=== PATIENT | male | born 1985 | race Caucasian/White ===

== ENCOUNTER 2016-04-27 22:57 | Emergency (ER) | payer SELFPAY ==
[~2016-04-27] VITALS: Wt 67.5 kg
[2016-04-28] MEDS ORDERED: SOD CHLORIDE 0.9% 500 ML IV STA (06:09)
[2016-04-28 07:27] LABS: HEMATOCRIT 40.4 % (42.0-52.0); HEMOGLOBIN 13.8 g/dl (14.0-18.0); MEAN CORPUSCULAR HEMOGLOBIN 28.4 pg (29.0-33.0); MEAN CORPUSCULAR VOLUME 83.5 fl (82.0-101.0); MEAN PLATELET VOLUME 8.1 fl (7.4-10.4); PLATELET COUNT 142 10^3/UL (140-440); RED BLOOD COUNT 4.84 10^6/ul (4.70-6.10); UNCORRECTED WBC 2.6 10^3/ul (4.8-10.8); WHITE BLOOD COUNT 2.6 10^3/ul (4.8-10.8)
[2016-04-28 07:36] LABS: POTASSIUM 3.5 mmol/L (3.5-5.1)
[2016-04-28 07:38] LABS: ALBUMIN/GLOBULIN RATIO 1.28; BILIRUBIN,INDIRECT 0.3 mg/dl (0-1.1); BILIRUBIN,TOTAL 0.3 mg/dl (0.2-1.3); CREATININE 0.6 mg/dl (0.61-1.24); TOTAL PROTEIN 8.9 g/dl (6.1-8.1)
[2016-04-28 07:39] LABS: CALCIUM 8.6 mg/dl (8.4-10.2)
[2016-04-28 07:43] LABS: CONDITION 1; LH ANALYZER COMMENTS 1
[2016-04-28] MEDS ORDERED: PANT40TA3 PO (08:30)
--- NOTE | 2016-04-28 08:32 | ERD ---
ER Documentation Chief Complaint Date/Time DATE: 04/28/16 TIME: 08:30 Chief Complaint bib his friend due to etoh intoxication HPI 30-year-old male brought to the emergency department for being intoxicated with alcohol. Patient is a very limited historian saying that he drinks a lot of alcohol. He thinks he may have vomited one episode of blood but does not report significant hemorrhage. He reports no significant abdominal pain. He reports feeling shaky but is not reported any seizures. Patient has no other acute complaints. ROS All systems reviewed and are negative except as per history of present illness. Medications Home Meds Active Scripts Pantoprazole* (Protonix*) 40 Mg Tablet., 40 MG PO DAILY, #20 TAB Prov:CALISTA MATUTE 04/28/16 Allergies Allergies: Coded Allergies: No Known Allergy (Unverified , 04/28/16) PMhx/Soc Medical and Surgical Hx: pt denies Surgical Hx Anesthesia Reaction: No Hx Neurological Disorder: Yes (HTN HLD) Hx Respiratory Disorders: No Hx Cardiac Disorders: No Hx Psychiatric Problems: No Hx Miscellaneous Medical Probl: No Hx Alcohol Use: Yes Hx Substance Use: Yes Hx Tobacco Use: Yes Smoking Status: Current every day smoker FmHx Noncontributory for chief complaint Physical Exam Vitals Vital Signs Date Time Temp Pulse Resp B/P Pulse Ox O2 Delivery O2 Flow Rate FiO2 04/28/16 05:44 98.0 78 20 163/78 97 Room Air 04/27/16 23:02 98.1 118 20 189/86 96 Physical Exam GENERAL: The patient is well developed and appropriate for usual state of health in no apparent distress HEENT: Pupils equal, round, and reactive to light. EOMI. There is no scleral icterus. NECK: C-spine is soft and supple, there is no meningismus. There is no cervical lymphadenopathy. LUNGS: Clear to auscultation bilaterally. There are no rales, wheezes or rhonchi. HEART: Regular rate and rhythm, no murmurs, clicks, rubs or gallops. ABDOMEN: Soft, non-tender, non-distended. There are bowel sounds in all four quadrants. No rebound or guarding. EXTREMITIES: There is no peripheral cyanosis or edema. No focal swelling or erythema. NEURO: The patient moves all four extremities with 5/5 strength. Cranial nerves II - XII are intact. Normal gait. Alert and oriented, but with slurred speech. He appears intoxicated. SKIN: There is no apparent rash or petechiae. HEME/LYMPHATIC: There is no evidence of excessive bruising or lymphedema. PSYCHIATRIC: The patient does not appear anxious or depressed. Result Diagram: 04/28/16 0630 04/28/16 0630 Results 24 hrs Laboratory Tests Test 04/28/16 06:30 Alanine Aminotransferase (ALT/SGPT) 98IU/L Albumin 5.0g/dl Albumin/Globulin Ratio 1.28 Alkaline Phosphatase 95IU/L Anion Gap 26 Aspartate Amino Transf (AST/SGOT) 233IU/L Basophils # Pending Basophils % Pending Blood Morphology Comment Blood Urea Nitrogen 8mg/dl Calcium Level 8.6mg/dl Carbon Dioxide Level 29mmol/L Chloride Level 101mmol/L Creatinine 0.60mg/dl Direct Bilirubin 0.00mg/dl Eosinophils # Pending Eosinophils % Pending Globulin 3.90g/dl Glucose Level 97mg/dl Hematocrit 40.4% Hemoglobin 13.8g/dl Indirect Bilirubin 0.3mg/dl Lipase 276U/L Lymphocytes # Pending Lymphocytes % Pending Mean Corpuscular Hemoglobin 28.4pg Mean Corpuscular Hemoglobin Concent 34.0g/dl Mean Corpuscular Volume 83.5fl Mean Platelet Volume 8.1fl Monocytes # Pending Monocytes % Pending Neutrophils # Pending Neutrophils % Pending Nucleated Red Blood Cells # Pending Nucleated Red Blood Cells % Pending Platelet Count 02479^3/UL Potassium Level 3.5mmol/L Red Blood Count 4.8410^6/ul Red Cell Distribution Width 17.0% Sodium Level 152mmol/L Total Bilirubin 0.3mg/dl Total Protein 8.9g/dl White Blood Count 2.610^3/ul Current Medications Medications (Trade) Dose Ordered Sig/Nithin Route PRN Reason Start Time Stop Time Status Last Admin Dose Admin Sodium Chloride (NS) 500 ml @ 500 mls/hr Q1H STAT IV 04/28/16 06:09 04/28/16 07:08 DC 04/28/16 06:30 Procedures/MDM Patient was taken to a room, seen and evaluated. Comfort measures were initiated. Diagnostic tests were ordered and reviewed. REEVALUATION: Patient was observed until more sober. Serial examinations of his abdomen remained benign and his diagnostic tests were appreciated and reviewed. MEDICAL DECISION MAKING: This is a 30-year-old male who presents intoxicated with possible GI bleed. At this time, the patient's hemoglobin is normal and he shows no evidence of high risk liver cirrhosis. He does not appear to have portal hypertension and his hemoglobin is normal. Overall, this appears to be fairly classic alcohol induced gastritis. At this time, he shows no definitive other high-risk concerns and appears to be appropriate for outpatient care. Departure Diagnosis: Primary Impression: Alcoholic intoxication Condition: Stable Patient Instructions: Alcohol Intoxication Additional Instructions: stop drinking alcohol CALISTA MATUTE Apr 28, 2016 08:32
[2016-04-28 09:18] LABS: LYMPHOCYTES # 1.1 10^3/ul (0.8-2.9); MONOCYTE # 0.3 10^3/ul (0.3-0.9); NEUTROPHIL # 1.2 10^3/ul (1.6-7.5)
[2016-04-28 09:30] VITALS: BP 119/68; PULSE 80; RESP 20; TEMP 98
== END 2016-04-28 09:32 | disposition home or self-care (01) ==
LOC: E/R 22:57
DX: F10.129 Alcohol abuse with intoxication, unspecified (principal); I10 Essential (primary) hypertension; F17.210 Nicotine dependence, cigarettes, uncomplicated
CPT/HCPCS: 36415; 80053; 83690; 85025; 99284; J7040

== ENCOUNTER 2016-09-23 06:39 | Emergency (ER) | payer SELFPAY ==
[~2016-09-23] VITALS: Ht 157.5 cm; Wt 68.0 kg
[~2016-09-23 06:39] MED LIST: PANT40TA3 PO
[2016-09-23 06:42] VITALS: Ht 157.5 cm; Wt 68.0 kg
--- NOTE | 2016-09-23 07:02 | ERD ---
ER Documentation Chief Complaint Date/Time DATE: 09/23/16 TIME: 07:02 Chief Complaint abdominal pain and vomitting blood since wednesday HPI 32-year-old male who presented emergency department for abdominal pain since Wednesday. Added that he has on and off vomiting since Wednesday. Added that he is a heavy alcohol drinker. Patient has limited past medical history. Denies headache, loss of consciousness, dizziness, blurry vision, changes in vision, photophobia, facial pain, ear pain, throat pain, difficulty swallowing, neck pain, shoulder pain, chest pain, cough, back pain, loss of appetite, hematochezia, diarrhea, constipation, urinary symptoms, bladder and bowel incontinences, extremity weakness, extremity tenderness, numbness or tingling sensation, difficulty walking, recent travel, recent exposure to illness, recent antibiotic use in the last 3 months, fever, chills. Allergy: No known drug allergies. PMH: EtOH. Medications: Denies. Surgery: Denies. Family history: Denies family history of cardiac before age 50, colon cancer. Primary Social History: Works as a garage construction equipment mechanic. Denies smoking, use of use of illegal drugs. ROS All systems reviewed and are negative except as per history of present illness. Medications Home Meds Active Scripts Ondansetron (Ondansetron Odt) 4 Mg Tab.rapdis, 4 MG PO Q8 Y for NAUSEA AND/OR VOMITING, #20 TAB Prov:MARGIILABANHILDA F 09/23/16 Pantoprazole* (Protonix*) 40 Mg Tablet.dr, 40 MG PO DAILY, #20 TAB Prov:PASILABAN,YURIAR F 09/23/16 Famotidine* (Pepcid*) 20 Mg Tablet, 20 MG PO DAILY for 14 Days, TAB Prov:PASILABAN,YURIAR F 09/23/16 Acetaminophen (Tylenol) 500 Mg Tab, 500 MG PO Q4 Y for PAIN, #20 TAB Prov:PASILABAN,YURIAR F 09/23/16 Pantoprazole* (Protonix*) 40 Mg Tablet.dr, 40 MG PO DAILY, #20 TAB Prov:CALISTA MATUTE 04/28/16 Allergies Allergies: Coded Allergies: No Known Allergy (Unverified , 04/28/16) PMhx/Soc History of Surgery: No Anesthesia Reaction: No Hx Neurological Disorder: No Hx Respiratory Disorders: No Hx Cardiac Disorders: No Hx Psychiatric Problems: No Hx Miscellaneous Medical Probl: No Hx Alcohol Use: Yes Hx Substance Use: No Hx Tobacco Use: No Smoking Status: Never smoker Physical Exam Vitals Vital Signs Date Time Temp Pulse Resp B/P Pulse Ox O2 Delivery O2 Flow Rate FiO2 09/23/16 09:42 98.1 79 18 142/69 100 Room Air 09/23/16 06:42 97.7 66 19 179/99 100 Physical Exam CONSTITUTIONAL: Well-appearing; well-nourished; in no apparent distress. HEAD: Normocephalic; atraumatic. EYES: Conjunctiva clear, sclera non-icteric, EOM intact. PERRL Ears: Hearing intact. EACs clear, TMs non-bulging, non-inflamed, translucent & mobile, ossicles normal appearance, No obstructions, no erythema, no discharges Nose: No obstructions. No polyps. No external lesions. Mucosa non-inflamed. No external lesions, septum and turbinates normal. No rhinorrhea. No discharges. Frontal sinus is non-tender to palpation. Maxillary sinus is non-tender to palpation. MOUTH: Moist mucous membranes, no lesion, no obstructions, no vesicles, no thrush, patent airway Throat: Uvula in midline. Right tonsil is +1 with no erythema, no exudate. Left tonsil is +1 with no erythema, no exudate. Tolerating secretions well. Good gag reflex. Patent airway. Neck: Supple, without lesions, bruits, or adenopathy. No mass. Thyroid non- enlarged and non-tender to palpation. CHEST: Symmetrical chest. Respirations even and not labored. No retractions noted. CARDIOVASCULAR: Normal S1, S2. RRR. No murmurs, gallops. RESPIRATORY: Normal chest excursion with respiration; breath sounds clear and equal bilaterally; no wheezes, rhonchi, or rales. Breathing even and unlabored. Speaking in clear, full, and complete sentences w/ ease. ABDOMEN: Normal bowel sounds normal. Soft, round, non-distended, non-guarding, no rebound, no organomegaly, no masses, no pulsating abdominal mass. Has diffuse abdominal tenderness. No hernia. No peritoneal signs. : Bilateral CVA tenderness. BACK: Symmetrical shoulder. Spine is midline without deformity, tenderness. No evidence of trauma or deformity. PELVIS: Stable pelvis. No evidence of trauma or deformity. MUSCULOSKELETAL: Normal gait and station. No misalignment, asymmetry, crepitation, defects, tenderness, masses, effusions, decreased range of motion, instability, atrophy or abnormal strength or tone in the head, neck, spine, ribs , pelvis or extremities. No calf tenderness. NEUROVASCULAR: Distal pulses are present. Pedal pulse are present, equal, and normal. Capillary refills are < 2 seconds. NEUROLOGIC: Alert and oriented x4. Speaks full and clear sentences. Cranial Nerves II-XII normal. Sensation to pain, touch, and proprioception normal. Grossly unremarkable. No neurologic deficits. Romberg test is negative. PSYCHOLOGICAL: The patients mood and manner are appropriate. No hallucinations , delusions. Not SI. Not HI. Has the capacity to decide for self SKIN: Normal for age and ethnicity; warm; dry; good turgor; no apparent lesions or exudates. No rashes, hives, discoloration. Intact. Result Diagram: 09/23/16 0707 09/23/16 0707 Results 24 hrs Laboratory Tests Test 09/23/16 07:07 White Blood Count 3.410^3/ul Red Blood Count 4.3210^6/ul Hemoglobin 12.6g/dl Hematocrit 38.0% Mean Corpuscular Volume 88.0fl Mean Corpuscular Hemoglobin 29.2pg Mean Corpuscular Hemoglobin Concent 33.2g/dl Red Cell Distribution Width 13.9% Platelet Count 22579^3/UL Mean Platelet Volume 10.3fl Neutrophils % 55.1% Lymphocytes % 33.3% Monocytes % 8.6% Eosinophils % 2.1% Basophils % 0.6% Nucleated Red Blood Cells % 0.0/100WBC Neutrophils # 1.910^3/ul Lymphocytes # 1.110^3/ul Monocytes # 0.310^3/ul Eosinophils # 0.110^3/ul Basophils # 0.010^3/ul Nucleated Red Blood Cells # 0.010^3/ul Prothrombin Time 12.4Sec Prothrombin Time Ratio 1.0 INR International Normalized Ratio 0.92 Activated Partial Thromboplast Time 27.8Sec Urine Color YELLOW Urine Clarity CLEAR Urine pH 5.5 Urine Specific [place] >=1.030 Urine Ketones NEGATIVE Urine Nitrite NEGATIVE Urine Bilirubin 1+ Urine Ictotest NEGATIVE Urine Urobilinogen 1.0 E.U./dL Urine Leukocyte Esterase NEGATIVE Urine Microscopic RBC NONE SEEN/HPF Urine Microscopic WBC NONE SEEN/HPF Urine Hemoglobin NEGATIVE Urine Glucose NEGATIVE% Urine Total Protein TRACE Sodium Level 143mmol/L Potassium Level 4.2mmol/L Chloride Level 102mmol/L Carbon Dioxide Level 31mmol/L Anion Gap 14 Blood Urea Nitrogen 8mg/dl Creatinine 0.65mg/dl Glucose Level 95mg/dl Calcium Level 9.7mg/dl Total Bilirubin 0.8mg/dl Direct Bilirubin 0.00mg/dl Indirect Bilirubin 0.8mg/dl Aspartate Amino Transf (AST/SGOT) 42IU/L Alanine Aminotransferase (ALT/SGPT) 41IU/L Alkaline Phosphatase 62IU/L Total Protein 7.9g/dl Albumin 5.1g/dl Globulin 2.80g/dl Albumin/Globulin Ratio 1.82 Amylase Level 108U/L Lipase 54U/L Current Medications Medications (Trade) Dose Ordered Sig/Nithin Route PRN Reason Start Time Stop Time Status Last Admin Dose Admin Ondansetron HCl (Zofran Inj) 4 mg ONCE STAT IV 09/23/16 07:10 09/23/16 07:12 DC 09/23/16 07:14 Acetaminophen/ Hydrocodone Bitart ([place] (5/325)) 1 tab ONCE ONCE PO 09/23/16 09:30 09/23/16 09:31 DC 09/23/16 09:32 Procedures/MDM Examination: Please see physical examination. Disease process, medical treatment was explained to the patient and family member. They verbalized understanding and agreed with the diagnostic tests, medical treatment, and follow-up care. Blood works: Reviewed. Urinalysis: Reviewed. Treatment: IV insertion. Re-evaluation: Alert and oriented 4. Speaks full and clear sentences. Denies headache, dizziness, blurred vision, neck pain, throat pain, difficulty swallowing, shoulder pain, chest pain, back pain, abdominal pain, nausea. Tolerating secretions. No difficulty swallowing. Able to tolerate one cup of water by mouth. Patent airway. No episode of emesis in the emergency department. There is no right upper/right lower/epigastric/left upper/left lower abdominal tenderness and light and deep palpation. Able to jump 10 times without developing abdominal pain. No peritoneal signs. No CVA tenderness. No neurovascular deficits. No neurological deficits. Consultation: None. Differential diagnosis: Abdominal pain secondary to EtOH versus vomiting Medical decision makin-year-old male who presented emergency department for abdominal pain since Wednesday. Added that he has on and off vomiting since Wednesday. Added that he is a heavy alcohol drinker. Patient has limited past medical history. Patient's complaint, patient history about his complaint, my physical findings, diagnostic test results, my reevaluation are consistent my final diagnosis diverticulosis, abdominal pain. Medications prescribed are the following: Zofran. Pepcid. Tylenol. Patient and family member are made aware of the side effects and adverse reactions of the medications prescribed. Instructed on when to seek emergent and medical attention in case allergic/anaphylactic reactions or severe side effects and or adverse reactions to medications. Patient and family member verbalized understanding. Patient instructed Instructed to follow-up with his PCP in 24-48 hours. Instructed to Call 911 for chest pain, shortness of breath. Advised to come back here in ED as soon as possible for severity of symptoms which includes but not limited to: any new symptoms; shortness of breath/difficulty of breathing; cardiovascular changes; severe gastrointestinal symptoms; signs and symptoms of bleeding and or infection; signs of compartment syndrome/neurovascular changes; neurological changes/deficits. Patient and family member verbalized understanding. Upon discharge, patient is alert and oriented x 4, speaks full and clear sentences, denies pain, has no neurological deficits, has no neurovascular deficits, difficulty of breathing. Breathing even and unlabored. Lung sounds are clear to auscultation. Not in distress. Appears comfortable. Ambulatory with steady gait. Appears satisfied with care provided here in ED. Departure Diagnosis: Primary Impression: Abdominal pain Additional Impression: Diverticulosis Condition: Stable Additional Instructions: Instructed to follow-up with his PCP in 24-48 hours. Instructed to Call 911 for chest pain, shortness of breath. Advised to come back here in ED as soon as possible for severity of symptoms which includes but not limited to: any new symptoms; shortness of breath/difficulty of breathing; cardiovascular changes; severe gastrointestinal symptoms; signs and symptoms of bleeding and or infection; signs of compartment syndrome/neurovascular changes; neurological changes/deficits. Patient and family member verbalized understanding. HILDA CARDONA Sep 23, 2016 07:02
[2016-09-23] MEDS ORDERED: ONDANSETRON 4 MG INJ IV STA (07:10)
[2016-09-23 07:18] LABS: ADD SCAN DIFF NO
[2016-09-23 07:22] LABS: ADD UMIC YES; BASOPHILS % 0.6 % (0.0-2.0); EOSINOPHILS # 0.1 10^3/ul (0.0-0.5); EOSINOPHILS % 2.1 % (0.0-7.0); HEMOGLOBIN 12.6 g/dl (14.0-18.0); LYMPHOCYTES # 1.1 10^3/ul (0.8-2.9); LYMPHOCYTES % 33.3 % (15.0-51.0); MEAN CORPUSCULAR HEMOGLOBIN 29.2 pg (29.0-33.0); MEAN CORPUSCULAR HGB CONC 33.2 g/dl (32.0-37.0); MEAN PLATELET VOLUME 10.3 fl (7.4-10.4); MONOCYTE # 0.3 10^3/ul (0.3-0.9); MONOCYTES % 8.6 % (0.0-11.0); NEUTROPHIL # 1.9 10^3/ul (1.6-7.5); NEUTROPHILS % 55.1 % (39.0-77.0); PLATELET COUNT 237 10^3/UL (140-415); RED BLOOD COUNT 4.32 10^6/ul (4.70-6.10); RED CELL DISTRIBUTION WIDTH 13.9 % (11.5-14.5); UR BILIRUBIN (Dip) 1+ (NEGATIVE); UR BLOOD (Dip) NEGATIVE (NEGATIVE); UR CLARITY CLEAR (CLEAR); UR COLOR YELLOW (YELLOW); UR GLUCOSE (Dip) NEGATIVE (NEGATIVE); UR KETONES (Dip) NEGATIVE (NEGATIVE); UR LEUKOCYTE ESTERASE (Dip) NEGATIVE (NEGATIVE); UR NITRITE (Dip) NEGATIVE (NEGATIVE); UR TOTAL PROTEIN (Dip) TRACE (NEGATIVE); UR UROBILINOGEN (Dip) 1.0 E.U./dL (0.1-1.0); WHITE BLOOD COUNT 3.4 10^3/ul (4.8-10.8)
[2016-09-23 07:36] LABS: INR 0.92; PROTIME 12.4 Sec (12.2-14.2)
[2016-09-23 07:37] LABS: PARTIAL THROMBOPLASTIN TIME 27.8 Sec (25.0-35.0)
[2016-09-23 07:43] LABS: ALBUMIN 5.1 g/dl (3.3-4.9); ALBUMIN/GLOBULIN RATIO 1.82; BILIRUBIN,INDIRECT 0.8 mg/dl (0-1.1); BILIRUBIN,TOTAL 0.8 mg/dl (0.2-1.3); CALCIUM 9.7 mg/dl (8.4-10.2); CREATININE 0.65 mg/dl (0.61-1.24); ICTOTEST NEGATIVE (NEGATIVE); POTASSIUM 4.2 mmol/L (3.5-5.1); TOTAL PROTEIN 7.9 g/dl (6.1-8.1); URINE RBCS NONE SEEN /HPF (0)
--- NOTE | 2016-09-23 09:07 | RADRPT ---
PROCEDURE: CT Abdomen and Pelvis without contrast. CLINICAL INDICATION: Abdominal pain. TECHNIQUE: Routine axial tomographic images of the abdomen and pelvis were obtained from the domes the diaphragm to the symphysis pubis. The patient was scanned withoutoral or intravenous contrast. Coronal and sagittal reformatted images were obtained from the axial source images. Images were re viewed on a high-resolution PACS workstation. The total exam CTDI equals 7.97 mGy and the total exam DLP equals 475.29 mGy-cm. One or more of the following dose reduction techniques were used: Autom ated exposure control, adjustment of the mA and / or kV according to patient size, or use of iterati ve reconstruction technique. COMPARISON: None. FINDINGS: The visualized portions of the lung bases are clear. Evaluation of the intra-abdominal solid or aga is somewhat limited on this noncontrast examination. The liver appears normal in size. There is no intra or extrahepatic biliary dilatation. The gallbladder is unremarkable by CT criteria. Th e spleen, pancreas, and adrenal glands are unremarkable. The kidneys are symmetric in size. No renal, ureteral, or bladder calculi are identified. No perine phric inflammatory changes are identified. The urinary bladder is grossly unremarkable. The bowel demonstrates normal course and caliber. There is no evidence of bowel obstruction. The a ppendix is normal in appearance. Diverticula are seen within the sigmoid colon. The pelvic organs ar e grossly unremarkable. No intraperitoneal free fluid, free air, or abscess is identified. No retro peritoneal, mesenteric, or inguinal lymphadenopathy is identified. The aorta is normal in caliber. The osseous structures are unremarkable. No significant subcutaneous soft tissue abnormalities are seen. IMPRESSION: 1. Limited noncontrast CT of the abdomen and pelvis. No acute intra-abdominal abnormality identifi ed. 2. Sigmoid diverticulosis, RPTAT: HH .Radha Juarez MD, Date Time Electronically viewed and signed by .Radha Juarez MD, MD on 09/23/2016 09:07 .G/
[2016-09-23] MEDS ORDERED: ACET500T98 PO (09:16)
[2016-09-23] MEDS ORDERED: PANT40TA3 PO (09:17)
[2016-09-23] MEDS ORDERED: FAMO-18 PO (09:17)
[2016-09-23] MEDS ORDERED: ONDA4TAB14 PO (09:17)
[2016-09-23] MEDS ORDERED: HYDROCODONE/APAP (5/325) TAB PO ONE (09:30)
[2016-09-23 09:42] VITALS: BP 142/69; PULSE 79; RESP 18; TEMP 98.1
== END 2016-09-23 09:44 | disposition home or self-care (01) ==
LOC: FTE 06:39
DX: R10.84 Generalized abdominal pain (principal); K57.90 Diverticulosis of intestine, part unspecified, without perforation or abscess without bleeding; R11.10 Vomiting, unspecified
CPT/HCPCS: 36415; 74176; 80053; 81001; 82150; 83690; 85025; 85610; 85730; 96374; 99285; J2405

== ENCOUNTER 2016-11-23 11:00 | Emergency (ER) | payer SELFPAY ==
[~2016-11-23] VITALS: Ht 167.6 cm; Wt 68.0 kg
[~2016-11-23 11:00] MED LIST changes: +ACET500T98 PO; +FAMO-96 PO; +ONDA4TAB14 PO
[2016-11-23 11:06] VITALS: Ht 167.6 cm; Wt 68.0 kg
--- NOTE | 2016-11-23 11:35 | ERA ---
ER Documentation Chief Complaint Date/Time DATE: 11/23/16 TIME: 11:34 Chief Complaint Pt with AP and ETOH intoxication since last night. HPI The patient is a 32-year-old male, presenting to the ER because of vomiting of blood this morning around 5 AM; however he continued drinking. His last alcohol intake was about 6 AM this morning. He has presented to the ER on September 23, 2016 for similar symptoms. He came to the ER by taxi. He denies fever, chills, syncope, near syncope, seizure, neck pain, chest pain. He complains of diffuse abdominal pain after vomiting, denies dysuria, polyuria. He does not smoke, drinks regularly, denies illicit drug Past medical/surgical history: None ROS All systems reviewed and are negative except as per history of present illness. Medications Home Meds Active Scripts Ondansetron (Ondansetron Odt) 4 Mg Tab.rapdis, 4 MG PO Q8 Y for NAUSEA AND/OR VOMITING, #20 TAB Prov:PASILABAN,KLAR F 09/23/16 Pantoprazole* (Protonix*) 40 Mg Tablet.dr, 40 MG PO DAILY, #20 TAB Prov:PASILABAN,KLAR F 09/23/16 Famotidine* (Pepcid*) 20 Mg Tablet, 20 MG PO DAILY for 14 Days, TAB Prov:PASILABAN,KLAR F 09/23/16 Acetaminophen (Tylenol) 500 Mg Tab, 500 MG PO Q4 Y for PAIN, #20 TAB Prov:PASILABAN,KLAR F 09/23/16 Pantoprazole* (Protonix*) 40 Mg Tablet.dr, 40 MG PO DAILY, #20 TAB Prov:CALISTA MATUTE 04/28/16 Allergies Allergies: Coded Allergies: No Known Allergy (Unverified , 04/28/16) PMhx/Soc History of Surgery: No Anesthesia Reaction: No Hx Neurological Disorder: No Hx Respiratory Disorders: No Hx Cardiac Disorders: No Hx Psychiatric Problems: No Hx Miscellaneous Medical Probl: No Hx Alcohol Use: Yes Hx Substance Use: No Hx Tobacco Use: No Physical Exam Vitals Vital Signs Date Time Temp Pulse Resp B/P Pulse Ox O2 Delivery O2 Flow Rate FiO2 11/23/16 13:15 95 17 130/97 99 Room Air 11/23/16 11:06 97.5 85 18 150/108 98 Physical Exam Const: No acute distress. Head: Atraumatic. Eyes: Normal Conjunctiva. ENT: Normal External Ears, Nose and Mouth. Neck: Full range of motion. No meningismus. Resp: Clear to auscultation bilaterally. Cardio: Regular rate and rhythm. Abd: Soft, non distended, normal bowel sounds, diffuse abdominal tenderness, no rigidity, rebound, CVA tenderness Skin: No petechiae or rashes. Back: No midline or flank tenderness. Ext: No cyanosis, or edema. Neur: Awake and alert. No focal deficit Psych: Normal Mood and Affect. Result Diagram: 11/23/16 1158 11/23/16 1158 Results 24 hrs Laboratory Tests Test 11/23/16 11:58 11/23/16 13:18 White Blood Count 2.410^3/ul Red Blood Count 4.7210^6/ul Hemoglobin 13.4g/dl Hematocrit 38.9% Mean Corpuscular Volume 82.4fl Mean Corpuscular Hemoglobin 28.4pg Mean Corpuscular Hemoglobin Concent 34.4g/dl Red Cell Distribution Width 14.7% Platelet Count 58637^3/UL Mean Platelet Volume 10.3fl Neutrophils % % Segmented Neutrophils % (Manual) 31% Band Neutrophils % (Manual) 1% Lymphocytes % % Lymphocytes % (Manual) 63% Monocytes % % Monocytes % (Manual) 4% Eosinophils % % Eosinophils % (Manual) 1% Basophils % % Nucleated Red Blood Cells % 0.0/100WBC Neutrophils # 10^3/ul Neutrophils # (Manual) 0.710^3/ul Band Neutrophils # 0.010^3/ul Absolute Lymphocytes (Manual) 1.510^3/ul Lymphocytes # 10^3/ul Monocytes # 10^3/ul Absolute Monocytes (Manual) 0.010^3/ul Eosinophils # 10^3/ul Basophils # 10^3/ul Nucleated Red Blood Cells # 10^3/ul Pathologist Review (Hematology) YES Thrombocytosis 3% Platelet Estimate NORMAL Polychromasia 3+ Ovalocytes 1+ Prothrombin Time 12.1Sec Prothrombin Time Ratio 0.9 INR International Normalized Ratio 0.90 Activated Partial Thromboplast Time 27.9Sec Sodium Level 145mmol/L Potassium Level 3.5mmol/L Chloride Level 100mmol/L Carbon Dioxide Level 25mmol/L Anion Gap 24 Blood Urea Nitrogen 3mg/dl Creatinine 0.57mg/dl Glucose Level 157mg/dl Calcium Level 9.4mg/dl Total Bilirubin 0.3mg/dl Direct Bilirubin 0.00mg/dl Indirect Bilirubin 0.3mg/dl Aspartate Amino Transf (AST/SGOT) 83IU/L Alanine Aminotransferase (ALT/SGPT) 43IU/L Alkaline Phosphatase 78IU/L Total Protein 8.6g/dl Albumin 4.9g/dl Globulin 3.70g/dl Albumin/Globulin Ratio 1.32 Lipase 152U/L Ethyl Alcohol Level 494.0mg/dl Bedside Urine pH (LAB) 6.0 Bedside Urine Protein (LAB) Negative Bedside Urine Glucose (UA) Negative Bedside Urine Ketones (LAB) Negative Bedside Urine Blood Trace-intact Bedside Urine Nitrite (LAB) Negative Bedside Urine Leukocyte Esterase (L Negative Current Medications Medications (Trade) Dose Ordered Sig/Nithin Route PRN Reason Start Time Stop Time Status Last Admin Dose Admin Morphine Sulfate (morphine) 4 mg ONCE STAT IV 11/23/16 11:41 11/23/16 11:44 DC 11/23/16 13:16 Ondansetron HCl (Zofran Inj) 4 mg ONCE STAT IV 11/23/16 11:41 11/23/16 11:44 DC 11/23/16 12:04 Procedures/[place] [id number] Radiology Main Line: [phone] DIAGNOSTIC IMAGING REPORT Patient: ANGEL FUNK : 1985 Age: 31 Sex: M MR #: [id number] DOS: 11/23/16 1141 Ordering MD: SHEA COYLE MD Location: E/R Room/Bed: PROCEDURE: CT Abdomen and Pelvis without contrast. CLINICAL INDICATION: Abdominal pain. Hemoptysis. TECHNIQUE: CT scan of the abdomen and pelvis without contrast was performed on a multidetector high-resolution CT scanner. The patient was scanned without intravenous contrast. Coronal and sagittal reformatted images were obtained from the axial source images. Images were reviewed on a high-resolution PACS workstation. One or more of the following dose reduction techniques were used: Automated exposure control, adjustment of the mA and/or kV according to patient size, use of iterative reconstruction technique. The total exam CTDI equals 8.49 mGy and the total exam DLP equals 514.42 mGy-cm. COMPARISON: CT from 09/23/2016 FINDINGS: Minimal bilateral lower lobe dependent atelectatic changes are present. Otherwise, the visualized portions of the lung bases are clear. Evaluation of the intra-abdominal solid organs is somewhat limited on this noncontrast examination. The liver appears normal in size. There is interval development of diffuse hypoattenuation of the liver. There is no evidence of focal hepatic mass or intra or extrahepatic biliary dilatation. The gallbladder is unremarkable by CT criteria. The spleen, pancreas, and adrenal glands are unremarkable. The kidneys are symmetric in size. No renal, ureteral, or bladder calculi are identified. No perinephric inflammatory changes are identified. The urinary bladder is grossly unremarkable. The bowel demonstrates normal course and caliber. There is no evidence of bowel obstruction. The appendix is normal in appearance. Diverticula are seen within the sigmoid colon. The pelvic organs are grossly unremarkable. No intraperitoneal free fluid, free air, or abscess is identified. No retroperitoneal, mesenteric, or inguinal lymphadenopathy is identified. The aorta is normal in caliber. The osseous structures are unremarkable. No significant subcutaneous soft tissue abnormalities are seen. IMPRESSION: 1. Limited noncontrast CT of the abdomen and pelvis. No acute intra-abdominal inflammatory process is seen. 2. Interval development of diffuse severe hepatic steatosis, new since the . 3. Sigmoid diverticulosis. RPTAT: JJ .Nile Chua MD, Date Time Electronically viewed and signed by .Nile Chua MD, on 11/23/2016 13:14 .A/ CC: SHEA COYLE MD MEDICAL MAKING DECISION: The patient is a 31-year-old male, presenting to the ER because of abdominal pain due to heavy alcohol consumption. I do not suspect acute hematemesis. He has not vomited in the ER, the nurse has tried to insert a nasogastric tube but he declined. Risks, benefits, alternatives were explained to the patient. Risks include but not limited to and permanent disability. He vomited clear emesis during a nasogastric tube insertion. He was treated with morphine 4 mg IV for pain, Zofran 4 mg IV for nausea with good response. Currently resting well in the emergency department. His abdominal pain is most likely due to heavy alcohol consumption The differential diagnoses considered include but are not limited to alcohol induced gastritis, Tasha-Lopez tear, cholelithiasis, cholecystitis, cystitis, pancreatitis, hepatitis, gastritis, peptic ulcer disease, gastric ulcer, appendicitis, diverticulitis, cholangitis, choledocholithiasis, partial small bowel obstruction. Departure Diagnosis: Primary Impression: Abdominal pain Additional Impressions: Alcoholic intoxication Anemia Leukopenia Condition: Good Comments He will be discharged once he joe I discussed the findings with the patient. I advised the patient to follow-up with the primary physician in about 1-2 days, sooner if needed and return if any concern. The patient's blood pressure was elevated (>120/80) but appears stable without evidence of hypertension emergency or urgency. The patient was counseled about the risks of hypertension and urged to pursue outpatient monitoring and therapy within a week with their primary care physician. SHEA CYOLE MD Nov 23, 2016 11:35
[2016-11-23] MEDS ORDERED: morphine 4 MG/ML VIAL IV STA (11:41)
[2016-11-23] MEDS ORDERED: ONDANSETRON 4 MG INJ IV STA (11:41)
[2016-11-23 12:09] LABS: ABNORMAL IP MESSAGE 1; HEMATOCRIT 38.9 % (42.0-52.0); HEMOGLOBIN 13.4 g/dl (14.0-18.0); MEAN CORPUSCULAR HEMOGLOBIN 28.4 pg (29.0-33.0); MEAN CORPUSCULAR HGB CONC 34.4 g/dl (32.0-37.0); MEAN CORPUSCULAR VOLUME 82.4 fl (82.0-101.0); MEAN PLATELET VOLUME 10.3 fl (7.4-10.4); PLATELET COUNT 143 10^3/UL (140-415); POSITIVE DIFF @See below; RED BLOOD COUNT 4.72 10^6/ul (4.70-6.10); RED CELL DISTRIBUTION WIDTH 14.7 % (11.5-14.5)
[2016-11-23 12:26] LABS: INR 0.9; PROTIME 12.1 Sec (12.2-14.2); PT RATIO 0.9
[2016-11-23 12:27] LABS: PARTIAL THROMBOPLASTIN TIME 27.9 Sec (25.0-35.0)
[2016-11-23 12:29] LABS: ALBUMIN 4.9 g/dl (3.3-4.9); ALBUMIN/GLOBULIN RATIO 1.32; BILIRUBIN,INDIRECT 0.3 mg/dl (0-1.1); BILIRUBIN,TOTAL 0.3 mg/dl (0.2-1.3); CALCIUM 9.4 mg/dl (8.4-10.2); CREATININE 0.57 mg/dl (0.61-1.24); POTASSIUM 3.5 mmol/L (3.5-5.1); TOTAL PROTEIN 8.6 g/dl (6.1-8.1)
[2016-11-23 13:07] LABS: EOSINOPHILS % (M) 1 % (0-7); GIANT THROMBO% (M) 3 % (0-0); MONOCYTES % (M) 4 % (0-11); OVALOCYTES 1+ (0-0); PLATELET ESTIMATE NORMAL; POLYCHROMASIA 3+ (0-0)
[2016-11-23 13:13] LABS: URINE BLOOD (Dip) POC Trace-intact (NEGATIVE)
--- NOTE | 2016-11-23 13:14 | RADRPT ---
PROCEDURE: CT Abdomen and Pelvis without contrast. CLINICAL INDICATION: Abdominal pain. Hemoptysis. TECHNIQUE: CT scan of the abdomen and pelvis without contrast was performed on a multidetector hig h-resolution CT scanner. The patient was scanned without intravenous contrast. Coronal and sagittal reformatted images were obtained from the axial source images. Images were reviewed on a high-resol [employer] PACS workstation. One or more of the following dose reduction techniques were used: Automated exposure control, adjustment of the mA and/or kV according to patient size, use of iterative recon struction technique. The total exam CTDI equals 8.49 mGy and the total exam DLP equals 514.42 mGy-c m. COMPARISON: CT from 09/23/2016 FINDINGS: Minimal bilateral lower lobe dependent atelectatic changes are present. Otherwise, the visualized portions of the lung bases are clear. Evaluation of the intra-abdominal solid organs is somewhat nance ited on this noncontrast examination. The liver appears normal in size. There is interval developmen t of diffuse hypoattenuation of the liver. There is no evidence of focal hepatic mass or intra or e xtrahepatic biliary dilatation. The gallbladder is unremarkable by CT criteria. The spleen, pancreas , and adrenal glands are unremarkable. The kidneys are symmetric in size. No renal, ureteral, or bladder calculi are identified. No perinep hric inflammatory changes are identified. The urinary bladder is grossly unremarkable. The bowel demonstrates normal course and caliber. There is no evidence of bowel obstruction. The jn endix is normal in appearance. Diverticula are seen within the sigmoid colon. The pelvic organs are grossly unremarkable. No intraperitoneal free fluid, free air, or abscess is identified. No retroper itoneal, mesenteric, or inguinal lymphadenopathy is identified. The aorta is normal in caliber. The osseous structures are unremarkable. No significant subcutaneous soft tissue abnormalities are seen. IMPRESSION: 1. Limited noncontrast CT of the abdomen and pelvis. No acute intra-abdominal inflammatory process is seen. 2. Interval development of diffuse severe hepatic steatosis, new since the 09/23/2016. 3. Sigmoid diverticulosis. RPTAT: JJ .Nile Chua MD, MD Date Time Electronically viewed and signed by .Nile Chua MD, on 11/23/2016 13:14 .A/
[2016-11-23 13:25] LABS: PATH REVIEW? YES
[2016-11-23 14:47] LABS: BARBITURATES Negative (NEGATIVE); BENZODIAZEPINES Negative (NEGATIVE); CANNABINOIDS Negative (NEGATIVE); COCAINE Negative (NEGATIVE); OPIATES Negative (NEGATIVE)
[2016-11-23 17:37] VITALS: TEMP 98
[2016-11-23 19:20] VITALS: BP 130/92; PULSE 72; RESP 18
[2016-11-24 16:28] LABS: WHITE BLOOD COUNT 2.4 10^3/ul (4.8-10.8)
--- NOTE | 2016-11-27 14:02 | RADRPT ---
PROCEDURE: XR Chest. CLINICAL INDICATION: Aspiration TECHNIQUE: Single frontal view of the chest was obtained COMPARISON: None FINDINGS: No pleural effusion or pneumothorax. No consolidation. Normal cardiomediastinal silhouette. No acute osseous abnormality. IMPRESSION: No acute cardiopulmonary disease. RPTAT: EE Lalo Erickson Physician Date Time Electronically viewed and signed by Lalo Erickson Physician on 11/23/2016 14:49 /
== END 2016-11-23 19:21 | disposition home or self-care (01) ==
LOC: E/R 11:00
DX: R10.84 Generalized abdominal pain (principal); F10.129 Alcohol abuse with intoxication, unspecified; D64.9 Anemia, unspecified; D72.819 Decreased white blood cell count, unspecified; R11.10 Vomiting, unspecified; R40.2142 Coma scale, eyes open, spontaneous, at arrival to emergency department; R40.2252 Coma scale, best verbal response, oriented, at arrival to emergency department; R40.2362 Coma scale, best motor response, obeys commands, at arrival to emergency department
CPT/HCPCS: 36415; 71010; 74176; 80053; 80306; 80307; 81003; 83690; 85025; 85610; 85730; 86850; 86900; 86901; 96374; 96375; 99285; J2270; J2405

== ENCOUNTER 2016-12-15 14:43 | Emergency (ER) | payer SELFPAY ==
[~2016-12-15] VITALS: Ht 157.5 cm; Wt 67.0 kg
[2016-12-15 14:50] VITALS: Ht 157.5 cm; Wt 67.0 kg
== END 2016-12-15 22:36 | disposition left against medical advice (07) ==
LOC: E/R 14:43
DX: Z53.21 Procedure and treatment not carried out due to patient leaving prior to being seen by health care provider (principal)

== ENCOUNTER 2017-01-10 05:33 | Inpatient (IN) | payer MEDICAID ==
[~2017-01-10] VITALS: Ht 162.6 cm; Wt 61.8 kg
--- NOTE | 2017-01-10 06:03 | ERA ---
ER Documentation Chief Complaint Date/Time DATE: 01/10/17 TIME: 06:01 Chief Complaint etoh intoxication, vomited blood today, blood in stools HPI This is a 31-year-old male with a history of chronic daily heavy alcohol abuse who is presenting intoxicated. He reports an episode of bloody stools as well as bloody vomitus over the last 1-2 days. He also reports a generalized abdominal pain and cramping with fatigue and weakness. The patient denies fever or chills. The patient has had no headache or vision changes. The patient denies lightheadedness or dizziness. The patient has had no chest pain or shortness of breath trouble breathing. The patient denies changes to urination. The patient has had no focal deficits. The patient has had no weakness or numbness or tingling to the face or extremities. ROS All systems reviewed and are negative except as per history of present illness. Medications Home Meds Discontinued Scripts Ondansetron (Ondansetron Odt) 4 Mg Tab.rapdis, 4 MG PO Q8 Y for NAUSEA AND/OR VOMITING, #20 TAB Prov:PASILABAN,YURIAR F 09/23/16 Pantoprazole* (Protonix*) 40 Mg Tablet.dr, 40 MG PO DAILY, #20 TAB Prov:PASILABAN,KLAR F 09/23/16 Famotidine* (Pepcid*) 20 Mg Tablet, 20 MG PO DAILY for 14 Days, TAB Prov:PASILABAN,KLAR F 09/23/16 Acetaminophen (Tylenol) 500 Mg Tab, 500 MG PO Q4 Y for PAIN, #20 TAB Prov:PASILABAN,KLAR F 09/23/16 Pantoprazole* (Protonix*) 40 Mg Tablet.dr, 40 MG PO DAILY, #20 TAB Prov:CALISTA MATUTE 04/28/16 Allergies Allergies: Coded Allergies: No Known Allergy (Unverified , 01/10/17) PMhx/Soc History of Surgery: No Anesthesia Reaction: No Hx Neurological Disorder: No Hx Respiratory Disorders: No Hx Cardiac Disorders: No Hx Psychiatric Problems: No Hx Miscellaneous Medical Probl: No Hx Alcohol Use: Yes Hx Substance Use: No Hx Tobacco Use: No FmHx Family History: No diabetes Physical Exam Vitals Vital Signs Date Time Temp Pulse Resp B/P Pulse Ox O2 Delivery O2 Flow Rate FiO2 01/10/17 07:05 84 17 124/78 99 Room Air 01/10/17 05:38 98.3 85 20 123/71 97 Physical Exam Const: No apparent distress, well-developed, well-nourished Head: Atraumatic Eyes: Normal Conjunctiva. Extraocular movements intact. ENT: Normal External Ears, Nose and Mouth. Neck: Full range of motion. ~ No meningismus. Resp: Clear to auscultation bilaterally Cardio: Regular rate and rhythm, no murmurs Abd: Soft, non tender, non distended. Normal bowel sounds Skin: No petechiae or rashes Back: No midline or flank tenderness Ext: No cyanosis, or edema Neur: Awake and alert, oriented 4. Cranial nerves intact. No facial droop. Normal strength and sensation in all extremities. Coordination with finger to nose normal. Psych: Normal Mood and Affect Result Diagram: 01/10/17 0655 01/10/17 0655 Results 24 hrs Laboratory Tests Test 01/10/17 06:51 01/10/17 06:55 01/10/17 07:08 01/10/17 07:33 Urine Color YELLOW Urine Clarity CLEAR Urine pH 6.0 Urine Specific [place] 1.008 Urine Ketones TRACEmg/dL Urine Nitrite NEGATIVEmg/dL Urine Bilirubin NEGATIVEmg/dL Urine Urobilinogen NEGATIVEmg/dL Urine Leukocyte Esterase NEGATIVELeu/ul Urine Microscopic RBC 0/HPF Urine Microscopic WBC 1/HPF Urine Hemoglobin NEGATIVEmg/dL Urine Glucose NEGATIVEmg/dL Urine Total Protein 1+mg/dl White Blood Count 2.110^3/ul Red Blood Count 4.4810^6/ul Hemoglobin 12.6g/dl Hematocrit 36.7% Mean Corpuscular Volume 81.9fl Mean Corpuscular Hemoglobin 28.1pg Mean Corpuscular Hemoglobin Concent 34.3g/dl Red Cell Distribution Width 16.7% Platelet Count 7210^3/UL Mean Platelet Volume 11.5fl Neutrophils % % Segmented Neutrophils % (Manual) 26% Lymphocytes % % Lymphocytes % (Manual) 56% Monocytes % % Monocytes % (Manual) 16% Eosinophils % % Eosinophils % (Manual) 1% Basophils % % Basophils % (Manual) 1% Nucleated Red Blood Cells % 0.0/100WBC Neutrophils # 10^3/ul Absolute Lymphocytes (Manual) 1.110^3/ul Lymphocytes # 10^3/ul Monocytes # 10^3/ul Absolute Monocytes (Manual) 0.310^3/ul Eosinophils # 10^3/ul Basophils # 10^3/ul Basophils # (Manual) 0.010^3/ul Nucleated Red Blood Cells # 10^3/ul White Cell Morphology Comment @See below Platelet Estimate DECREASED Giant Platelets 2% Polychromasia 3+ Anisocytosis 1+ Red Cell Morphology Comment @See below Sodium Level 139mmol/L Potassium Level 2.5mmol/L Chloride Level 91mmol/L Carbon Dioxide Level 30mmol/L Anion Gap 21 Blood Urea Nitrogen 14mg/dl Creatinine 0.65mg/dl Glucose Level 93mg/dl Calcium Level 8.5mg/dl Total Bilirubin 0.8mg/dl Direct Bilirubin 0.00mg/dl Indirect Bilirubin 0.8mg/dl Aspartate Amino Transf (AST/SGOT) 215IU/L Alanine Aminotransferase (ALT/SGPT) 89IU/L Alkaline Phosphatase 92IU/L Total Protein 8.6g/dl Albumin 4.8g/dl Globulin 3.80g/dl Albumin/Globulin Ratio 1.26 Lipase 404U/L Stool Occult Blood NEGATIVE Iron Level 72ug/dl Total Iron Binding Capacity 380ug/dl Percent Iron Saturation 19% SAT Hepatitis B Surface Antigen NEGATIVE Hepatitis B Core Total Antibody NEGATIVE Hepatitis C Antibody NEGATIVE Current Medications Medications (Trade) Dose Ordered Sig/Nithin Route PRN Reason Start Time Stop Time Status Last Admin Dose Admin Sodium Chloride (NS) 1,000 ml @ 1,000 mls/hr Q1H STAT IV 01/10/17 06:18 01/10/17 07:17 DC 01/10/17 07:09 Ondansetron HCl (Zofran Inj) 4 mg ONCE STAT IV 01/10/17 06:18 01/10/17 06:21 DC 01/10/17 07:10 Pantoprazole (Protonix Iv) 80 mg ONCE ONCE IV 01/10/17 06:30 01/10/17 06:31 DC 01/10/17 07:10 Potassium Chloride 60 meq 60 meq ONCE STAT PO 01/10/17 08:21 01/10/17 08:23 DC 01/10/17 08:50 Potassium Chloride 50 ml @ 50 mls/hr Q1H IVPB 01/10/17 08:30 01/10/17 10:29 DC 01/10/17 09:47 Sodium Chloride (NS) 1,000 ml @ 80 mls/hr [id number] IV 01/10/17 09:42 01/10/17 22:11 01/10/17 12:46 Procedures/[facility] The patient's presentation warrants further investigation. He is describing symptoms that are concerning for a possible GI bleed. The patient's vital signs are stable and he does not appear anemic. The patient also endorses not eating over the last several days because of his nausea and vomiting. A metabolic abnormality is also possibility. The patient could also potentially have an alternative intra-abdominal pathology. LFTs will be completed. Renal function testing will be obtained. A lipase will also be obtained. LABS The patient's blood work was obtained and reviewed. The patient is leukopenic today. Upon review of old medical records, the patient is chronically leukopenic. The patient is afebrile, and I do not suspect a systemic infection. The patient is mildly anemic today. He is at his baseline. A rectal exam was completed. There was no flank bleeding, hematochezia or melena. It was fecal occult negative. Additionally, the patient's BUN is within normal limits. I have low suspicion for a GI bleed at this time. The patient is thrombocytopenic in the emergency department as well. This is a change from November. This may be sequela from liver disease, but it should be serially evaluated in the hospital. The patient's CMP shows significant hypokalemia as well that will require admission for repletion. A low potassium could cause nausea as well as abdominal cramping. He does endorse decreased oral intake. The patient has normal renal function testing. The patient's AST to ALT is approximately 2-1. I am suspicious of alcoholic liver disease in this patient. The patient also has an elevated lipase indicating a mild pancreatitis that could be causing his abdominal discomfort as well. EKG EKG read by me: Rate/Rhythm: Regular rate and rhythm at a rate of 82 Intervals: Normal [place]: Normal Impression: No evidence of ischemia or arrhythmia IMAGING CXR FINDINGS: The lungs are clear. The lung volumes are normal. The heart size is normal. The osseous structures are intact. IMPRESSION: No radiographic evidence for acute cardiopulmonary disease Electronically viewed and signed by .Kiersten Batista MD, on 01/10/2017 07:44 TREATMENT/DISPOSITION The patient appears to have significant liver disease with thrombocytopenia. He has had decreased oral intake recently, and he is hypokalemic. This will be repleted in the emergency department, but it will require admission to the hospital. The patient also has an elevated lipase. The patient has been getting IV fluids. It is not technically 3 times above the normal limit, but this could also be an etiology of his discomfort. This should be further evaluated in the hospital as well. The patient will be admitted to the panel service as per his insurance status. Dr. Claudio Frank accepted the patient at 9:43 AM on January 10, 2017 to Telemetry. Departure Diagnosis: Primary Impression: Hypokalemia Additional Impressions: Alcoholic intoxication Qualified Code: F10.929 - Alcoholic intoxication with complication Alcoholic liver damage Thrombocytopenia Elevated lipase Condition: Serious TIANNA SCOTT MD Jan 10, 2017 06:03 ([place] (5/325)) 1 tab Q6H PRN PO MODERATE PAIN LEVEL 4-6 01/10/17 10:30 Acetaminophen/ Hydrocodone Bitart ([place] (5/325)) 2 tab Q6H PRN PO SEVERE PAIN LEVEL 7-10 01/10/17 10:30 Docusate Sodium (Colace) 100 mg Q12H PRN PO CONSTIPATION 01/10/17 10:30 Magnesium Hydroxide (Milk Of Mag) 30 ml DAILY PRN PO CONSTIPATION 01/10/17 10:30 Bisacodyl (Dulcolax Supp) 10 mg DAILY PRN [place] CONSTIPATION 01/10/17 10:30 Pantoprazole (Protonix Iv) 40 mg DAILY@06 IV 01/11/17 06:00 Procedures/[facility] The patient's presentation warrants further investigation. He is describing symptoms that are concerning for a possible GI bleed. The patient's vital signs are stable and he does not appear anemic. The patient also endorses not eating over the last several days because of his nausea and vomiting. A metabolic abnormality is also possibility. The patient could also potentially have an alternative intra-abdominal pathology. LFTs will be completed. Renal function testing will be obtained. A lipase will also be obtained. LABS The patient's blood work was obtained and reviewed. The patient is leukopenic today. Upon review of old medical records, the patient is chronically leukopenic. The patient is afebrile, and I do not suspect a systemic infection. The patient is mildly anemic today. He is at his baseline. A rectal exam was completed. There was no flank bleeding, hematochezia or melena. It was fecal occult negative. Additionally, the patient's BUN is within normal limits. I have low suspicion for a GI bleed at this time. The patient is thrombocytopenic in the emergency department as well. This is a change from November.. The patient's CMP shows no signs of metabolic or electrolyte abnormality. The patient has normal renal and hepatic function testing. EKG EKG read by me: Rate/Rhythm: Regular rate and rhythm at a rate of 82 Intervals: Normal [place]: Normal Impression: No evidence of ischemia or arrhythmia IMAGING [] TREATMENT/DISPOSITION [] Departure Diagnosis: Primary Impression: Alcoholic intoxication Qualified Code: F10.929 - Alcoholic intoxication with complication Condition: TIANNA Mitchell MD Jan 10, 2017 06:03
[2017-01-10] MEDS ORDERED: SOD CHLORIDE 0.9% 1,000 ML IV STA (06:18)
[2017-01-10] MEDS ORDERED: ONDANSETRON 4 MG INJ IV STA (06:18)
[2017-01-10] MEDS ORDERED: PANTOPRAZOLE 40 MG INJ IV ONE (06:30)
[2017-01-10 07:17] LABS: ABNORMAL IP MESSAGE 1; HEMATOCRIT 36.7 % (42.0-52.0); HEMOGLOBIN 12.6 g/dl (14.0-18.0); MEAN CORPUSCULAR HEMOGLOBIN 28.1 pg (29.0-33.0); MEAN CORPUSCULAR HGB CONC 34.3 g/dl (32.0-37.0); MEAN CORPUSCULAR VOLUME 81.9 fl (82.0-101.0); MEAN PLATELET VOLUME 11.5 fl (7.4-10.4); POSITIVE DIFF @See below; RED BLOOD COUNT 4.48 10^6/ul (4.70-6.10); RED CELL DISTRIBUTION WIDTH 16.7 % (11.5-14.5); WHITE BLOOD COUNT 2.1 10^3/ul (4.8-10.8)
[2017-01-10 07:18] LABS: PLATELET COUNT 72 10^3/UL (140-415)
[2017-01-10 07:24] LABS: ADD UMIC YES; UR ASCORBIC ACID NEGATIVE (NEGATIVE); UR BILIRUBIN (Dip) NEGATIVE (NEGATIVE); UR BLOOD (Dip) NEGATIVE (NEGATIVE); UR CLARITY CLEAR (CLEAR); UR COLOR YELLOW (YELLOW); UR GLUCOSE (Dip) NEGATIVE (NEGATIVE); UR KETONES (Dip) TRACE mg/dL (NEGATIVE); UR LEUKOCYTE ESTERASE (Dip) NEGATIVE Leu/ul (NEGATIVE); UR NITRITE (Dip) NEGATIVE (NEGATIVE); UR RBC 0 /HPF (0-5); UR SPECIFIC GRAVITY (Dip) 1.008 (1.003-1.030); UR TOTAL PROTEIN (Dip) 1+ mg/dl (NEGATIVE); UR UROBILINOGEN (Dip) NEGATIVE (NEGATIVE)
--- NOTE | 2017-01-10 07:44 | RADRPT ---
PROCEDURE: XR Chest. CLINICAL INDICATION: Abdominal pain TECHNIQUE: AP view of the chest was performed. COMPARISON: None. FINDINGS: The lungs are clear. The lung volumes are normal. The heart size is normal. The osseous structure s are intact. IMPRESSION: No radiographic evidence for acute cardiopulmonary disease RPTAT: QQ .Kiersten Batista MD, Date Time Electronically viewed and signed by .Kiersten Batista MD, MD on 01/10/2017 07:44 .M/
[2017-01-10 07:58] LABS: ALBUMIN 4.8 g/dl (3.3-4.9); ALBUMIN/GLOBULIN RATIO 1.26; BILIRUBIN,INDIRECT 0.8 mg/dl (0-1.1); BILIRUBIN,TOTAL 0.8 mg/dl (0.2-1.3); CALCIUM 8.5 mg/dl (8.4-10.2); CREATININE 0.65 mg/dl (0.61-1.24); TOTAL PROTEIN 8.6 g/dl (6.1-8.1)
[2017-01-10 08:00] LABS: POTASSIUM 2.5 mmol/L (3.5-5.1)
[2017-01-10 08:14] LABS: ANISOCYTOSIS 1+ (0-0); BASOPHILS % (M) 1 % (0-2); EOSINOPHILS % (M) 1 % (0-7); GIANT THROMBO% (M) 2 % (0-0); MONOCYTES % (M) 16 % (0-11); PLATELET ESTIMATE DECREASED; POLYCHROMASIA 3+ (0-0); RBC MORPHOLOGY COMMENT @See below
[2017-01-10] MEDS ORDERED: POTASSIUM CHLORIDE (SR) 20 MEQ TAB PO STA (08:21)
[2017-01-10] MEDS: POTASSIUM CHLORIDE 50 ML IVPB SCH ×2 (08:50→09:47)
[2017-01-10 09:57] VITALS: TEMP 98.2
[2017-01-10] MEDS ORDERED: ONDANSETRON 4 MG INJ IV PRN ×3 (10:00→10:30)
[2017-01-10] MEDS ORDERED: ACETAMINOPHEN 325 MG TAB PO PRN ×3 (10:00→10:30)
[2017-01-10] MEDS ORDERED: NACL 0.9% 3 ML SYG IV SCH (10:30)
[2017-01-10] MEDS ORDERED: ACETAMINOPHEN 650 MG SUPP PR PRN (10:30)
[2017-01-10] MEDS ORDERED: MAGNESIUM HYDROXIDE 30ML CUP PO PRN (10:30)
[2017-01-10] MEDS ORDERED: BISACODYL 10 MG SUPP PR PRN (10:30)
[2017-01-10] MEDS ORDERED: DOCUSATE SODIUM 100 MG CAP PO PRN (10:30)
[2017-01-10 10:36] LABS: HAAIG REFLEX REFLEX FILED
[2017-01-10 10:51] LABS: IRON 72 ug/dl (35-150)
[2017-01-10 11:00] LABS: TOTAL IRON BINDING CAPACITY 380 ug/dl (241-421)
[2017-01-10 12:40] LABS: HEPATITIS B CORE ANTIBODY NEGATIVE (NEGATIVE)
[2017-01-10] MEDS: morphine 2 MG INJ IV PRN ×2 (12:44→18:22)
[2017-01-10] MEDS: SOD CHLORIDE 0.9% 1,000 ML IV SCH ×2 (12:46→20:55)
[2017-01-10 12:53] VITALS: Ht 162.6 cm; Wt 61.8 kg
--- NOTE | 2017-01-10 13:19 | CONS ---
Date/Time of Note Date/Time of Note DATE: 01/10/17 TIME: 13:14 Assessment/Plan Assessment/Plan Additional Assessment/Plan ASSESSMENT: Hematemesis Minimal anemia Abdominal pain/elevated lipase Alcohol induced pancreatitis Alcohol abuse Alcohol intoxication PLAN: Close observation PPI therapy Consider EGD if patient shows evidence of progressive anemia or further episodes of hematemesis REASON FOR CONSULTATION: Hematemesis Abdominal pain HISTORY OF PRESENT ILLNESS: 31-year-old male presents to the emergency room intoxicated complaining of abdominal pain and episode of hematemesis. The patient is also found to have elevated lipase. Patient admits heavy ethanol abuse, he is vague as to the length of time he has been drinking on the amounts that he consumes. REVIEW OF SYSTEMS: GASTROINTESTINAL AND LIVER: [Positive: Hematemesis, abdominal pain]. Negative for: Anorexia, dysphagia, odynophagia, pyrosis, regurgitation, nausea, vomiting, early satiety, bloating, food intolerance, diarrhea, constipation, change in Bowel Habits, laxative use, melena, hematochezia, anorectal symptoms, incontinence, jaundice. [The remainder of the ROS is covered in admitting note and when appropeiate by other consultants] PAST HISTORY: MEDICAL: Alcohol abuse SURGICAL: [None] TRANSFUSIONS: [None] TATOOS: [None] HABITS: SMOKING: [Negative] ALCOHOL: Positive DRUGS: [Negative] MEDICATION HISTORY: [As noted] ALLERGIES: [As noted] FAMILY HISTORY: [Negative for gastrointestinal neoplasm, non contributory] PHYSICAL EXAMINATION: GENERAL: Well developed, well nourished, alert & oriented x 3, in no acute distress SKIN: No lesions, no stigmata chronic liver disease, no evidence of bleeding diathesis LYMPHATIC: No palpable lymphadenopathy. HEAD: Normocephalic, atraumatic, no tenderness. EYES: Pupils equal reactive to light and accommodation, full extraocular movements, sclera clear, non-icteric, no discharge. EARS/NOSE AND THROAT: Ears normal, nose normal, oropharynx normal, oral membranes well hydrated without lesions. NECK: Supple, no masses, thyroid normal, JVP within normal limits, carotids normal without bruits. CHEST: Inspection within normal limits. CARDIOVASCULAR: Heart: Regular rate and rhythm, no murmurs, gallops or rubs. Peripheral pulses present within normal limits, no cyanosis, clubbing or edemas. No pulsatile abdominal mass RESPIRATORY: Lungs clear to auscultation and percussion, no wheezing, no rubs GASTROINTESTINAL AND LIVER: Abdomen: Soft, moderate epigastric tenderness, no distention, no hernias, no masses, no organomegaly, no ascites, no guarding, no rebound tenderness, normoactive bowel sounds. Rectal: Deferred GENITOURINARY: [Male genitalia within normal limits] EXTREMITIES: No cyanosis, clubbing or edema. MUSCULO-SKELETAL: Gait and station within normal limits, range of motion adequate. VIANCA Li's office Fax copy to Attn Medical Records Consultation Date/Type/Reason Admit Date/Time Jan 10, 2017 at 09:42 Social History Smoking Status: Never smoker Exam/Review of Systems Vital Signs Vitals Vital Signs Date Time Temp Pulse Resp B/P Pulse Ox O2 Delivery O2 Flow Rate FiO2 01/10/17 11:59 81 17 112/78 99 Room Air 01/10/17 09:57 98.2 Results Result Diagram: 01/10/17 0655 01/10/17 0655 Results 24 hrs Laboratory Tests Test 01/10/17 06:51 01/10/17 06:55 01/10/17 07:08 01/10/17 07:33 Urine Color YELLOW Urine Clarity CLEAR Urine pH 6.0 Urine Specific [place] 1.008 Urine Ketones TRACE A Urine Nitrite NEGATIVE Urine Bilirubin NEGATIVE Urine Urobilinogen NEGATIVE Urine Leukocyte Esterase NEGATIVE Urine Microscopic RBC 0 Urine Microscopic WBC 1 Urine Hemoglobin NEGATIVE Urine Glucose NEGATIVE Urine Total Protein 1+ H White Blood Count 2.1 L Red Blood Count 4.48 L Hemoglobin 12.6 L Hematocrit 36.7 L Mean Corpuscular Volume 81.9 L Mean Corpuscular Hemoglobin 28.1 L Mean Corpuscular Hemoglobin Concent 34.3 Red Cell Distribution Width 16.7 H Platelet Count 72 #L Mean Platelet Volume 11.5 H Neutrophils % Segmented Neutrophils % (Manual) 26 L Lymphocytes % Lymphocytes % (Manual) 56 H Monocytes % Monocytes % (Manual) 16 H Eosinophils % Eosinophils % (Manual) 1 Basophils % Basophils % (Manual) 1 Nucleated Red Blood Cells % 0.0 Neutrophils # Absolute Lymphocytes (Manual) 1.1 Lymphocytes # Monocytes # Absolute Monocytes (Manual) 0.3 Eosinophils # Basophils # Basophils # (Manual) 0.0 Nucleated Red Blood Cells # White Cell Morphology Comment @See below Platelet Estimate DECREASED Giant Platelets 2 H Polychromasia 3+ Anisocytosis 1+ Red Cell Morphology Comment @See below Sodium Level 139 Potassium Level 2.5 *L Chloride Level 91 L Carbon Dioxide Level 30 Anion Gap 21 H Blood Urea Nitrogen 14 Creatinine 0.65 Glucose Level 93 Calcium Level 8.5 Total Bilirubin 0.8 Direct Bilirubin 0.00 Indirect Bilirubin 0.8 Aspartate Amino Transf (AST/SGOT) 215 H Alanine Aminotransferase (ALT/SGPT) 89 H Alkaline Phosphatase 92 Total Protein 8.6 H Albumin 4.8 Globulin 3.80 H Albumin/Globulin Ratio 1.26 Lipase 404 H Stool Occult Blood NEGATIVE Iron Level 72 Total Iron Binding Capacity 380 Percent Iron Saturation 19 L Hepatitis B Surface Antigen NEGATIVE Hepatitis B Core Total Antibody NEGATIVE Hepatitis C Antibody NEGATIVE Medications Medications Current Medications Sodium Chloride 1,000 ml @ 80 mls/hr [id number] IV Last administered on t 12:46; Admin Dose 80 MLS/HR; Start 01/10/17 at 09:42; Stop 01/10/17 at 22: 11 Multivitamins/ Thiamine HCl/ Folic Acid/Sodium Chloride (Mvi Adult/ Vitamin B1/ Folic Acid/NS) 1,011.2 ml @ 125 mls/ hr DAILY@09 IVPB ; Start 01/11/17 at 09:00 Ondansetron HCl (Zofran Inj) 4 mg Q6H PRN IV NAUSEA AND/OR VOMITING; Start 01/10/17 at 10:30 Acetaminophen (Tylenol Tab) 650 mg Q6H PRN PO PAIN LEVEL 1-3 OR FEVER; Start 01/10/17 at 10:30 Acetaminophen (Tylenol Supp) 650 mg Q6H PRN [place] PAIN LEVEL 1-3 OR FEVER; Start 01/10/17 at 10:30 Acetaminophen/ Hydrocodone Bitart ([place] (5/325)) 1 tab Q6H PRN PO MODERATE PAIN LEVEL 4-6; Start 01/10/17 at 10:30 Acetaminophen/ Hydrocodone Bitart ([place] (5/325)) 2 tab Q6H PRN PO SEVERE PAIN LEVEL 7-10; Start 01/10/17 at 10:30 Docusate Sodium (Colace) 100 mg Q12H PRN PO CONSTIPATION; Start 01/10/17 at 10: 30 Magnesium Hydroxide (Milk Of Mag) 30 ml DAILY PRN PO CONSTIPATION; Start at 10:30 Bisacodyl (Dulcolax Supp) 10 mg DAILY PRN [place] CONSTIPATION; Start 01/10/17 at 10 :30 Pantoprazole (Protonix Iv) 40 mg DAILY@06 IV ; Start 01/11/17 at 06:00 Morphine Sulfate (morphine) 2 mg Q4H PRN IV PAIN LEVEL 7-10 Last administered on 01/10/17t 12:44; Admin Dose 2 MG; Start 01/10/17 at 12:30 VIANCA LI MD Jan 10, 2017 13:19
[2017-01-10 14:20] LABS: HEMATOCRIT 34.3 % (42.0-52.0); HEMOGLOBIN 11.8 g/dl (14.0-18.0)
--- NOTE | 2017-01-10 14:55 | HP ---
Date/Time of Note Date/Time of Note DATE: 01/10/17 TIME: 14:49 Assessment/Plan VTE Prophylaxis VTE Prophylaxis Intervention: SCD's Assessment/Plan Chief Complaint/Hosp Course Impression and plan 1. GI bleed with hematemesis and hematochezia secondary to alcohol abuse. Monitor serial H&H. Service Station Console Operator was consulted. Tentative plan for EGD/ colonoscopy. Will transfuse blood products as needed. Follow-up on iron panel. 2. Alcohol abuse. Cessation advised. Will get a social service agency director to follow. 3. Hypokalemia. Will replete and check level in a.m. 4. Normocytic anemia likely secondary to liver dysfunction. Will monitor trend. Alcohol cessation advised. 5. Transaminitis. Likely secondary to alcohol abuse. Will follow up on hepatitis panel. Will check abdominal imaging. 6. Pancreatitis likely secondary to alcohol abuse. Noted with elevated lipase levels. Monitor trend. Keep n.p.o. for now. Continue with aggressive IV hydration. Admission process >40 minutes Discussed plan of care with Dr. Leonardo Problems: HPI/ROS Admit Date/Time Admit Date/Time Jan 10, 2017 at 09:42 Hx of Present Illness This is a 31-year-old male with extensive history of alcohol abuse and gastritis who [place] [facility] [place] of [place]emesis and hematochezia. Patient reportedly was drinking heavy amounts of alcohol for 8 days straight roughly 2 bottles per day. He reports drinking tequila. He reports that roughly 5 days ago he had been having hematemesis and hematochezia intermittently. That is when he stopped drinking alcohol reportedly. [place] [facility] [place]. Upon further examination he was noted to have some anemia with hemoglobin of 12.6 and 36.7 microcytic hypochromic. He additionally was seen with thrombocytopenia likely secondary to his alcohol abuse and suspected liver dysfunction. He also was seen with electrode imbalance with potassium of 2.5. He was also seen with transaminitis likely secondary to his liver dysfunction from alcohol abuse. He remained afebrile. Vital signs otherwise appeared normal. He currently remains alert and oriented and reports having moderate abdominal pain. He is seen with elevated lipase with clinical picture of pancreatitis. We will evaluate him for the aformentiond issues. ROS 12 point review of systems obtained and entirely negative except that mentioned in history of present illness PMH/Family/Social Past Medical History Medical/surgical history 1. Gastritis 2. Alcohol abuse Social History Alcohol Use: heavy Smoking Status: Never smoker Drug Use: none Exam/Review of Systems Vital Signs Vitals Vital Signs Date Time Temp Pulse Resp B/P Pulse Ox O2 Delivery O2 Flow Rate FiO2 01/10/17 11:59 81 17 112/78 99 Room Air 01/10/17 09:57 98.2 Exam Constitutional: alert, oriented Psych: nl mood/affect Head: normocephalic Neck: supple Respiratory: clear to auscultation, normal air movement Cardiovascular: nl pulses, regular rate and rhythm Gastrointestinal: soft, tender Musculoskeletal: nl extremities to inspection, nl gait and stance Neurological: SHIELD OPERATOR II-XII intact, nl mental status, nl speech Skin: nl turgor Labs Result Diagram: 01/10/17 1330 01/10/17 0655 Medications Medications Current Medications Sodium Chloride 1,000 ml @ 80 mls/hr [id number] IV Last administered on t 12:46; Admin Dose 80 MLS/HR; Start 01/10/17 at 09:42; Stop 01/10/17 at 22: 11 Multivitamins/ Thiamine HCl/ Folic Acid/Sodium Chloride (Mvi Adult/ Vitamin B1/ Folic Acid/NS) 1,011.2 ml @ 125 mls/ hr DAILY@09 IVPB ; Start 01/11/17 at 09:00 Ondansetron HCl (Zofran Inj) 4 mg Q6H PRN IV NAUSEA AND/OR VOMITING; Start 01/10/17 at 10:30 Acetaminophen (Tylenol Tab) 650 mg Q6H PRN PO PAIN LEVEL 1-3 OR FEVER; Start 01/10/17 at 10:30 Acetaminophen (Tylenol Supp) 650 mg Q6H PRN [place] PAIN LEVEL 1-3 OR FEVER; Start 01/10/17 at 10:30 Acetaminophen/ Hydrocodone Bitart ([place] (5/325)) 1 tab Q6H PRN PO MODERATE PAIN LEVEL 4-6; Start 01/10/17 at 10:30 Acetaminophen/ Hydrocodone Bitart ([place] (5/325)) 2 tab Q6H PRN PO SEVERE PAIN LEVEL 7-10; Start 01/10/17 at 10:30 Docusate Sodium (Colace) 100 mg Q12H PRN PO CONSTIPATION; Start 01/10/17 at 10: 30 Magnesium Hydroxide (Milk Of Mag) 30 ml DAILY PRN PO CONSTIPATION; Start at 10:30 Bisacodyl (Dulcolax Supp) 10 mg DAILY PRN [place] CONSTIPATION; Start 01/10/17 at 10 :30 Pantoprazole (Protonix Iv) 40 mg DAILY@06 IV ; Start 01/11/17 at 06:00 Morphine Sulfate (morphine) 2 mg Q4H PRN IV PAIN LEVEL 7-10 Last administered on 01/10/17t 12:44; Admin Dose 2 MG; Start 01/10/17 at 12:30 Influenza Virus Vaccine (Fluzone) 0.5 ml ONCE ONCE IM* ; Start 01/11/17 at 10:00 ; Stop 01/11/17 at 10:01 STEVEN COLÓN Jan 10, 2017 14:55
[2017-01-10] MEDS ORDERED: LORAZEPAM 2 MG INJ IV PRN (15:00)
[2017-01-10 15:26] VITALS: BP 112/67; RESP 18
[2017-01-10] MEDS ORDERED: MAGNESIUM SULFATE 1 GM/D5W 100 ML IVPB ONE (17:00)
--- NOTE | 2017-01-10 17:15 | RADRPT ---
PROCEDURE: CT Abdomen and Pelvis without contrast. CLINICAL INDICATION: Abdominal and pelvic pain. TECHNIQUE: CT scan of the abdomen and pelvis without contrast was performed. Coronal and sagittal reformatted images were obtained from the axial source images. Images were reviewed on a high-resolu Blackwave PACS workstation. Total exam DLP is 457.31 mGy-cm. CTDIvol is 7.65 mGy. One or more of the fo [facility] dose reduction techniques were used: Automated exposure control, adjustment of the mA and/or kV according to patient size, use of iterative reconstruction technique. COMPARISON: CT scan of the abdomen and pelvis dated 11/23/2016. FINDINGS: The lung bases are normal. There is no pleural effusion. The liver is normal in size and markedly diffusely decreased attenuation consistent with fatty metam orphosis, unchanged from the prior study. There is no focal hepatic lesion. The gallbladder and bile ducts are normal. The spleen is normal in size. There is no focal splenic lesion. Both adrenals are normal with no enlargement or mass. The pancreas is unremarkable with no mass or evidence of pancreatitis. There is no renal mass or hydronephrosis. There is no renal calculus or ureteral calculus. The abdominal aorta is not dilated. There is no retroperitoneal lymphadenopathy or mass. There is no pelvic lymphadenopathy or mass. The bladder and distal ureters are normal. The appendix is well seen and appears normal. There is diverticulosis of the sigmoid colon without evidence of diverticulitis. The bowel and mesen david are otherwise normal. There is no free fluid or free gas. The osseous structures are unremarkable with no fracture or lytic lesion. IMPRESSION: 1. Fatty metamorphosis of the liver. 2. Normal appendix. 3. No urinary tract calculus or hydronephrosis. 4. Diverticulosis of the sigmoid colon. No evidence of diverticulitis. 5. Otherwise unremarkable noncontrast CT scan of the abdomen and pelvis. RPTAT: QQ .Lamonte Goel MD, MD Date Time Electronically viewed and signed by .Lamonte Goel MD, on 01/10/2017 17:15 .R/
[2017-01-10 19:05] LABS: HEMATOCRIT 33.1 % (42.0-52.0); HEMOGLOBIN 11.2 g/dl (14.0-18.0)
[2017-01-10 20:00] VITALS: BP 113/61; RESP 19
[2017-01-10 20:03] VITALS: PULSE 90
[2017-01-10] MEDS: CHLORDIAZEPOXIDE 25 MG CAP PO SCH (20:55)
[2017-01-11] VITALS (13 sets, daily range): BP systolic 117–157; BP diastolic 62–92; PULSE 56–79; RESP 17–20
[2017-01-11] MEDS: morphine 2 MG INJ IV PRN ×4 (00:01→23:20)
[2017-01-11 01:30] LABS: HEMOGLOBIN 10.9 g/dl (14.0-18.0)
[2017-01-11] MEDS: SOD CHLORIDE 0.9% 1,000 ML IV SCH ×3 (03:35→20:45)
[2017-01-11] MEDS: PANTOPRAZOLE 40 MG INJ IV SCH (05:56)
[2017-01-11 07:24] LABS: ABNORMAL IP MESSAGE 1; HEMATOCRIT 30.8 % (42.0-52.0); HEMOGLOBIN 10.2 g/dl (14.0-18.0); MEAN CORPUSCULAR HEMOGLOBIN 28.1 pg (29.0-33.0); MEAN CORPUSCULAR HGB CONC 33.1 g/dl (32.0-37.0); MEAN CORPUSCULAR VOLUME 84.8 fl (82.0-101.0); MEAN PLATELET VOLUME 11.8 fl (7.4-10.4); PLATELET COUNT 63 10^3/UL (140-415); POSITIVE DIFF @See below; RED BLOOD COUNT 3.63 10^6/ul (4.70-6.10); RED CELL DISTRIBUTION WIDTH 16.7 % (11.5-14.5); WHITE BLOOD COUNT 1.6 10^3/ul (4.8-10.8)
[2017-01-11 07:51] LABS: ALBUMIN 3.4 g/dl (3.3-4.9); ALBUMIN/GLOBULIN RATIO 1.17; BILIRUBIN,INDIRECT 0.9 mg/dl (0-1.1); BILIRUBIN,TOTAL 0.9 mg/dl (0.2-1.3); CALCIUM 7.1 mg/dl (8.4-10.2); CHOL/HDL RATIO 1.9 RATIO; CREATININE 0.57 mg/dl (0.61-1.24); MAGNESIUM 1.2 mg/dl (1.7-2.5); PHOSPHORUS 3.4 mg/dl (2.5-4.9); POTASSIUM 3.4 mmol/L (3.5-5.1); TOTAL PROTEIN 6.3 g/dl (6.1-8.1)
[2017-01-11 08:02] LABS: T3 UPTAKE 40.7 % (23.5-40.5)
[2017-01-11] MEDS: CHLORDIAZEPOXIDE 25 MG CAP PO SCH ×2 (08:14→20:44)
[2017-01-11 08:16] LABS: THYROID STIMULATING HORMONE 0.444 MIU/L (0.465-4.680)
[2017-01-11 08:53] LABS: BASOPHILS % (M) 5 % (0-2); EOSINOPHILS % (M) 6 % (0-7); ERYTHROBLAST% (NRBC) (M) 1 % (0-0); GIANT THROMBO% (M) 4 % (0-0); MONOCYTES % (M) 7 % (0-11); PLATELET ESTIMATE DECREASED; POIKILOCYTOSIS 2+ (0-0); POLYCHROMASIA 1+ (0-0); REACTIVE LYMPHOCYTES% (M) 1 % (0-0)
[2017-01-11] MEDS: MULTIVITAMINS 10 ML, THIAMINE 100 MG, FOLIC ACID 1 MG in SOD CHLORIDE 0.9% 1,000 ML IVPB SCH (09:39)
[2017-01-11] MEDS ORDERED: INFLUENZA VIRUS VACCINE 0.5 ML (DISPENSING) IM* ONE (10:00)
[2017-01-11] MEDS ORDERED: POTASSIUM CHLORIDE 30 MEQ in DEXTROSE 5% 250 ML IVPB SCH (11:30)
[2017-01-11] MEDS ORDERED: MAGNESIUM SULFATE 3 GM in SOD CHLORIDE 0.9% 100 ML IVPB SCH (11:30)
[2017-01-11 12:55] LABS: HEMATOCRIT 30.1 % (42.0-52.0); HEMOGLOBIN 10.4 g/dl (14.0-18.0)
[2017-01-11] MEDS ORDERED: PROPOFOL 40 ML ONE (16:38)
[2017-01-11] MEDS ORDERED: LIDOCAINE 2% (SDV) 5 ML INJ ONE (16:38)
--- NOTE | 2017-01-11 16:45 | HPN ---
Date/Time of Note Date/Time of Note DATE: 01/11/17 TIME: 16:45 Interval H&P Admission Note Pt. seen H&P reviewed: No system changes VIANCA MENJIVAR MD Jan 11, 2017 16:45
--- NOTE | 2017-01-11 17:01 | OPPN ---
Date/Time of Note Date/Time of Note DATE: 01/11/17 TIME: 16:55 Proc Note GI Procedure Date 01/11/17 Pre-procedure Diagnosis * Hematemesis Post-procedure Diagnosis Impression: * Erosive esophagitis * Moderate gastritis. * Small antral nodularity. Biopsied * Antral pseudodiverticulum Plan: * PPI therapy * Review pathology * Advance diet * ABSTINENCE . Procedure Performed: Endoscopy (+ biopsies) Surgeon VIANCA MENJIVAR MD Slope Hoist Operator none Anesthesia Type: MAC Anesthesiologist: EARLINE SAAVEDRA Tourniquet Time none EBL none Transfusion required none Biopsy 1: ANTRUM Grafts/Implants none Tubes/Drains none Complication(s) none Pt Condition post procedure: stable Disposition: PACU Indications: other (Hematemesis) Procedure Description Preoperative Diagnosis: After informed consent, with the patient/relatives understanding the procedure, its indications, potential risks and complications, including but not limited to : allergic reaction, bleeding, perforation or infection, and after all pertinent questions were answered to the patients satisfaction, the patient/ relatives signed witnessed informed consent. Following this, premedication was administered slowly IV push under careful cardiovascular and respiratory monitoring with pulse oximetry, automatic blood pressure, and patient monitor. Once the sedative effect was achieved the patient was place in the left lateral decubitus, the panendoscope was introduced and advanced under visual control. Careful examination of the upper gastrointestinal tract, both on insertion as well as withdrawal of the instrument disclosing the following findings: ESOPHAGUS: the mucosa of the entire esophagus was carefully examined and showed the following findings: There is erythema, edema and erosions. Otherwise the mucosa appears within normal limits. There is no evidence of varices, neoplasm, or stricture. No Hiatal Hernia identified. STOMACH: Upon entrance to the stomach air was insufflated, the gastric greene distended normally. The mucosa of the fundus, body and antrum of the stomach was carefully examined both head-on and on retroflexion, and showed the following findings: There is erythema and edema of the mucosa of the body and antrum the stomach. In the antrum there is an area of nodularity measuring approximately 12 mm. Biopsies were obtained. There is also what appears to be a pseudodiverticulum of no clinical significance. Otherwise the mucosa appears within normal limits with no abnormalities. There is no evidence of ulcers or neoplasm. PYLORUS: The pylorus was carefully examined and showed the following findings: []the pylorus appears patent and within normal limits, with no evidence of gastric outlet obstruction. DUODENUM: The duodenal mucosa was carefully examined in the duodenal bulb as well as the second portion of the duodenum and showed the following findings: []the mucosa appears unremarkable with no evidence of duodenitis, ulcer or neoplasm. Copies To: CC: VIANCA MENJIVAR MD, MORDO MD Jan 11, 2017 17:01
[2017-01-11] MEDS ORDERED: ATROPINE 1 MG/10 ML SYRINGE ONE (17:33)
--- NOTE | 2017-01-11 17:48 | PN ---
Date/Time of Note Date/Time of Note DATE: 01/11/17 TIME: 17:47 Assessment/Plan VTE Prophylaxis VTE Prophylaxis Intervention: SCD's Lines/Catheters IV [facility]from [facility] Peripheral IV Urinary Cath still in place: No Assessment/Plan Chief Complaint/Hosp Course 1. Hematemesis. Status post esophagogastroduodenoscopy that showed erosive esophagitis and moderate gastritis. Continue proton pump inhibitors. Stable H& H. 2. Alcohol abuse. Cessation advised. Continue tapering dose of Librium. Continue multivitamins. 3. Pancytopenia. Etiology unclear. Probably from alcohol abuse. Will obtain hematology evaluation. 4. Fluids, electrolytes, and nutrition. To to be resumed on a diet as per gastroenterology. 5. DVT prophylaxis. Bilateral sequential compression devices. 6. Plan. Continue PPI. Monitor H&H closely. Obtain hematology consult. Case discussed with . Problems: Subjective 24 Hr Interval Summary Free Text/Dictation Complains of abdominal pain. No more hematemesis. Exam/Review of Systems Vital Signs Vitals Vital Signs Date Time Temp Pulse Resp B/P Pulse Ox O2 Delivery O2 Flow Rate FiO2 01/11/17 16:13 56 01/11/17 15:46 98.4 20 139/85 96 01/10/17 11:59 Room Air Intake and Output 01/10/17 01/10/17 01/11/17 15:00 23:00 07:00 Intake Total 400 ml 3100 ml Output Total 0 ml Balance 400 ml 3100 ml Exam General: Adequately build 31 year-old male lying in bed in no apparent distress. HEENT: Normocephalic, atraumatic. Eyes: Anicteric sclerae, conjunctivae clear. ENT: Nasal septum midline, oral mucosa moist. Neck supple, no JVD noticed. Respiratory: Bilaterally clear breath sounds. No use of accessory muscles of respiration. No adventitious breath sounds. Cardiovascular: S1, S2 heard. No murmurs or gallops. Abdomen: Soft and nondistended. Bowel sounds positive in all 4 quadrants. Genitourinary: Deferred. Extremities: No cyanosis, no clubbing, no edema. Peripheral pulses palpable. Neurologic: Cranial nerves II through XII grossly intact. The patient is awake, alert, and oriented. Skin: Normal skin turgor. No skin rashes. Results Result Diagram: 01/11/17 1241 01/11/17 0648 Results 24 hrs Laboratory Tests Test 01/10/17 18:49 01/11/17 00:47 01/11/17 06:43 01/11/17 06:46 Hemoglobin 11.2 L 10.9 L 10.2 L Hematocrit 33.1 L 32.0 L 30.8 L White Blood Count 1.6 #L Red Blood Count 3.63 L Mean Corpuscular Volume 84.8 Mean Corpuscular Hemoglobin 28.1 L Mean Corpuscular Hemoglobin Concent 33.1 Red Cell Distribution Width 16.7 H Platelet Count 63 L Mean Platelet Volume 11.8 H Neutrophils % Segmented Neutrophils % (Manual) 42 Band Neutrophils % (Manual) 7 H Lymphocytes % Lymphocytes % (Manual) 33 Reactive Lymphocytes % (Manual) 1 H Monocytes % Monocytes % (Manual) 7 Eosinophils % Eosinophils % (Manual) 6 Basophils % Basophils % (Manual) 5 H Nucleated Red Blood Cells % 1 H Neutrophils # Neutrophils # (Manual) 0.7 L Band Neutrophils # 0.1 Absolute Lymphocytes (Manual) 0.5 L Lymphocytes # Reactive Lymphocytes # 0.0 Monocytes # Absolute Monocytes (Manual) 0.1 L Eosinophils # Basophils # Basophils # (Manual) 0.0 Nucleated Red Blood Cells # Platelet Estimate DECREASED Giant Platelets 4 H Polychromasia 1+ Poikilocytosis 2+ Hemoglobin A1c 5.5 Magnesium Level 1.2 L Lipase 439 H Test 01/11/17 06:48 01/11/17 08:54 01/11/17 12:41 Sodium Level 133 L Potassium Level 3.4 L Chloride Level 96 L Carbon Dioxide Level 24 Anion Gap 16 Blood Urea Nitrogen 7 Creatinine 0.57 L Glucose Level 64 #L Calcium Level 7.1 L Phosphorus Level 3.4 Magnesium Level 1.2 L Total Bilirubin 0.9 Direct Bilirubin 0.00 Indirect Bilirubin 0.9 Aspartate Amino Transf (AST/SGOT) 234 H Alanine Aminotransferase (ALT/SGPT) 93 H Alkaline Phosphatase 62 Total Protein 6.3 # Albumin 3.4 # Globulin 2.90 Albumin/Globulin Ratio 1.17 Triglycerides Level 72 Cholesterol Level 190 LDL Cholesterol, Calculated 78 HDL Cholesterol 98 H Cholesterol/HDL Ratio 1.9 Thyroid Stimulating Hormone (TSH) 0.444 L Free Thyroxine Index 3.01 Thyroxine (T4) 7.4 Triiodothyronine (T3) Uptake 40.7 H Bedside Glucose 94 Hemoglobin 10.4 L Hematocrit 30.1 L Medications Medications Current Medications Sodium Chloride 1,000 ml @ 125 mls/hr Q8H IV Last administered on 01/11/17 03 :35; Admin Dose 125 MLS/HR; Start 01/10/17 at 09:42 Multivitamins/ Thiamine HCl/ Folic Acid/Sodium Chloride (Mvi Adult/ Vitamin B1/ Folic Acid/NS) 1,011.2 ml @ 125 mls/ hr DAILY@09 IVPB Last administered on 09:39; Admin Dose 125 MLS/HR; Start 01/11/17 at 09:00 Ondansetron HCl (Zofran Inj) 4 mg Q6H PRN IV NAUSEA AND/OR VOMITING; Start 01/10/17 at 10:30 Acetaminophen (Tylenol Tab) 650 mg Q6H PRN PO PAIN LEVEL 1-3 OR FEVER; Start 01/10/17 at 10:30 Acetaminophen (Tylenol Supp) 650 mg Q6H PRN [place] PAIN LEVEL 1-3 OR FEVER; Start 01/10/17 at 10:30 Acetaminophen/ Hydrocodone Bitart ([place] (5/325)) 1 tab Q6H PRN PO MODERATE PAIN LEVEL 4-6; Start 01/10/17 at 10:30 Acetaminophen/ Hydrocodone Bitart ([place] (5/325)) 2 tab Q6H PRN PO SEVERE PAIN LEVEL 7-10; Start 01/10/17 at 10:30 Docusate Sodium (Colace) 100 mg Q12H PRN PO CONSTIPATION; Start 01/10/17 at 10: 30 Magnesium Hydroxide (Milk Of Mag) 30 ml DAILY PRN PO CONSTIPATION; Start at 10:30 Bisacodyl (Dulcolax Supp) 10 mg DAILY PRN [place] CONSTIPATION; Start 01/10/17 at 10 :30 Pantoprazole (Protonix Iv) 40 mg DAILY@06 IV Last administered on 01/11/17 05: 56; Admin Dose 40 MG; Start 01/11/17 at 06:00 Morphine Sulfate (morphine) 2 mg Q4H PRN IV PAIN LEVEL 7-10 Last administered on 01/11/17 12:02; Admin Dose 2 MG; Start 01/10/17 at 12:30 Chlordiazepoxide (Librium) 25 mg BID PO Last administered on 01/11/17 08:14; Admin Dose 25 MG; Start 01/10/17 at 21:00 Lorazepam (Ativan) 1 mg Q2H PRN IV DT; Start 01/10/17 at 15:00 MIRTHA SWAN NP Jan 11, 2017 17:48
[2017-01-11 19:30] LABS: HEMATOCRIT 33.3 % (42.0-52.0); HEMOGLOBIN 11.4 g/dl (14.0-18.0)
[2017-01-11] MEDS: SOD FERRIC GLUC COMPLX 125 MG in SOD CHLORIDE 0.9% 100 ML IVPB SCH (20:44)
--- NOTE | 2017-01-11 20:54 | CONS ---
DATE OF ADMISSION: 01/10/2017 DATE OF CONSULTATION: 01/11/2017 REQUESTING PROVIDER: Houston Hernandez NP REASON FOR CONSULTATION: Pancytopenia. HISTORY OF PRESENT ILLNESS/HOSPITAL COURSE: Thank you very much for asking me see this very pleasant gentleman in Hematologic consultation. As you know, Mr. Borrego is a 31-year-old male, who was admitted to [facility] on 01/10/2017. The patient presented to the emergency room at that time with complaints of diffuse abdominal pain, nausea and vomiting, with hematemesis, melena, and hematochezia. The patient does admit that he had been consuming alcohol heavily for at least 7 days. The patient states he stopped approximately 4 days ago. It is at that time that the patient had the experience of GI symptoms noted above. The patient, as noted, states that he was experiencing hematemesis and also had melanotic stools. On admission, the patient had a white count of 2100, with 26 percent neutrophils and 56 percent lymphocytes. Red blood cell count was 4.48 million, hemoglobin 12.6, hematocrit 36.7, MCV 81.9, MCH 28.1, MCHC 34.3, RDW 16.7, platelet count 72,000, MPV was 11.5. Also on admission, patient's sodium was 139, potassium 2.5, BUN 14, creatinine 0.65. Total bilirubin 0.8, with a direct bilirubin of 0.8, AST 215, ALT 89, alkaline phosphatase 92, total protein 8.9, albumin 4.8. Lipase was 402. Today, the patient's white count is 1600, with 42 percent segs, 7 bands. There were 33 percent lymphocytes. Hemoglobin is 10.2, hematocrit 30.8, MCV 84.8, MCH 28.1, MCHC 33.1, RDW 16.8, platelet count 63, and MPV 11.8. Sodium is now 133, potassium 3.4, creatinine 0.57, BUN 7. Total bilirubin 0.9 direct, indirect bilirubin 0.9, AST 234, ALT 93, alkaline phosphatase 62, lipase still 439. Iron studies reveal a serum iron of 72, iron binding capacity 380, percent saturation of 19 percent. One stool for occult blood is reported as being negative. Serologies for hepatitis B surface antigen and core antibody, as well as hepatitis C antibody are negative. The patient was seen in consultation by Dr. Li. An EGD was performed on 01/11/2017. There was erythema, edema and erosions of the esophagus. There were no esophageal varices noted. There was no evidence of any Tasha-Lopez tear. The stomach again showed erythema and edema of the mucosa and body in the antrum. There was some area of nodularity noted, and there were biopsies obtained from this area. There was no evidence of ulcers or neoplasm. The pylorus appeared normal, as did the duodenum. Other studies have included a chest x-ray, which showed no cardiopulmonary disease. A CT scan of the abdomen and pelvis was done without contrast. This showed fatty changes of the liver. It is stated that the liver is of normal size. The spleen is also said to be of normal size. There was no retroperitoneal lymphadenopathy, no pelvic lymphadenopathy, no mesenteric lymphadenopathy. As noted, the patient does admit to heavy alcohol consumption up to 4 days prior to admission. He states he had only been drinking for 7 days prior to that, but does have a history of multiple visits to the emergency room for alcohol-induced complaints of abdominal pain. Review of the patient's old records revealed that on April 28 of this year, the patient's white count was 2600, hemoglobin 13.8, hematocrit 40.4, MCV 83.5, and platelet count 142,000. On 09/23/2016, the white count was 3400, hemoglobin 12.6, hematocrit 38, platelet count 237,000. On 11/23/2016, the patient's white count was 2400, hemoglobin 13.4, and platelet count 143,000. PAST MEDICAL HISTORY: Patient denies any previous medical problems. Denies history of hypertension, heart disease, diabetes, renal or hepatic disease. He states he has had no prior surgeries. MEDICATION: Patient denies any medication prior to admission. ALLERGIES: HE STATES HE HAS NO KNOWN ALLERGIES. SOCIAL HISTORY: Patient is unmarried. He works in "[employer] He has not knowingly been exposed to industrial toxins or ionizing radiation. He admits to heavy alcohol use but cannot be very specific. He denies smoking cigarettes or other tobacco use. Denies drug use. PHYSICAL EXAMINATION: GENERAL APPEARANCE: At this time reveals a well-developed, tremulous male, who is in no acute distress. VITAL SIGNS: Temperature 98.4, pulse 65 per minute and regular, respirations 20, blood pressure 139/85, pulse oximetry 96 percent on room air. SKIN: No ecchymosis, no petechiae or rashes. There are no spider telangiectasias. HEENT: Normocephalic. No evidence of trauma. The pupils are equal, round, reactive to light and accommodation. Sclerae are nonicteric. Oral mucosa is moist, without lesions. Tongue is well papillated. There is no gingival hyperplasia. No hypertrophy of Waldeyer's ring. NECK: Supple. No jugular venous distention or thyroid enlargement. No carotid bruits. CHEST: Clear to auscultation and percussion. No rhonchi, wheezes, rales, or rubs. There is no pain on percussion of spine, sternum, clavicles or ribs. BREASTS: No gynecomastia. HEART: Regular sinus rhythm. No S3's, S4's, or murmurs. No rubs. ABDOMEN: Diffusely tender. This includes both the right and left upper quadrant. The patient is guarding. There is no rebound tenderness. There is no obvious ascites. Bowel sounds are active. There are no hernia defects. EXTREMITIES: Good range of motion. No clubbing, edema or cyanosis. No palpable cords or Homans sign. NEUROLOGIC: Does not reveal any focal neurologic abnormalities. The patient, however, is markedly tremulous and hyper-reflexic. There is no asterixis. LABORATORY: The peripheral smear has been reviewed. Red blood cell morphology is relatively normal. There is some mild hypochromasia. The white blood cells are decreased in number. There is a significant neutropenia. There are no immature white cells, no nucleated red blood cells, no hypersegmented polys. There is no toxic granulation noted, no vacuolization of the cytoplasm, and no Dohle bodies. Lymphocytes appear normal in morphology. The platelets are moderately decreased, with large platelet form seen. DISCUSSION: This patient is obviously suffering from alcohol withdrawal. He is very tremulous, and I am concerned in fact that he may develop delirium tremens in the near future. The patient has pancytopenia, which I feel is likely on the basis of acute alcohol toxicity causing bone marrow suppression. The patient has had a chronic neutropenia since at least April of this year, suggesting that he may already be developing some splenomegaly, although this is not noted on today's CT scan. I cannot palpate any hepatomegaly or splenomegaly. Of interest is the fact that the patient's MCV at this time is only 84. Given the evidence of liver disease, one would expect the patient to have a macrocytosis. I feel that these changes are explained by the patient's iron deficiency. The fact that the patient is iron deficient suggests some chronicity to gastrointestinal blood loss. In April of this year, his MCV was only 83.7. Although I do feel it is very likely that most of the patient's hematologic abnormalities are alcohol-induced, we will also check a B12 and folic acid level at this time. Other studies will include a serum protein electrophoresis and immunofixation. We will also obtain an MARGRET. Coagulation studies have not been obtained. Will obtain a prothrombin time, PTT, and a fibrinogen. As noted, the patient is iron deficient. Based on his weight of 61 kg and hemoglobin of 10, the patient will require approximately 1400 mg of elemental iron in order to replete his iron stores. It is unclear that the patient would be able to tolerate this orally. We will start the patient on parental iron replacement at this time. As noted, I cannot palpate the spleen, and although the patient's pancytopenia is likely due to alcohol to acute toxicity, I will request an ultrasound of the spleen, as this is the "gold standard" for estimating spleen size. Once again, thank you very much for the opportunity of participating in the medical care of this very pleasant gentleman. I will be happy to follow this patient with you and assist in his hematologic evaluation and followup as necessary. Dictated By: Gerardo Prater MD /isabel/pauline /Document#: [id number]
--- NOTE | 2017-01-11 22:17 | RADRPT ---
PROCEDURE: US Abdomen (spleen). CLINICAL INDICATION: Pancytopenia. TECHNIQUE: Multiple real-time longitudinal and transverse images of the spleen were acquired utili zing a curved array transducer. Images were reviewed on a high-resolution PACS workstation. COMPARISON: None FINDINGS: The spleen is normal in size measuring 10.4 x 3.7 x 4.7 cm. There is no splenic mass. There is no adjacent fluid collection or mass. IMPRESSION: 1. Normal limited ultrasound of the spleen. RPTAT: QQ .Lamonte Goel MD, MD Date Time Electronically viewed and signed by .Lamonte Goel MD, on 01/11/2017 22:17 .R/
[2017-01-12] VITALS (12 sets, daily range): BP systolic 107–143; BP diastolic 73–92; PULSE 63–70; RESP 18–20
[2017-01-12] MEDS: SOD CHLORIDE 0.9% 1,000 ML IV SCH ×3 (05:00→18:26)
[2017-01-12] MEDS: morphine 2 MG INJ IV PRN ×4 (05:11→21:40)
[2017-01-12] MEDS: PANTOPRAZOLE 40 MG INJ IV SCH (05:11)
[2017-01-12] MEDS: CHLORDIAZEPOXIDE 25 MG CAP PO SCH ×2 (09:07→20:28)
[2017-01-12] MEDS: MULTIVITAMINS 10 ML, THIAMINE 100 MG, FOLIC ACID 1 MG in SOD CHLORIDE 0.9% 1,000 ML IVPB SCH (09:08)
[2017-01-12 09:22] LABS: RETICULOCYTE COUNT % 2.1 % (0.5-1.5)
[2017-01-12 09:25] LABS: ABNORMAL IP MESSAGE 1; HEMATOCRIT 34.9 % (42.0-52.0); HEMOGLOBIN 11.3 g/dl (14.0-18.0); MEAN CORPUSCULAR HGB CONC 32.4 g/dl (32.0-37.0); MEAN CORPUSCULAR VOLUME 86.6 fl (82.0-101.0); MEAN PLATELET VOLUME 11.8 fl (7.4-10.4); PLATELET COUNT 74 10^3/UL (140-415); POSITIVE DIFF @See below; RED BLOOD COUNT 4.03 10^6/ul (4.70-6.10); RED CELL DISTRIBUTION WIDTH 17.2 % (11.5-14.5); WHITE BLOOD COUNT 2.2 10^3/ul (4.8-10.8)
[2017-01-12 09:43] LABS: INR 1.03; PROTIME 13.5 Sec (12.2-14.2); PT RATIO 1.1
[2017-01-12 09:44] LABS: PARTIAL THROMBOPLASTIN TIME 28.7 Sec (25.0-35.0)
[2017-01-12 09:54] LABS: ALBUMIN 3.8 g/dl (3.3-4.9); ALBUMIN/GLOBULIN RATIO 1.22; AMYLASE 89 U/L (11-123); BILIRUBIN,INDIRECT 1.1 mg/dl (0-1.1); BILIRUBIN,TOTAL 1.1 mg/dl (0.2-1.3); CALCIUM 8.1 mg/dl (8.4-10.2); CREATININE 0.53 mg/dl (0.61-1.24); POTASSIUM 3.6 mmol/L (3.5-5.1); TOTAL PROTEIN 6.9 g/dl (6.1-8.1)
[2017-01-12 10:31] LABS: ANISOCYTOSIS 1+ (0-0); BASOPHILS % (M) 2 % (0-2); EOSINOPHILS % (M) 2 % (0-7); GIANT THROMBO% (M) 1 % (0-0); MONOCYTES % (M) 5 % (0-11); PLATELET ESTIMATE DECREASED; POLYCHROMASIA 3+ (0-0)
--- NOTE | 2017-01-12 10:51 | PN ---
Date/Time of Note Date/Time of Note DATE: 01/12/17 TIME: 10:46 Assessment/Plan VTE Prophylaxis VTE Prophylaxis Intervention: SCD's Lines/Catheters IV [facility]ter Type (from [email or web address] Peripheral IV Urinary Cath still in place: No Assessment/Plan Chief Complaint/Hosp Course 1. Hematemesis. Status post esophagogastroduodenoscopy that showed erosive esophagitis and moderate gastritis. Continue proton pump inhibitors. Stable H& H. 2. Alcohol abuse. Cessation advised. Continue tapering dose of Librium. Continue multivitamins. 3. Pancytopenia. Etiology unclear. Probably from alcohol abuse. Hematology evaluation ongoing. 4. Fluids, electrolytes, and nutrition. Regular consistency diet. 5. DVT prophylaxis. Bilateral sequential compression devices. 6. Plan. Continue PPI. Monitor H&H closely. Replete magnesium. Await further hematology inputs. Transfer the patient to Med/Surg. Case discussed with Dr. Daigle. Problems: Subjective 24 Hr Interval Summary Free Text/Dictation Asking for pain medication around the clock. Exam/Review of Systems Vital Signs Vitals Vital Signs Date Time Temp Pulse Resp B/P Pulse Ox O2 Delivery O2 Flow Rate FiO2 01/12/17 08:04 98.0 63 18 127/87 96 01/10/17 11:59 Room Air Exam General: Adequately build 31 year-old male lying in bed in no apparent distress. HEENT: Normocephalic, atraumatic. Eyes: Anicteric sclerae, conjunctivae clear. ENT: Nasal septum midline, oral mucosa moist. Neck supple, no JVD noticed. Respiratory: Bilaterally clear breath sounds. No use of accessory muscles of respiration. No adventitious breath sounds. Cardiovascular: S1, S2 heard. No murmurs or gallops. Abdomen: Soft and nondistended. Bowel sounds positive in all 4 quadrants. Genitourinary: Deferred. Extremities: No cyanosis, no clubbing, no edema. Peripheral pulses palpable. Neurologic: Cranial nerves II through XII grossly intact. The patient is awake, alert, and oriented. Skin: Normal skin turgor. No skin rashes. Results Result Diagram: 01/12/17 0815 01/12/17 0815 Results 24 hrs Laboratory Tests Test 01/11/17 12:41 01/11/17 18:36 01/12/17 08:15 Hemoglobin 10.4 L 11.4 L 11.3 L Hematocrit 30.1 L 33.3 L 34.9 L White Blood Count 2.2 #L Red Blood Count 4.03 L Mean Corpuscular Volume 86.6 Mean Corpuscular Hemoglobin 28.0 L Mean Corpuscular Hemoglobin Concent 32.4 Red Cell Distribution Width 17.2 H Platelet Count 74 L Mean Platelet Volume 11.8 H Neutrophils % Segmented Neutrophils % (Manual) 57 Band Neutrophils % (Manual) 5 H Lymphocytes % Lymphocytes % (Manual) 29 Monocytes % Monocytes % (Manual) 5 Eosinophils % Eosinophils % (Manual) 2 Basophils % Basophils % (Manual) 2 Nucleated Red Blood Cells % 0.0 Neutrophils # Neutrophils # (Manual) 1.3 L Band Neutrophils # 0.1 Absolute Lymphocytes (Manual) 0.6 L Lymphocytes # Monocytes # Absolute Monocytes (Manual) 0.1 L Eosinophils # Basophils # Basophils # (Manual) 0.0 Nucleated Red Blood Cells # Platelet Estimate DECREASED Giant Platelets 1 H Polychromasia 3+ Anisocytosis 1+ Absolute Reticulocyte Count 0.083 Percent Reticulocyte Count 2.1 H Prothrombin Time 13.5 Prothrombin Time Ratio 1.1 INR International Normalized Ratio 1.03 Activated Partial Thromboplast Time 28.7 Fibrinogen 268.0 Sodium Level 134 L Potassium Level 3.6 Chloride Level 96 L Carbon Dioxide Level 30 Anion Gap 12 Blood Urea Nitrogen 2 L Creatinine 0.53 L Glucose Level 74 Calcium Level 8.1 L Magnesium Level 1.3 L Total Bilirubin 1.1 Direct Bilirubin 0.00 Indirect Bilirubin 1.1 Aspartate Amino Transf (AST/SGOT) 141 H Alanine Aminotransferase (ALT/SGPT) 77 H Alkaline Phosphatase 59 Total Protein 6.9 Albumin 3.8 Globulin 3.10 Albumin/Globulin Ratio 1.22 Amylase Level 89 Lipase 352 H Medications Medications Current Medications Multivitamins/ Thiamine HCl/ Folic Acid/Sodium Chloride (Mvi Adult/ Vitamin B1/ Folic Acid/NS) 1,011.2 ml @ 125 mls/ hr DAILY@09 IVPB Last administered on 09:08; Admin Dose 125 MLS/HR; Start 01/11/17 at 09:00 Ondansetron HCl (Zofran Inj) 4 mg Q6H PRN IV NAUSEA AND/OR VOMITING; Start 01/10/17 at 10:30 Acetaminophen (Tylenol Tab) 650 mg Q6H PRN PO PAIN LEVEL 1-3 OR FEVER; Start 01/10/17 at 10:30 Acetaminophen (Tylenol Supp) 650 mg Q6H PRN CO PAIN LEVEL 1-3 OR FEVER; Start 01/10/17 at 10:30 Acetaminophen/ Hydrocodone Bitart ([place] (5/325)) 1 tab Q6H PRN PO MODERATE PAIN LEVEL 4-6; Start 01/10/17 at 10:30 Acetaminophen/ Hydrocodone Bitart ([place] (5/325)) 2 tab Q6H PRN PO SEVERE PAIN LEVEL 7-10; Start 01/10/17 at 10:30 Docusate Sodium (Colace) 100 mg Q12H PRN PO CONSTIPATION; Start 01/10/17 at 10: 30 Magnesium Hydroxide (Milk Of Mag) 30 ml DAILY PRN PO CONSTIPATION; Start at 10:30 Bisacodyl (Dulcolax Supp) 10 mg DAILY PRN CO CONSTIPATION; Start 01/10/17 at 10 :30 Pantoprazole (Protonix Iv) 40 mg DAILY@06 IV Last administered on 01/12/17 05: 11; Admin Dose 40 MG; Start 01/11/17 at 06:00 Morphine Sulfate (morphine) 2 mg Q4H PRN IV PAIN LEVEL 7-10 Last administered on 01/12/17 05:11; Admin Dose 2 MG; Start 01/10/17 at 12:30 Chlordiazepoxide (Librium) 25 mg BID PO Last administered on 01/12/17 09:07; Admin Dose 25 MG; Start 01/10/17 at 21:00 Lorazepam 1 mg 1 mg Q2H PRN IV DT; Start 01/10/17 at 15:00 Sodium Chloride 1,000 ml @ 100 mls/hr Q10H IV Last administered on 01/11/17 20:45; Admin Dose 100 MLS/HR; Start 01/11/17 at 19:00 Ferric Sodium Gluconate Complex 125 mg/Sodium Chloride 110 ml @ 100 mls/hr Q24H IVPB Last administered on 01/11/17 20:44; Admin Dose 100 MLS/HR; Start 01/11/17 at 21:00; Stop 01/13/17 at 22:05 Magnesium Sulfate/ Sodium Chloride (Magnesium Sulfate/NS) 106 ml @ 35.333 mls/ hr ONCE ONCE IVPB ; Start 01/12/17 at 11:00; Stop 01/12/17 at 13:59; Status UNV MIRTHA SWAN NP Jan 12, 2017 10:51
[2017-01-12] MEDS ORDERED: MAGNESIUM SULFATE 3 GM in SOD CHLORIDE 0.9% 100 ML IVPB ONE (12:00)
[2017-01-12 15:18] LABS: FOLATE 10.9 ng/ml (2.8-20.0)
--- NOTE | 2017-01-12 20:02 | PN ---
DATE: 01/12/2017 SUBJECTIVE: Patient states he is feeling better. Less abdominal pain. Patient has had no further nausea and vomiting. OBJECTIVE DATA: GENERAL: Patient is a well-developed, well-nourished male who is in no acute distress. VITAL SIGNS: Temperature 98.6, pulse 67 per minute, respirations 18, blood pressure 132/83, pulse oximetry 96 percent on room air. SKIN: No ecchymosis, no petechiae or rashes. HEENT: No mucosal lesions. No scleral icterus. NECK: Supple. No jugular distention or thyroid enlargement. CHEST: Clear to auscultation and percussion. No rhonchi, wheezes, rales, or rubs. NODES: No palpable lymphadenopathy. ABDOMEN: Abdomen is flat but patient still guards in the upper abdomen. Unable to palpate liver or spleen. No ascites. Bowel sounds are active. EXTREMITIES: Good range of motion. No clubbing, edema or cyanosis. No palpable cords or Homans sign. NEUROLOGIC: Neurologic is now normal. The patient is no longer tremulous. LABORATORY AND DIAGNOSTIC DATA: An ultrasound of the spleen has been performed and the spleen apparently measures normal size, 10.4 x 3.7 x 4.7 cm. White count today 2200, with an absolute neutrophil count of 1300, hemoglobin 11.3, hematocrit 34.9 with MCV of 86.6, and platelet count 74,000. The reticulocyte count is 2.1 percent with an absolute reticulocyte count of 83,000. Sodium 134, potassium 3.6, BUN 2, creatinine 0.53, bilirubin 1.1, indirect 1.1. AST 141, ALT 77. B12 741 and folic acid 10.9. Pro time is 13.5 seconds. INR of 1.03, PTT 27.8 seconds. Fibrinogen 268,000. IMPRESSION: 1. Pancytopenia likely secondary to acute alcohol toxicity. 2. Iron deficiency anemia. DISCUSSION: Patient will continue to get iron replacement parenterally. Patient's spleen is not enlarged, and therefore it is difficult to attribute thrombocytopenia to splenomegaly. The MPV is enlarged suggesting new platelet production. I will further evaluate for the possibility of an antibody induced platelet destruction. At this time would continue the parental iron replacement. Dictated By: Gerardo Prater MD /isabel/kristopher /Document#: [id number]
--- NOTE | 2017-01-12 20:23 | PN ---
Date/Time of Note Date/Time of Note DATE: 01/12/17 TIME: 20:20 Assessment/Plan VTE Prophylaxis VTE Prophylaxis Intervention: SCD's Lines/Catheters [facility] Peripheral IV Urinary Cath still in place: No Assessment/Plan Chief Complaint/Hosp Course Summary of Assessment and Plan Assessment: GI bleeding/hematemesis EGD 01/11/17 * Erosive esophagitis * Moderate gastritis. * Small antral nodularity. Biopsied * Antral pseudodiverticulum Alcohol abuse Plan: Continue present regimen Advance diet as tolerated Abstinence Patient appears stable for outpatient management . Subjective: Course reviewed with nursing staff Patient interviewed and examined All labs, imaging and other results reviewed The patient reports feeling better There is no evidence of overt gastrointestinal bleeding There appears to be no evidence of significant withdrawal syndrome Patient appears stable and probably safe for outpatient follow-up Exam: General: well developed, well nourished, alert and oriented x3 , in no acute distress Skin: No lesions, no stigmata chronic liver disease, no evidence of bleeding diathesis Lymphatic: No palpable lymphadenopathy HEENT: No lesions Cardiovascular: Heart: Regular rate and rhythm, no murmurs, gallops or rubs. Peripheral pulses present within normal limits, no cyanosis, clubbing or edemas. No pulsatile abdominal mass Respiratory: Lungs clear to auscultation and percussion, no wheezing, no rubs Gastrointestinal and Liver: Abdomen: Soft, non tender, non-distended, no hernias , no masses, no organomegaly, no ascites, no guarding, no rebound tenderness, normoactive bowel sounds. Extremities: No cyanosis, clubbing, or edema. Diagnostic Studies: Available data and images were reviewed personally. See reports. Significant results and findings are addressed here or in the assessment and plan. Problems: Exam/Review of Systems Vital Signs Vitals Vital Signs Date Time Temp Pulse Resp B/P Pulse Ox O2 Delivery O2 Flow Rate FiO2 01/12/17 20:08 70 01/12/17 19:52 98.6 20 116/80 96 01/10/17 11:59 Room Air Results Result Diagram: 01/12/17 0815 01/12/17 0815 Results 24 hrs Laboratory Tests Test 01/12/17 08:15 01/12/17 08:16 White Blood Count 2.2 #L Red Blood Count 4.03 L Hemoglobin 11.3 L Hematocrit 34.9 L Mean Corpuscular Volume 86.6 Mean Corpuscular Hemoglobin 28.0 L Mean Corpuscular Hemoglobin Concent 32.4 Red Cell Distribution Width 17.2 H Platelet Count 74 L Mean Platelet Volume 11.8 H Neutrophils % Segmented Neutrophils % (Manual) 57 Band Neutrophils % (Manual) 5 H Lymphocytes % Lymphocytes % (Manual) 29 Monocytes % Monocytes % (Manual) 5 Eosinophils % Eosinophils % (Manual) 2 Basophils % Basophils % (Manual) 2 Nucleated Red Blood Cells % 0.0 Neutrophils # Neutrophils # (Manual) 1.3 L Band Neutrophils # 0.1 Absolute Lymphocytes (Manual) 0.6 L Lymphocytes # Monocytes # Absolute Monocytes (Manual) 0.1 L Eosinophils # Basophils # Basophils # (Manual) 0.0 Nucleated Red Blood Cells # Platelet Estimate DECREASED Giant Platelets 1 H Polychromasia 3+ Anisocytosis 1+ Absolute Reticulocyte Count 0.083 Percent Reticulocyte Count 2.1 H Prothrombin Time 13.5 Prothrombin Time Ratio 1.1 INR International Normalized Ratio 1.03 Activated Partial Thromboplast Time 28.7 Fibrinogen 268.0 Sodium Level 134 L Potassium Level 3.6 Chloride Level 96 L Carbon Dioxide Level 30 Anion Gap 12 Blood Urea Nitrogen 2 L Creatinine 0.53 L Glucose Level 74 Calcium Level 8.1 L Magnesium Level 1.3 L Total Bilirubin 1.1 Direct Bilirubin 0.00 Indirect Bilirubin 1.1 Aspartate Amino Transf (AST/SGOT) 141 H Alanine Aminotransferase (ALT/SGPT) 77 H Alkaline Phosphatase 59 Total Protein 6.9 Albumin 3.8 Globulin 3.10 Albumin/Globulin Ratio 1.22 Amylase Level 89 Lipase 352 H HIV (1&2) Antibody NEGATIVE Vitamin B12 Level 741 Folate 10.9 Immunoglobulin A 412 H Immunoglobulin G 793 Immunoglobulin M 112 Medications Medications Current Medications Multivitamins/ Thiamine HCl/ Folic Acid/Sodium Chloride (Mvi Adult/ Vitamin B1/ Folic Acid/NS) 1,011.2 ml @ 125 mls/ hr DAILY@09 IVPB Last administered on t 09:08; Admin Dose 125 MLS/HR; Start 01/11/17 at 09:00 Ondansetron HCl (Zofran Inj) 4 mg Q6H PRN IV NAUSEA AND/OR VOMITING; Start 01/10/17 at 10:30 Acetaminophen (Tylenol Tab) 650 mg Q6H PRN PO PAIN LEVEL 1-3 OR FEVER; Start 01/10/17 at 10:30 Acetaminophen (Tylenol Supp) 650 mg Q6H PRN IN PAIN LEVEL 1-3 OR FEVER; Start 01/10/17 at 10:30 Acetaminophen/ Hydrocodone Bitart ([place] (5/325)) 1 tab Q6H PRN PO MODERATE PAIN LEVEL 4-6; Start 01/10/17 at 10:30 Acetaminophen/ Hydrocodone Bitart ([place] (5/325)) 2 tab Q6H PRN PO SEVERE PAIN LEVEL 7-10; Start 01/10/17 at 10:30 Docusate Sodium (Colace) 100 mg Q12H PRN PO CONSTIPATION; Start 01/10/17 at 10: 30 Magnesium Hydroxide (Milk Of Mag) 30 ml DAILY PRN PO CONSTIPATION; Start at 10:30 Bisacodyl (Dulcolax Supp) 10 mg DAILY PRN IN CONSTIPATION; Start 01/10/17 at 10 :30 Pantoprazole (Protonix Iv) 40 mg DAILY@06 IV Last administered on 01/12/17 05: 11; Admin Dose 40 MG; Start 01/11/17 at 06:00 Morphine Sulfate (morphine) 2 mg Q4H PRN IV PAIN LEVEL 7-10 Last administered on 01/12/17 15:10; Admin Dose 2 MG; Start 01/10/17 at 12:30 Chlordiazepoxide (Librium) 25 mg BID PO Last administered on 01/12/17 09:07; Admin Dose 25 MG; Start 01/10/17 at 21:00 Lorazepam 1 mg 1 mg Q2H PRN IV DT; Start 01/10/17 at 15:00 Sodium Chloride 1,000 ml @ 100 mls/hr Q10H IV Last administered on 01/12/17 18:26; Admin Dose 100 MLS/HR; Start 01/11/17 at 19:00 Ferric Sodium Gluconate Complex/ Sodium Chloride ([place]/NS) 110 ml @ 100 mls/hr Q24H IVPB Last administered on 01/11/17 20:44; Admin Dose 100 MLS/HR; Start 01/11/17 at 21:00; Stop 01/13/17 at 22:05 VIANCA MENJIVAR MD Jan 12, 2017 20:23
[2017-01-12] MEDS: SOD FERRIC GLUC COMPLX 125 MG in SOD CHLORIDE 0.9% 100 ML IVPB SCH (20:28)
[2017-01-13] VITALS (10 sets, daily range): BP systolic 115–133; BP diastolic 73–90; PULSE 56–85; RESP 18–20
[2017-01-13] MEDS: SOD CHLORIDE 0.9% 1,000 ML IV SCH ×3 (01:20→20:21)
[2017-01-13 01:36] LABS: PROTEIN, TOTAL 6.3 g/dL (6.1-8.1)
[2017-01-13] MEDS: PANTOPRAZOLE 40 MG INJ IV SCH (06:32)
[2017-01-13] MEDS: CHLORDIAZEPOXIDE 25 MG CAP PO SCH (08:45)
[2017-01-13] MEDS: MULTIVITAMINS 10 ML, THIAMINE 100 MG, FOLIC ACID 1 MG in SOD CHLORIDE 0.9% 1,000 ML IVPB SCH (08:46)
[2017-01-13] MEDS: HYDROCODONE/APAP (5/325) TAB PO PRN ×2 (08:46→14:45)
[2017-01-13 08:48] LABS: ABNORMAL IP MESSAGE 1; BASOPHILS % 0.9 % (0.0-2.0); EOSINOPHILS % 1.8 % (0.0-7.0); HEMATOCRIT 35.5 % (42.0-52.0); HEMOGLOBIN 11.7 g/dl (14.0-18.0); LYMPHOCYTES # 0.6 10^3/ul (0.8-2.9); LYMPHOCYTES % 28.3 % (15.0-51.0); MEAN CORPUSCULAR HEMOGLOBIN 28.4 pg (29.0-33.0); MEAN CORPUSCULAR VOLUME 86.2 fl (82.0-101.0); MEAN PLATELET VOLUME 11.2 fl (7.4-10.4); MONOCYTE # 0.2 10^3/ul (0.3-0.9); MONOCYTES % 10.2 % (0.0-11.0); NEUTROPHIL # 1.3 10^3/ul (1.6-7.5); NEUTROPHILS % 58.4 % (39.0-77.0); PLATELET COUNT 84 10^3/UL (140-415); POSITIVE DIFF @See below; RED BLOOD COUNT 4.12 10^6/ul (4.70-6.10); RED CELL DISTRIBUTION WIDTH 17.3 % (11.5-14.5); WHITE BLOOD COUNT 2.3 10^3/ul (4.8-10.8)
[2017-01-13 10:09] LABS: AMYLASE 64 U/L (11-123)
[2017-01-13 10:17] LABS: ALBUMIN 3.9 g/dl (3.3-4.9); ALBUMIN/GLOBULIN RATIO 1.34; BILIRUBIN,INDIRECT 0.7 mg/dl (0-1.1); BILIRUBIN,TOTAL 0.7 mg/dl (0.2-1.3); CALCIUM 8.9 mg/dl (8.4-10.2); CREATININE 0.53 mg/dl (0.61-1.24); POTASSIUM 3.5 mmol/L (3.5-5.1); TOTAL PROTEIN 6.8 g/dl (6.1-8.1)
[2017-01-13 14:42] LABS: ANA SCREEN NEGATIVE (NEGATIVE)
--- NOTE | 2017-01-13 16:08 | PN ---
Date/Time of Note Date/Time of Note DATE: 01/13/17 TIME: 16:04 Assessment/Plan VTE Prophylaxis VTE Prophylaxis Intervention: SCD's Lines/Catheters IV C[facility] Type [facility]from [facility] Peripheral IV Urinary Cath still in place: No Assessment/Plan Chief Complaint/Hosp Course 1. Hematemesis. Status post esophagogastroduodenoscopy that showed erosive esophagitis and moderate gastritis. Continue proton pump inhibitors. Stable H& H. Pathology from gastric biopsy negative for any H. pylori. 2. Alcohol abuse. Cessation advised. Continue tapering dose of Librium. Continue multivitamins. 3. Pancytopenia. Etiology unclear. Probably from alcohol abuse. Hematology evaluation ongoing. 4. Iron deficiency. Continue iron supplements. 5. Fluids, electrolytes, and nutrition. Regular consistency diet. 6. DVT prophylaxis. Bilateral sequential compression devices. 7. Plan. Continue PPI. Monitor H&H closely. Await further hematology inputs. Transfer the patient to Med/Surg. Case discussed with Dr. Daigle. Problems: Subjective 24 Hr Interval Summary Free Text/Dictation Was complaining of pain in the upper chest wall. Exam/Review of Systems Vital Signs Vitals Vital Signs Date Time Temp Pulse Resp B/P Pulse Ox O2 Delivery O2 Flow Rate FiO2 01/13/17 15:24 98.1 69 18 115/73 98 01/10/17 11:59 Room Air Intake and Output 01/12/17 01/12/17 01/13/17 15:00 23:00 07:00 Intake Total 1511.2 ml 900 ml Balance 1511.2 ml 900 ml Exam General: Adequately build 31 year-old male lying in bed in no apparent distress. HEENT: Normocephalic, atraumatic. Eyes: Anicteric sclerae, conjunctivae clear. ENT: Nasal septum midline, oral mucosa moist. Neck supple, no JVD noticed. Respiratory: Bilaterally clear breath sounds. No use of accessory muscles of respiration. No adventitious breath sounds. Cardiovascular: S1, S2 heard. No murmurs or gallops. Abdomen: Soft and nondistended. Bowel sounds positive in all 4 quadrants. Genitourinary: Deferred. Extremities: No cyanosis, no clubbing, no edema. Peripheral pulses palpable. Neurologic: Cranial nerves II through XII grossly intact. The patient is awake, alert, and oriented. Skin: Normal skin turgor. No skin rashes. Results Result Diagram: 01/13/17 0815 01/13/17 0815 Results 24 hrs Laboratory Tests Test 01/13/17 08:15 White Blood Count 2.3 L Red Blood Count 4.12 L Hemoglobin 11.7 L Hematocrit 35.5 L Mean Corpuscular Volume 86.2 Mean Corpuscular Hemoglobin 28.4 L Mean Corpuscular Hemoglobin Concent 33.0 Red Cell Distribution Width 17.3 H Platelet Count 84 L Mean Platelet Volume 11.2 H Neutrophils % 58.4 Lymphocytes % 28.3 Monocytes % 10.2 Eosinophils % 1.8 Basophils % 0.9 Nucleated Red Blood Cells % 0.0 Neutrophils # 1.3 L Lymphocytes # 0.6 L Monocytes # 0.2 L Eosinophils # 0.0 Basophils # 0.0 Nucleated Red Blood Cells # 0.0 Sodium Level 137 Potassium Level 3.5 Chloride Level 101 Carbon Dioxide Level 27 Anion Gap 13 Blood Urea Nitrogen 5 L Creatinine 0.53 L Glucose Level 91 Calcium Level 8.9 Phosphorus Level 3.9 Magnesium Level 1.4 L Total Bilirubin 0.7 Direct Bilirubin 0.00 Indirect Bilirubin 0.7 Aspartate Amino Transf (AST/SGOT) 138 H Alanine Aminotransferase (ALT/SGPT) 76 H Alkaline Phosphatase 63 Total Protein 6.8 Albumin 3.9 Globulin 2.90 Albumin/Globulin Ratio 1.34 Amylase Level 64 Lipase 369 H Medications Medications Current Medications Multivitamins/ Thiamine HCl/ Folic Acid/Sodium Chloride (Mvi Adult/ Vitamin B1/ Folic Acid/NS) 1,011.2 ml @ 125 mls/ hr DAILY@09 IVPB Last administered on 08:46; Admin Dose 125 MLS/HR; Start 01/11/17 at 09:00 Ondansetron HCl (Zofran Inj) 4 mg Q6H PRN IV NAUSEA AND/OR VOMITING; Start 01/10/17 at 10:30 Acetaminophen (Tylenol Tab) 650 mg Q6H PRN PO PAIN LEVEL 1-3 OR FEVER; Start 01/10/17 at 10:30 Acetaminophen (Tylenol Supp) 650 mg Q6H PRN [place] PAIN LEVEL 1-3 OR FEVER; Start 01/10/17 at 10:30 Acetaminophen/ Hydrocodone Bitart ([place] (5/325)) 1 tab Q6H PRN PO MODERATE PAIN LEVEL 4-6 Last administered on 01/13/17 14:45; Admin Dose 1 TAB; Start at 10:30 Acetaminophen/ Hydrocodone Bitart ([place] (5/325)) 2 tab Q6H PRN PO SEVERE PAIN LEVEL 7-10; Start 01/10/17 at 10:30 Docusate Sodium (Colace) 100 mg Q12H PRN PO CONSTIPATION; Start 01/10/17 at 10: 30 Magnesium Hydroxide (Milk Of Mag) 30 ml DAILY PRN PO CONSTIPATION; Start at 10:30 Bisacodyl (Dulcolax Supp) 10 mg DAILY PRN [place] CONSTIPATION; Start 01/10/17 at 10 :30 Pantoprazole (Protonix Iv) 40 mg DAILY@06 IV Last administered on 01/13/17 06: 32; Admin Dose 40 MG; Start 01/11/17 at 06:00 Morphine Sulfate (morphine) 2 mg Q4H PRN IV PAIN LEVEL 7-10 Last administered on 01/12/17 21:40; Admin Dose 2 MG; Start 01/10/17 at 12:30 Chlordiazepoxide (Librium) 25 mg BID PO Last administered on 01/13/17 08:45; Admin Dose 25 MG; Start 01/10/17 at 21:00 Lorazepam 1 mg 1 mg Q2H PRN IV DT; Start 01/10/17 at 15:00 Sodium Chloride 1,000 ml @ 100 mls/hr Q10H IV Last administered on 01/13/17 01:20; Admin Dose 100 MLS/HR; Start 01/11/17 at 19:00 Ferric Sodium Gluconate Complex/ Sodium Chloride (Ferrlecit/NS) 110 ml @ 100 mls/hr Q24H IVPB Last administered on 01/12/17 20:28; Admin Dose 100 MLS/HR; Start 01/11/17 at 21:00; Stop 01/13/17 at 22:05 MIRTHA SWAN NP Jan 13, 2017 16:08
--- NOTE | 2017-01-13 16:22 | PN ---
DATE: 01/13/2017 HEMATOLOGY PROGRESS NOTE SUBJECTIVE: The patient states that he is feeling well now. He has no further abdominal pain. No nausea or vomiting. There has been no hematemesis. Oral intake appears to be fair. OBJECTIVE: GENERAL: The patient is a well-developed, well-nourished male in no acute distress. VITAL SIGNS: Temperature 98.1, pulse 69, respirations 18, blood pressure 115/73, pulse oximetry 98% on room air. SKIN: No ecchymosis, no petechiae or rashes. HEENT: No mucosal lesions. No scleral icterus. NECK: Supple, no jugular venous distention or thyroid enlargement. CHEST: Clear to auscultation and percussion. No rhonchi, wheezes, rales or rubs. NODES: No palpable lymphadenopathy in the lymph node bearing area. HEART: Regular sinus rhythm, no S3, S4 or murmurs. No rubs. ABDOMEN: Soft. There is still some tenderness particularly in the right upper quadrant. Bowel chiara nds are active. EXTREMITIES: No clubbing. No edema or cyanosis. Good range of motion. NEUROLOGIC: Normal. There is no tremor at this time. LABORATORY: White count today 2500, hemoglobin 11.7, hematocrit 35.5 and platelet count is 84,000. MPV 11.2. Antiplatelet antibodies etc. are pending at this time. 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 I do feel that the patient is well enough to be discharged. Awaiting MARGRET and antiplatelet antibodie s to further help determine the etiology of the patient's thrombocytopenia. The patient as noted pr eviously does have an increased MPV suggesting a population of young platelets. This is verified on review of the peripheral smear. Dictated By: ZACHARY ALLEN MD SR/NTS Conf#: [id number] DID#: [id number]
[2017-01-13] MEDS ORDERED: MAGNESIUM SULFATE 3 GM in SOD CHLORIDE 0.9% 100 ML IVPB SCH (17:30)
--- NOTE | 2017-01-13 19:35 | PN ---
Date/Time of Note Date/Time of Note DATE: 01/13/17 TIME: 19:34 Assessment/Plan VTE Prophylaxis VTE Prophylaxis Intervention: SCD's Lines/Catheters [facility]from [facility] Peripheral IV Urinary Cath still in place: No Assessment/Plan Chief Complaint/Hosp Course Summary of Assessment and Plan Assessment: GI bleeding/hematemesis EGD 01/11/17 * Erosive esophagitis * Moderate gastritis. * Small antral nodularity. Biopsied * Antral pseudodiverticulum Alcohol abuse Pancytopenia Plan: Continue present regimen Abstinence Patient appears stable for outpatient management . Subjective: Course reviewed with nursing staff Patient interviewed and examined All labs, imaging and other results reviewed The patient reports feeling better There is no evidence of overt gastrointestinal bleeding There appears to be no evidence of significant withdrawal syndrome Patient appears stable and probably safe for outpatient follow-up Exam: General: well developed, well nourished, alert and oriented x3 , in no acute distress Skin: No lesions, no stigmata chronic liver disease, no evidence of bleeding diathesis Lymphatic: No palpable lymphadenopathy HEENT: No lesions Cardiovascular: Heart: Regular rate and rhythm, no murmurs, gallops or rubs. Peripheral pulses present within normal limits, no cyanosis, clubbing or edemas. No pulsatile abdominal mass Respiratory: Lungs clear to auscultation and percussion, no wheezing, no rubs Gastrointestinal and Liver: Abdomen: Soft, non tender, non-distended, no hernias , no masses, no organomegaly, no ascites, no guarding, no rebound tenderness, normoactive bowel sounds. Extremities: No cyanosis, clubbing, or edema. Diagnostic Studies: Available data and images were reviewed personally. See reports. Significant results and findings are addressed here or in the assessment and plan. Problems: Exam/Review of Systems Vital Signs Vitals Vital Signs Date Time Temp Pulse Resp B/P Pulse Ox O2 Delivery O2 Flow Rate FiO2 01/13/17 16:42 85 01/13/17 15:24 98.1 18 115/73 98 01/10/17 11:59 Room Air Intake and Output 01/12/17 01/12/17 01/13/17 15:00 23:00 07:00 Intake Total 1511.2 ml 900 ml Balance 1511.2 ml 900 ml Results Result Diagram: 01/13/17 0815 01/13/17 0815 Results 24 hrs Laboratory Tests Test 01/13/17 08:15 White Blood Count 2.3 L Red Blood Count 4.12 L Hemoglobin 11.7 L Hematocrit 35.5 L Mean Corpuscular Volume 86.2 Mean Corpuscular Hemoglobin 28.4 L Mean Corpuscular Hemoglobin Concent 33.0 Red Cell Distribution Width 17.3 H Platelet Count 84 L Mean Platelet Volume 11.2 H Neutrophils % 58.4 Lymphocytes % 28.3 Monocytes % 10.2 Eosinophils % 1.8 Basophils % 0.9 Nucleated Red Blood Cells % 0.0 Neutrophils # 1.3 L Lymphocytes # 0.6 L Monocytes # 0.2 L Eosinophils # 0.0 Basophils # 0.0 Nucleated Red Blood Cells # 0.0 Sodium Level 137 Potassium Level 3.5 Chloride Level 101 Carbon Dioxide Level 27 Anion Gap 13 Blood Urea Nitrogen 5 L Creatinine 0.53 L Glucose Level 91 Calcium Level 8.9 Phosphorus Level 3.9 Magnesium Level 1.4 L Total Bilirubin 0.7 Direct Bilirubin 0.00 Indirect Bilirubin 0.7 Aspartate Amino Transf (AST/SGOT) 138 H Alanine Aminotransferase (ALT/SGPT) 76 H Alkaline Phosphatase 63 Total Protein 6.8 Albumin 3.9 Globulin 2.90 Albumin/Globulin Ratio 1.34 Amylase Level 64 Lipase 369 H Medications Medications Current Medications Multivitamins/ Thiamine HCl/ Folic Acid/Sodium Chloride (Mvi Adult/ Vitamin B1/ Folic Acid/NS) 1,011.2 ml @ 125 mls/ hr DAILY@09 IVPB Last administered on 08:46; Admin Dose 125 MLS/HR; Start 01/11/17 at 09:00 Ondansetron HCl (Zofran Inj) 4 mg Q6H PRN IV NAUSEA AND/OR VOMITING; Start 01/10/17 at 10:30 Acetaminophen (Tylenol Tab) 650 mg Q6H PRN PO PAIN LEVEL 1-3 OR FEVER; Start 01/10/17 at 10:30 Acetaminophen (Tylenol Supp) [address] PAIN LEVEL 1-3 OR FEVER; Start 01/10/17 at 10:30 Acetaminophen/ Hydrocodone Bitart ([place] (5/325)) 1 tab Q6H PRN PO MODERATE PAIN LEVEL 4-6 Last administered on 01/13/17 14:45; Admin Dose 1 TAB; Start at 10:30 Acetaminophen/ Hydrocodone Bitart ([place] (5/325)) 2 tab Q6H PRN PO SEVERE PAIN LEVEL 7-10; Start 01/10/17 at 10:30 Docusate Sodium (Colace) 100 mg Q12H PRN PO CONSTIPATION; Start 01/10/17 at 10: 30 Magnesium Hydroxide (Milk Of Mag) 30 ml DAILY PRN PO CONSTIPATION; Start at 10:30 Bisacodyl (Dulcolax Supp) [address] CONSTIPATION; Start 01/10/17 at 10 :30 Morphine Sulfate (morphine) 2 mg Q4H PRN IV PAIN LEVEL 7-10 Last administered on 01/12/17 21:40; Admin Dose 2 MG; Start 01/10/17 at 12:30 Lorazepam 1 mg 1 mg Q2H PRN IV DT; Start 01/10/17 at 15:00 Sodium Chloride 1,000 ml @ 100 mls/hr Q10H IV Last administered on 01/13/17 17:01; Admin Dose 100 MLS/HR; Start 01/11/17 at 19:00 Ferric Sodium Gluconate Complex/ Sodium Chloride (Ferrlecit/NS) 110 ml @ 100 mls/hr Q24H IVPB Last administered on 01/12/17 20:28; Admin Dose 100 MLS/HR; Start 01/11/17 at 21:00; Stop 01/13/17 at 22:05 Chlordiazepoxide 10 mg 10 mg TID PO ; Start 01/13/17 at 21:00 Magnesium Sulfate/ Sodium Chloride (Magnesium Sulfate/NS) 106 ml @ 35.333 mls/ hr ONCE IVPB Last administered on 01/13/17 17:00; Admin Dose 35.333 MLS/HR; Start 01/13/17 at 17:30; Stop 01/13/17 at 20:29 Pantoprazole (Protonix Tab) 40 mg DAILY@06 PO ; Start 01/14/17 at 06:00 VIANCA MENJIVAR MD Jan 13, 2017 19:35
[2017-01-13 20:27] LABS: ALBUMIN 3.8 g/dL (3.8-4.8)
[2017-01-13] MEDS: CHLORDIAZEPOXIDE 5 MG CAP PO SCH (20:46)
[2017-01-13] MEDS: SOD FERRIC GLUC COMPLX 125 MG in SOD CHLORIDE 0.9% 100 ML IVPB SCH (20:46)
[2017-01-13] MEDS: morphine 2 MG INJ IV PRN (20:47)
[2017-01-14] MEDS: HYDROCODONE/APAP (5/325) TAB PO PRN ×3 (00:17→11:49)
[2017-01-14 02:18] VITALS: BP 120/75; RESP 18
[2017-01-14] MEDS: SOD CHLORIDE 0.9% 1,000 ML IV SCH (05:55)
[2017-01-14] MEDS ORDERED: PANTOPRAZOLE (EC) 40 MG TAB PO SCH (06:00)
[2017-01-14 06:23] LABS: BASOPHILS % 0.7 % (0.0-2.0); EOSINOPHILS # 0.1 10^3/ul (0.0-0.5); EOSINOPHILS % 1.9 % (0.0-7.0); HEMATOCRIT 35.1 % (42.0-52.0); HEMOGLOBIN 11.6 g/dl (14.0-18.0); LYMPHOCYTES # 1.1 10^3/ul (0.8-2.9); LYMPHOCYTES % 40.4 % (15.0-51.0); MEAN CORPUSCULAR HEMOGLOBIN 29.1 pg (29.0-33.0); MEAN CORPUSCULAR VOLUME 88.2 fl (82.0-101.0); MEAN PLATELET VOLUME 11.6 fl (7.4-10.4); MONOCYTE # 0.4 10^3/ul (0.3-0.9); MONOCYTES % 14.6 % (0.0-11.0); NEUTROPHIL # 1.1 10^3/ul (1.6-7.5); POSITIVE DIFF @See below; RED BLOOD COUNT 3.98 10^6/ul (4.70-6.10); RED CELL DISTRIBUTION WIDTH 17.5 % (11.5-14.5); WHITE BLOOD COUNT 2.7 10^3/ul (4.8-10.8)
[2017-01-14 06:24] LABS: PLATELET COUNT 108 10^3/UL (140-415)
[2017-01-14 06:56] LABS: ALBUMIN 3.9 g/dl (3.3-4.9); ALBUMIN/GLOBULIN RATIO 1.39; BILIRUBIN,INDIRECT 0.3 mg/dl (0-1.1); BILIRUBIN,TOTAL 0.3 mg/dl (0.2-1.3); CALCIUM 9.1 mg/dl (8.4-10.2); CREATININE 0.56 mg/dl (0.61-1.24); TOTAL PROTEIN 6.7 g/dl (6.1-8.1)
[2017-01-14 07:51] VITALS: BP 117/60; RESP 16
[2017-01-14] MEDS: CHLORDIAZEPOXIDE 5 MG CAP PO SCH (08:49)
[2017-01-14] MEDS: MULTIVITAMINS 10 ML, THIAMINE 100 MG, FOLIC ACID 1 MG in SOD CHLORIDE 0.9% 1,000 ML IVPB SCH (08:49)
--- NOTE | 2017-01-14 09:20 | RADRPT ---
Vent Rate: 67 bpm RR Interval: [address] Interval: 170 msec QRS Duration: 96 msec QT Interval: 408 msec QTC Interval: 431 msec P-R-T [place]: 41 - 21 - 34 degrees Normal sinus rhythm Normal ECG Electronically Signed By: Christoph Arteaga [id number]
--- NOTE | 2017-01-14 11:45 | PDOCDIS ---
Discharge Instructions DIAGNOSIS Discharge Diagnosis Erosive esophagitis. Moderate gastritis. CONDITION Patient Condition: Stable HOME CARE INSTRUCTIONS: Diet Instructions: Regular FOLLOW UP/APPOINTMENTS Follow-up Plan 1.Gerardo Prater MD Specialty Oncology, Hematology Office Address [address] [place] [address] [address] [place] [address] Office 2. Jaycob Chase MD Specialty: Internal Medicine Office Address: [address] [place] [address] [address] [place] [address] Office OTHER ORDERS: Other Orders: 1. Regular diet as tolerated. 2. Take medications as per prescription. 3. Avoid taking alcohol. 4. Activities as tolerated. 5. Follow-up with your primary care physician in 2 weeks. If you do not have a primary care physician please call Dr. Jaycob Chase's office. 6. Follow-up with Dr. Prater next week. MIRTHA SWAN NP Jan 14, 2017 11:45
[2017-01-14] MEDS ORDERED: THIA100T10 PO (11:46)
[2017-01-14] MEDS ORDERED: PANT40TA4 PO (11:46)
[2017-01-14] MEDS ORDERED: FOLI-49 PO (11:46)
[2017-01-14] MEDS ORDERED: CHLO5CAP2 PO (11:48)
[2017-01-14] MEDS ORDERED: FER325 PO (11:58)
[2017-01-14 14:00] VITALS: BP 126/82; RESP 18
--- NOTE | 2017-01-14 14:03 | PN ---
Date/Time of Note Date/Time of Note DATE: 01/14/17 TIME: 14:01 Assessment/Plan VTE Prophylaxis VTE Prophylaxis Intervention: ambulation Lines/Catheters [facility] [place] Urinary Cath still in place: No Assessment/Plan Assessment/Plan Agree with discharge. Platelets are up to 108, which is a safe level. I encourage abstinence from alcohol. Follow up with Dr. Prater next week. Subjective 24 Hr Interval Summary Free Text/Dictation Pt stable. Discharge being planned for later today. Exam/Review of Systems Vital Signs Vitals Vital Signs Date Time Temp Pulse Resp B/P Pulse Ox O2 Delivery O2 Flow Rate FiO2 01/14/17 07:51 98.1 60 16 117/60 96 01/10/17 11:59 Room Air Intake and Output 01/13/17 01/13/17 01/14/17 15:00 23:00 07:00 Intake Total 850 ml 1900 ml Output Total 1000 ml Balance 850 ml 900 ml Exam Constitutional: alert, oriented Psych: no complaints Head: normocephalic Eyes: other (pallor) ENMT: nl external ears & nose Neck: supple Respiratory: clear to auscultation Cardiovascular: regular rate and rhythm Gastrointestinal: soft Results Result Diagram: 01/14/17 0537 01/14/17 0537 Results 24 hrs Laboratory Tests Test 01/14/17 05:37 White Blood Count 2.7 L Red Blood Count 3.98 L Hemoglobin 11.6 L Hematocrit 35.1 L Mean Corpuscular Volume 88.2 Mean Corpuscular Hemoglobin 29.1 Mean Corpuscular Hemoglobin Concent 33.0 Red Cell Distribution Width 17.5 H Platelet Count 108 #L Mean Platelet Volume 11.6 H Neutrophils % 42.0 Lymphocytes % 40.4 Monocytes % 14.6 H Eosinophils % 1.9 Basophils % 0.7 Nucleated Red Blood Cells % 0.0 Neutrophils # 1.1 L Lymphocytes # 1.1 Monocytes # 0.4 Eosinophils # 0.1 Basophils # 0.0 Nucleated Red Blood Cells # 0.0 Sodium Level 138 Potassium Level 4.0 Chloride Level 103 Carbon Dioxide Level 27 Anion Gap 12 Blood Urea Nitrogen 7 Creatinine 0.56 L Glucose Level 94 Calcium Level 9.1 Phosphorus Level 4.8 Magnesium Level 1.3 L Total Bilirubin 0.3 Direct Bilirubin 0.00 Indirect Bilirubin 0.3 Aspartate Amino Transf (AST/SGOT) 100 H Alanine Aminotransferase (ALT/SGPT) 76 H Alkaline Phosphatase 67 Total Protein 6.7 Albumin 3.9 Globulin 2.80 Albumin/Globulin Ratio 1.39 Medications Medications Current Medications Multivitamins/ Thiamine HCl/ Folic Acid/Sodium Chloride (Mvi Adult/ Vitamin B1/ Folic Acid/NS) 1,011.2 ml @ 125 mls/ hr DAILY@09 IVPB Last administered on 08:49; Admin Dose 125 MLS/HR; Start 01/11/17 at 09:00 Ondansetron HCl (Zofran Inj) 4 mg Q6H PRN IV NAUSEA AND/OR VOMITING Last administered on 01/14/17 04:06; Admin Dose 4 MG; Start 01/10/17 at 10:30 Acetaminophen (Tylenol Tab) 650 mg Q6H PRN PO PAIN LEVEL 1-3 OR FEVER; Start 01/10/17 at 10:30 Acetaminophen (Tylenol Supp) 650 mg Q6H PRN [place] PAIN LEVEL 1-3 OR FEVER; Start 01/10/17 at 10:30 Acetaminophen/ Hydrocodone Bitart ([place] (5/325)) 1 tab Q6H PRN PO MODERATE PAIN LEVEL 4-6 Last administered on 01/14/17 04:06; Admin Dose 1 TAB; Start at 10:30 Acetaminophen/ Hydrocodone Bitart ([place] (5/325)) 2 tab Q6H PRN PO SEVERE PAIN LEVEL 7-10 Last administered on 01/14/17 11:49; Admin Dose 2 TAB; Start at 10:30 Docusate Sodium (Colace) 100 mg Q12H PRN PO CONSTIPATION; Start 01/10/17 at 10: 30 Magnesium Hydroxide (Milk Of Mag) 30 ml DAILY PRN PO CONSTIPATION; Start at 10:30 Bisacodyl (Dulcolax Supp) 10 mg DAILY PRN [place] CONSTIPATION; Start 01/10/17 at 10 :30 Morphine Sulfate (morphine) 2 mg Q4H PRN IV PAIN LEVEL 7-10 Last administered on 01/13/17 20:47; Admin Dose 2 MG; Start 01/10/17 at 12:30 Lorazepam 1 mg 1 mg Q2H PRN IV DT; Start 01/10/17 at 15:00 Sodium Chloride (NS) 1,000 ml @ 100 mls/hr Q10H IV Last administered on 05:55; Admin Dose 100 MLS/HR; Start 01/11/17 at 19:00 Chlordiazepoxide (Librium) 10 mg TID PO Last administered on 01/14/17 08:49; Admin Dose 10 MG; Start 01/13/17 at 21:00 Pantoprazole (Protonix Tab) 40 mg DAILY@06 PO Last administered on 01/14/17 05 :55; Admin Dose 40 MG; Start 01/14/17 at 06:00 ELLIE NOBLES MD Jan 14, 2017 14:03
[2017-01-14 14:17] LABS: ANA SCREEN NEGATIVE (NEGATIVE)
--- NOTE | 2017-01-14 14:29 | DS ---
Date/Time of Note Date/Time of Note DATE: 01/14/17 TIME: 14:26 Discharge Summary Admission/Discharge Info Admit Date/Time Jan 10, 2017 at 09:42 Discharge Date/Time Discharge Diagnosis 1. Erosive esophagitis. 2. Moderate gastritis. 3. Alcohol abuse. 4. Pancytopenia. 5. Iron deficiency. Patient Condition: Stable Consults 1. Komal Li MD, Gastroenterology. 2. Gerardo Prater MD, Hematology. Procedures Pre-procedure Diagnosis * Hematemesis Post-procedure Diagnosis Impression: * Erosive esophagitis * Moderate gastritis. * Small antral nodularity. Biopsied * Antral pseudodiverticulum Plan: * PPI therapy * Review pathology * Advance diet * ABSTINENCE . Procedure Performed: Endoscopy (+ biopsies) CT Abdomen & Pelvis IMPRESSION: 1. Fatty metamorphosis of the liver. 2. Normal appendix. 3. No urinary tract calculus or hydronephrosis. 4. Diverticulosis of the sigmoid colon. No evidence of diverticulitis. 5. Otherwise unremarkable noncontrast CT scan of the abdomen and pelvis. Hx of Present Illness This is a 31-year-old male with extensive history of alcohol abuse and gastritis who was brought to [facility] due to reports of hematemesis and hematochezia. Patient reportedly was drinking heavy amounts of alcohol for 8 days straight roughly 2 bottles per day. He reported drinking tequila. He reported that roughly 5 days ago he had been having hematemesis and hematochezia intermittently. That is when he stopped drinking alcohol reportedly. He subsequently went to [facility] for further evaluation. Upon further examination he was noted to have some anemia with hemoglobin of 12.6 and 36.7 microcytic, hypochromic. He additionally was seen with thrombocytopenia likely secondary to his alcohol abuse and suspected liver dysfunction. He also was seen with electrolyte imbalance with a potassium of 2.5. He was also seen with transaminitis likely secondary to his liver dysfunction from alcohol abuse. He remained afebrile. Vital signs otherwise appeared normal. Hospital Course The patient was admitted to inpatient telemetry floor. A gastroenterology consult was called on this patient. The patient was started on proton pump inhibitors. The patient underwent an esophagogastroduodenoscopy on 01/11/2017 that showed erosive esophagitis, moderate gastritis, and antral pseudodiverticulum. Patient was maintained on proton pump inhibitors. The patient's H&H remained stable and the patient did not require any blood transfusion. The patient's gastric biopsy was negative for any H. pylori or evidence of any malignancy. The patient was noticed a significant pancytopenia. Consequently, a hematology consult was obtained on this patient. As per hematology, the patient's pancytopenia is most likely due to alcohol-induced marrow toxicity. The patient 's HIV 1 and 2 antibody was negative. The patient was negative for any underlying hepatitis. The patient is a current alcoholic. The patient was maintained on a daily banana bag. He was maintained on tapering dose of Librium. The patient was encouraged multiple times to be sober. Patient had evidence of underlying iron deficiency. Hence the patient was maintained on iron supplements intravenously as per hematology recommendations. The patient had a stable hospital course. The patient was cleared by consultants to be discharged home. Discharge Instructions 1. Regular diet as tolerated. 2. Take medications as per prescription. 3. Avoid taking alcohol. 4. Activities as tolerated. 5. Follow-up with your primary care physician in 2 weeks. If you do not have a primary care physician please call Dr. Jaycob Chase's office. 6. Follow-up with Dr. Prater next week. The patient verbalized understanding of his discharge instructions. At this time I would like to thank all the consultants for seeing the patient, doing the necessary procedures, and providing clinical recommendations. Case discussed with Dr. Daigle. Home Meds Active Scripts Ferrous Sulfate* (Ferrous Sulfate*) 325 Mg Tabec, 325 MG PO BID, #60 TAB Prov:MIRTHA SWAN NP 01/14/17 Chlordiazepoxide* (Chlordiazepoxide*) 5 Mg Capsule, 10 MG PO TID, #2 CAP Librium 10 mg p.o. twice daily 1 day, then Librium 5 mg p.o. twice daily 1 day. Prov:MIRTHA SWAN NP 01/14/17 Folic Acid* (Folic Acid*) 1 Mg Tablet, 1 MG PO DAILY, #30 TAB Prov:MIRTHA SWAN NP 01/14/17 Thiamine* (Thiamine*) 100 Mg Tablet, 100 MG PO DAILY, #30 TAB Prov:MIRTHA SWAN NP 01/14/17 Pantoprazole* (Pantoprazole*) 40 Mg Tablet., 40 MG PO DAILY@06, #30 TAB Prov:BENYMIRTHA ANDERS 01/14/17 Follow-up Plan 1.Gerardo Prater MD Specialty Oncology, Hematology Office Address [address] [place] [address] [address] [place] [address] Office 2. Jaycob Chase MD Specialty: Internal Medicine Office Address: [address] [place] [address] [address] [place] [address] Office Primary Care Provider Care Physician No Primary Time spent on discharge: > 30 minutes Pending Labs Laboratory Tests Test 01/14/17 05:37 White Blood Count 2.710^3/ul (4.8-10.8) Red Blood Count 3.9810^6/ul (4.70-6.10) Hemoglobin 11.6g/dl (14.0-18.0) Hematocrit 35.1% (42.0-52.0) Mean Corpuscular Volume 88.2fl (82.0-101.0) Mean Corpuscular Hemoglobin 29.1pg (29.0-33.0) Mean Corpuscular Hemoglobin Concent 33.0g/dl (32.0-37.0) Red Cell Distribution Width 17.5% (11.5-14.5) Platelet Count 26667^3/UL (140-415) Mean Platelet Volume 11.6fl (7.4-10.4) Neutrophils % 42.0% (39.0-77.0) Lymphocytes % 40.4% (15.0-51.0) Monocytes % 14.6% (0.0-11.0) Eosinophils % 1.9% (0.0-7.0) Basophils % 0.7% (0.0-2.0) Nucleated Red Blood Cells % 0.0/100WBC (0.0-0.0) Neutrophils # 1.110^3/ul (1.6-7.5) Lymphocytes # 1.110^3/ul (0.8-2.9) Monocytes # 0.410^3/ul (0.3-0.9) Eosinophils # 0.110^3/ul (0.0-0.5) Basophils # 0.010^3/ul (0.0-0.1) Nucleated Red Blood Cells # 0.010^3/ul (0.0-0.0) Sodium Level 138mmol/L (135-144) Potassium Level 4.0mmol/L (3.5-5.1) Chloride Level 103mmol/L (97-110) Carbon Dioxide Level 27mmol/L (21-31) Anion Gap 12 (8-16) Blood Urea Nitrogen 7mg/dl (7-20) Creatinine 0.56mg/dl (0.61-1.24) Glucose Level 94mg/dl (70-220) Calcium Level 9.1mg/dl (8.4-10.2) Phosphorus Level 4.8mg/dl (2.5-4.9) Magnesium Level 1.3mg/dl (1.7-2.5) Total Bilirubin 0.3mg/dl (0.2-1.3) Direct Bilirubin 0.00mg/dl (0.00-0.20) Indirect Bilirubin 0.3mg/dl (0-1.1) Aspartate Amino Transf (AST/SGOT) 100IU/L (15-46) Alanine Aminotransferase (ALT/SGPT) 76IU/L (13-69) Alkaline Phosphatase 67IU/L (42-121) Total Protein 6.7g/dl (6.1-8.1) Albumin 3.9g/dl (3.3-4.9) Globulin 2.80g/dl (1.3-3.2) Albumin/Globulin Ratio 1.39 MIRTHA SWAN NP Jan 14, 2017 14:28 Globulin 2.80g/dl (1.3-3.2) Albumin/Globulin Ratio 1.39 MIRTHA SWAN NP Jan 14, 2017 14:28
[2017-01-14] MEDS ORDERED: MAGNESIUM CHLORIDE (SR) 64 MG TAB PO ONE (17:00)
[2017-01-15 01:16] LABS: PLATELET ANTIBODY - IGA NEGATIVE (NEGATIVE); PLATELET ANTIBODY - IGG NEGATIVE (NEGATIVE); PLATELET ANTIBODY - IGM NEGATIVE (NEGATIVE)
== END 2017-01-14 16:30 | disposition home or self-care (01) | DRG 380 ==
LOC: E/R 05:33 → MS4 09:42 → PP2 01-13 20:05
PROVIDERS: ADMIT Internal Medicine; ATTEND Internal Medicine
PROC: 0DJ08ZZ Inspection of Upper Intestinal Tract, Via Natural or Artificial Opening Endoscopic (ICD-10-PCS; principal; 2017-01-11 20:30)
DX: K22.11 Ulcer of esophagus with bleeding (principal); K85.90 Acute pancreatitis without necrosis or infection, unspecified; D61.818 Other pancytopenia; K29.70 Gastritis, unspecified, without bleeding; F10.129 Alcohol abuse with intoxication, unspecified
CPT/HCPCS: 36415; 71010; 74176; 76705; 80053; 80061; 80307; 81001; 82150; 82270; 82607; 82746; 82784; 82962; 83036; 83540; 83690; 83735; 84100; 84132; 84155; 84165; 84436; 84443; 84479; 85014; 85018; 85025; 85045; 85384; 85610; 85730; 86022; 86038; 86320; 86703; 86704; 86709; 86803; 86850; 86900; 86901; 87340; 88305; 88312; 90686; 93005; 96374; 96375; C9113; J0461; J2270; J2405; J2916; J3411; J3475; J3480; J7030; J7070

== ENCOUNTER 2017-02-26 09:07 | Emergency (ER) | payer MEDICAID ==
[~2017-02-26] VITALS: Ht 157.5 cm; Wt 47.9 kg
[~2017-02-26 09:07] MED LIST changes: -ACET500T98 PO; +CHLO5CAP2 PO; -FAMO-96 PO; +FER325 PO; +FOLI-49 PO; -ONDA4TAB14 PO; -PANT40TA3 PO; +PANT40TA4 PO; +THIA100T10 PO
[2017-02-26 09:09] VITALS: Ht 157.5 cm; Wt 47.9 kg
[2017-02-26] MEDS ORDERED: ONDANSETRON 4 MG INJ IV STA (09:17)
[2017-02-26] MEDS ORDERED: PANTOPRAZOLE 40 MG INJ IV STA (09:17)
[2017-02-26] MEDS ORDERED: SOD CHLORIDE 0.9% 1,000 ML IV STA (09:17)
[2017-02-26 10:07] LABS: ABNORMAL IP MESSAGE 1; HEMOGLOBIN 11.6 g/dl (14.0-18.0); MEAN CORPUSCULAR HEMOGLOBIN 29.4 pg (29.0-33.0); MEAN CORPUSCULAR HGB CONC 34.1 g/dl (32.0-37.0); MEAN CORPUSCULAR VOLUME 86.1 fl (82.0-101.0); MEAN PLATELET VOLUME 10.5 fl (7.4-10.4); PLATELET COUNT 169 10^3/UL (140-415); POSITIVE DIFF @See below; RED BLOOD COUNT 3.95 10^6/ul (4.70-6.10); RED CELL DISTRIBUTION WIDTH 15.6 % (11.5-14.5); WHITE BLOOD COUNT 1.8 10^3/ul (4.8-10.8)
[2017-02-26] MEDS ORDERED: morphine 4 MG/ML VIAL IV STA (10:15)
[2017-02-26] MEDS ORDERED: LORAZEPAM 2 MG INJ IV ONE (10:30)
[2017-02-26 10:39] LABS: ALANINE AMINOTRANSFERASE 41 IU/L (13-69); ALBUMIN 3.9 g/dl (3.3-4.9); ALKALINE PHOSPHATASE 61 IU/L (42-121); ANION GAP 15 (8-16); ASPARTATE AMINO TRANSFERASE 51 IU/L (15-46); BILIRUBIN,INDIRECT 0.3 mg/dl (0-1.1); BILIRUBIN,TOTAL 0.3 mg/dl (0.2-1.3); BLOOD UREA NITROGEN 7 mg/dl (7-20); CALCIUM 8.2 mg/dl (8.4-10.2); CARBON DIOXIDE 29 mmol/L (21-31); CHLORIDE 111 mmol/L (97-110); CREATININE 0.54 mg/dl (0.61-1.24); GLUCOSE 117 mg/dl (70-220); INR 0.92; POTASSIUM 3.2 mmol/L (3.5-5.1); PROTIME 12.4 Sec (12.2-14.2); SODIUM 152 mmol/L (135-144); TOTAL PROTEIN 6.9 g/dl (6.1-8.1)
[2017-02-26 10:40] LABS: PARTIAL THROMBOPLASTIN TIME 30.2 Sec (25.0-35.0)
[2017-02-26 10:51] LABS: TROPONIN-I < 0.012 ng/ml (0.00-0.12)
[2017-02-26 11:25] LABS: ANISOCYTOSIS 2+ (0-0); BASOPHILS % (M) 1 % (0-2); HYPOCHROMASIA 1+ (0-0); MICROCYTOSIS 1+ (0-0); MONOCYTES % (M) 2 % (0-11); PLATELET ESTIMATE NORMAL; POLYCHROMASIA 3+ (0-0); RBC MORPHOLOGY COMMENT @See below
[2017-02-26] MEDS ORDERED: PANT40TA3 PO (11:44)
[2017-02-26] MEDS ORDERED: ONDA4TAB14 PO (11:44)
--- NOTE | 2017-02-26 11:45 | ERD ---
ER Documentation Chief Complaint Chief Complaint Complains of Vomiting blood Patient is drunk HPI Patient is a 31-year-old male with alcohol abuse who presents with abdominal pain and vomiting blood. He said this started yesterday. The symptoms come and go. The pain was always there however. He admits to drinking alcohol. He has had no treatment as of yet. Upon review of old medical records this is the patient's sixth visit since April 2016. He does not currently have a primary doctor. ROS All systems reviewed and are negative except as per history of present illness. Medications Home Meds Active Scripts Ondansetron (Ondansetron Odt) 4 Mg Tab.rapdis, 4 MG PO Q6H Y for NAUSEA AND/OR VOMITING, #30 TAB Prov:ROBER COSTA MD 02/26/17 Pantoprazole* (Protonix*) 40 Mg Tablet., 40 MG PO DAILY, #20 TAB Prov:ROBER COSTA MD 02/26/17 Ferrous Sulfate* (Ferrous Sulfate*) 325 Mg Tabec, 325 MG PO BID, #60 TAB Prov:MIRTHA SWAN NP 01/14/17 Chlordiazepoxide* (Chlordiazepoxide*) 5 Mg Capsule, 10 MG PO TID, #2 CAP Librium 10 mg p.o. twice daily 1 day, then Librium 5 mg p.o. twice daily 1 day. Prov:MIRTHA SWAN NP 01/14/17 Folic Acid* (Folic Acid*) 1 Mg Tablet, 1 MG PO DAILY, #30 TAB Prov:MIRTHA SWAN NP 01/14/17 Thiamine* (Thiamine*) 100 Mg Tablet, 100 MG PO DAILY, #30 TAB Prov:MIRTHA SWAN NP 01/14/17 Pantoprazole* (Pantoprazole*) 40 Mg Tablet., 40 MG PO DAILY@06, #30 TAB Prov:MIRTHA SWAN NP 01/14/17 Allergies Allergies: Coded Allergies: No Known Allergy (Unverified , 01/10/17) PMhx/Soc Medical and Surgical Hx: pt denies Medical Hx, pt denies Surgical Hx History of Surgery: No Anesthesia Reaction: No Hx Neurological Disorder: No Hx Respiratory Disorders: No Hx Cardiac Disorders: No Hx Psychiatric Problems: No Hx Miscellaneous Medical Probl: No Hx Alcohol Use: Yes (STARTED DRINKING LACOHOL YESTERDAY) Hx Substance Use: No Hx Tobacco Use: No Smoking Status: Never smoker FmHx Family History: No diabetes Physical Exam Vitals Vital Signs Date Time Temp Pulse Resp B/P Pulse Ox O2 Delivery O2 Flow Rate FiO2 02/26/17 12:19 98.3 76 19 124/75 100 Room Air 02/26/17 09:09 97.2 101 20 141/93 96 Physical Exam Const: Moderate distress Head: Atraumatic Eyes: Normal Conjunctiva ENT: Normal External Ears, Nose and Mouth. Neck: Full range of motion..~ No meningismus. Resp: Clear to auscultation bilaterally Cardio: Regular rate and rhythm, no murmurs Abd: Soft, she is tenderness to palpation without rebound or guarding Skin: No petechiae or rashes Back: No midline or flank tenderness Ext: No cyanosis, or edema Neur: Awake but intoxicated Result Diagram: 02/26/1794502/26/17945 Results 24 hrs Laboratory Tests Test 02/26/17 09:46 White Blood Count 1.810^3/ul Red Blood Count 3.9510^6/ul Hemoglobin 11.6g/dl Hematocrit 34.0% Mean Corpuscular Volume 86.1fl Mean Corpuscular Hemoglobin 29.4pg Mean Corpuscular Hemoglobin Concent 34.1g/dl Red Cell Distribution Width 15.6% Platelet Count 79342^3/UL Mean Platelet Volume 10.5fl Neutrophils % % Segmented Neutrophils % (Manual) 67% Band Neutrophils % (Manual) 1% Lymphocytes % % Lymphocytes % (Manual) 29% Monocytes % % Monocytes % (Manual) 2% Eosinophils % % Basophils % % Basophils % (Manual) 1% Nucleated Red Blood Cells % 0.0/100WBC Neutrophils # 10^3/ul Neutrophils # (Manual) 1.210^3/ul Band Neutrophils # 0.010^3/ul Absolute Lymphocytes (Manual) 0.510^3/ul Lymphocytes # 10^3/ul Monocytes # 10^3/ul Absolute Monocytes (Manual) 0.010^3/ul Eosinophils # 10^3/ul Basophils # 10^3/ul Basophils # (Manual) 0.010^3/ul Nucleated Red Blood Cells # 10^3/ul White Cell Morphology Comment @See below Platelet Estimate NORMAL Polychromasia 3+ Hypochromasia 1+ Anisocytosis 2+ Microcytosis 1+ Red Cell Morphology Comment @See below Prothrombin Time 12.4Sec Prothrombin Time Ratio 1.0 INR International Normalized Ratio 0.92 Activated Partial Thromboplast Time 30.2Sec Sodium Level 152mmol/L Potassium Level 3.2mmol/L Chloride Level 111mmol/L Carbon Dioxide Level 29mmol/L Anion Gap 15 Blood Urea Nitrogen 7mg/dl Creatinine 0.54mg/dl Glucose Level 117mg/dl Calcium Level 8.2mg/dl Total Bilirubin 0.3mg/dl Direct Bilirubin 0.00mg/dl Indirect Bilirubin 0.3mg/dl Aspartate Amino Transf (AST/SGOT) 51IU/L Alanine Aminotransferase (ALT/SGPT) 41IU/L Alkaline Phosphatase 61IU/L Troponin I < 0.012ng/ml Total Protein 6.9g/dl Albumin 3.9g/dl Globulin 3.00g/dl Albumin/Globulin Ratio 1.30 Current Medications Medications (Trade) Dose Ordered Sig/Nithin Route PRN Reason Start Time Stop Time Status Last Admin Dose Admin Sodium Chloride (NS) 1,000 ml @ 1,000 mls/hr Q1H STAT IV 02/26/17 09:17 02/26/17 10:16 DC 02/26/17 09:37 Pantoprazole (Protonix Iv) 40 mg ONCE STAT IV 02/26/17 09:17 02/26/17 09:19 DC 02/26/17 09:37 Ondansetron HCl (Zofran Inj) 4 mg ONCE STAT IV 02/26/17 09:17 02/26/17 09:19 DC 02/26/17 09:37 Morphine Sulfate (morphine) 4 mg ONCE STAT IV 02/26/17 10:15 02/26/17 10:17 DC 02/26/17 10:26 Lorazepam (Ativan) 1 mg ONCE ONCE IV 02/26/17 10:30 02/26/17 10:31 DC 02/26/17 10:26 Procedures/MDM EKG read by me: Rate/Rhythm: Regular rate and rhythm at a rate of 96 Intervals: Normal Impression: No evidence of ischemia or arrhythmia Patient is a 31-year-old male presents with abdominal pain and vomiting blood. His hemoglobin here is 11.6. He has a mild hypokalemia and mild hyponatremia. I believe this is likely related to alcohol abuse. The patient was given fluids , Protonix, and pain and nausea medications and feels better. He was watched in the emergency department for over 2 hours and is now more sober and feels better. I believe outpatient management is appropriate at this time. The patient could return for any worsening symptoms. I will give him a prescription for Protonix and Zofran. Departure Diagnosis: Primary Impression: Vomiting Vomiting type: unspecified Vomiting Intractability: non-intractable Nausea presence: with nausea Qualified Code: R11.2 - Non-intractable vomiting with nausea, unspecified vomiting type Additional Impressions: Alcohol abuse Hematemesis Nausea presence: with nausea Qualified Code: K92.0 - Hematemesis with nausea Abdominal pain Abdominal location: generalized Qualified Code: R10.84 - Generalized abdominal pain Condition: Fair Patient Instructions: Abdominal Pain, Vomiting (6Y-Adult) [facility] Usted se garcia hecho un examen mdico de control que le indica que no est en jeffery condicin que requiera tratamiento urgente en el Departamento de Emergencia. Un estudio ms profundo y el tratamiento de snyder condicin pueden esperar sin ningn riesgo hasta que usted sea atendida/o en el consultorio de snyder mdico o jeffery cl dusty. Es responsabilidad suya arreglar jeffery rey para el seguimiento del irish. MANEJO DE CONDICIONES NO URGENTES EN EL FUTURO 1) Si usted tiene un mdico de atencin primaria: Usted debera llamar a snyder mdico de atencin primaria antes de venir al departamento de emergencia. Despus de las horas de consultorio, snyder doctor o snyder asociado/a est disponible por telfono. El mdico o enfermero de naz en el servicio telefnico puede asesorarle por anselmo medio para atender el problema, o irish contrario se puede programar jeffery rey. 2) Si usted no tiene un mdico de atencin primaria: Llame al mdico o clnica de referencia que aparece abajo cate las horas de consultorio para hacer jeffery rey para que le vean. CLINICAS: [facility] [phone] [facility] [phone] [facility] [phone] [place] [phone] [place] [address] [phone] [place] [phone] Additional Instructions: Llame al doctor MAANA y michelle jeffery REY PARA DENTRO DE 1-2 OLSON.Dgale a la secretaria que nosotros le instruimos hacer esta rey.Avise o llame si snyder condicin se empeora antes de la rey. Regresa aqui si peor o no mejor. ROBER COSTA MD Feb 26, 2017 11:45
[2017-02-26 12:19] VITALS: BP 124/75; PULSE 76; RESP 19; TEMP 98.3
== END 2017-02-26 12:20 | disposition home or self-care (01) ==
LOC: E/R 09:07
DX: K92.0 Hematemesis (principal); R40.2252 Coma scale, best verbal response, oriented, at arrival to emergency department; F10.10 Alcohol abuse, uncomplicated; R10.84 Generalized abdominal pain; R40.2142 Coma scale, eyes open, spontaneous, at arrival to emergency department; R40.2362 Coma scale, best motor response, obeys commands, at arrival to emergency department
CPT/HCPCS: 80053; 84484; 85025; 85610; 85730; 86850; 86900; 86901; 96374; 96375; C9113; J2060; J2270; J2405; J7030; Z7502; 93005

== ENCOUNTER → 2017-03-03 | Emergency (ER) | payer SELFPAY ==
[~2017-03-03] VITALS: Ht 167.6 cm; Wt 64.5 kg
[~2017-03-03] MED LIST changes: +ONDA4TAB14 PO; +PANT40TA3 PO
[2017-03-03 13:28] VITALS: Ht 167.6 cm; Wt 64.5 kg
== END | disposition left against medical advice (07) ==
LOC: E/R 13:26
DX: Z53.21 Procedure and treatment not carried out due to patient leaving prior to being seen by health care provider (principal)

== ENCOUNTER 2017-03-30 14:34 | Emergency (ER) | payer SELFPAY ==
[~2017-03-30] VITALS: Ht 162.6 cm; Wt 69.0 kg
[2017-03-30 14:38] VITALS: Ht 162.6 cm; Wt 69.0 kg
[2017-03-30] MEDS ORDERED: SOD CHLORIDE 0.9% 1,000 ML IV STA (14:50)
[2017-03-30] MEDS ORDERED: ONDANSETRON 4 MG INJ IV STA ×2 (14:50→22:01)
[2017-03-30 15:30] LABS: BASOPHILS % 1.2 % (0.0-2.0); HEMATOCRIT 41.8 % (42.0-52.0); HEMOGLOBIN 14.5 g/dl (14.0-18.0); LYMPHOCYTES # 1.2 10^3/ul (0.8-2.9); LYMPHOCYTES % 47.6 % (15.0-51.0); MEAN CORPUSCULAR HGB CONC 34.7 g/dl (32.0-37.0); MEAN CORPUSCULAR VOLUME 86.5 fl (82.0-101.0); MEAN PLATELET VOLUME 10.7 fl (7.4-10.4); MONOCYTE # 0.1 10^3/ul (0.3-0.9); MONOCYTES % 4.4 % (0.0-11.0); NEUTROPHIL # 1.2 10^3/ul (1.6-7.5); NEUTROPHILS % 46.4 % (39.0-77.0); PLATELET COUNT 154 10^3/UL (140-415); RED BLOOD COUNT 4.83 10^6/ul (4.70-6.10); RED CELL DISTRIBUTION WIDTH 14.9 % (11.5-14.5); WHITE BLOOD COUNT 2.5 10^3/ul (4.8-10.8)
[2017-03-30 16:07] LABS: CALCIUM 8.8 mg/dl (8.4-10.2); CREATININE 0.53 mg/dl (0.61-1.24); POTASSIUM 3.6 mmol/L (3.5-5.1)
--- NOTE | 2017-03-30 19:03 | ERD ---
ER Documentation Chief Complaint Chief Complaint bib friend for vomiting blood , etoh HPI This 31-year-old male is brought in by a friend for being overly intoxicated. Had an episode of vomiting with some blood in it. Been drinking early part of the day and his friend thinks he drank too much. Patient himself cannot provide a history currently. I reviewed the patient's ED report and see that he frequently visits hospitals for alcohol intoxication and occasionally is having hematemesis. ROS All systems reviewed and are negative except as per history of present illness. Medications Home Meds Discontinued Scripts Ondansetron (Ondansetron Odt) 4 Mg Tab.rapdis, 4 MG PO Q6H Y for NAUSEA AND/OR VOMITING, #30 TAB Prov:ROBER COSTA MD 02/26/17 Pantoprazole* (Protonix*) 40 Mg Tablet., 40 MG PO DAILY, #20 TAB Prov:ROBER COSTA MD 02/26/17 Ferrous Sulfate* (Ferrous Sulfate*) 325 Mg Tabec, 325 MG PO BID, #60 TAB Prov:MIRTHA SWAN NP 01/14/17 Chlordiazepoxide* (Chlordiazepoxide*) 5 Mg Capsule, 10 MG PO TID, #2 CAP Librium 10 mg p.o. twice daily 1 day, then Librium 5 mg p.o. twice daily 1 day. Prov:MIRTHA SWAN NP 01/14/17 Folic Acid* (Folic Acid*) 1 Mg Tablet, 1 MG PO DAILY, #30 TAB Prov:MIRTHA SWAN NP 01/14/17 Thiamine* (Thiamine*) 100 Mg Tablet, 100 MG PO DAILY, #30 TAB Prov:MIRTHA SWAN NP 01/14/17 Pantoprazole* (Pantoprazole*) 40 Mg Tablet., 40 MG PO DAILY@06, #30 TAB Prov:MIRTHA SWAN NP 01/14/17 Allergies Allergies: Coded Allergies: No Known Allergy (Unverified , 03/30/17) PMhx/Soc Medical and Surgical Hx: pt denies Medical Hx, pt denies Surgical Hx History of Surgery: No Anesthesia Reaction: No Hx Neurological Disorder: No Hx Respiratory Disorders: No Hx Cardiac Disorders: No Hx Psychiatric Problems: No Hx Miscellaneous Medical Probl: No Hx Alcohol Use: Yes (vodka unk amount last drank today) Hx Substance Use: No Hx Tobacco Use: No Smoking Status: Former smoker Physical Exam Vitals Vital Signs Date Time Temp Pulse Resp B/P Pulse Ox O2 Delivery O2 Flow Rate FiO2 03/30/17 17:00 98.2 83 18 129/82 95 Room Air 03/30/17 14:38 98.2 114 18 165/111 97 Physical Exam Const: [] No apparent distress. Head: Atraumatic Eyes: Normal Conjunctiva, EOMI, PERRLA ENT: Normal External Ears, Nose and Mouth. Neck: Full range of motion..~No deformities.. Resp: Clear to auscultation bilaterally Cardio: Regular rate and rhythm, no murmurs Abd: Soft, non tender, non distended. Normal bowel sounds Skin: No petechiae or rashes Back: No midline or flank tenderness Ext: No cyanosis, or edema Neur: Awake and alert, unable to answer orientation questions secondary to intoxication, neurological examination were performed. Psych: Normal Mood and Affect Result Diagram: 03/30/17 1517 03/30/17 1517 Results 24 hrs Laboratory Tests Test 03/30/17 15:17 White Blood Count 2.510^3/ul Red Blood Count 4.8310^6/ul Hemoglobin 14.5g/dl Hematocrit 41.8% Mean Corpuscular Volume 86.5fl Mean Corpuscular Hemoglobin 30.0pg Mean Corpuscular Hemoglobin Concent 34.7g/dl Red Cell Distribution Width 14.9% Platelet Count 76421^3/UL Mean Platelet Volume 10.7fl Neutrophils % 46.4% Lymphocytes % 47.6% Monocytes % 4.4% Eosinophils % 0.0% Basophils % 1.2% Nucleated Red Blood Cells % 0.0/100WBC Neutrophils # 1.210^3/ul Lymphocytes # 1.210^3/ul Monocytes # 0.110^3/ul Eosinophils # 0.010^3/ul Basophils # 0.010^3/ul Nucleated Red Blood Cells # 0.010^3/ul Sodium Level 150mmol/L Potassium Level 3.6mmol/L Chloride Level 101mmol/L Carbon Dioxide Level 28mmol/L Anion Gap 25 Blood Urea Nitrogen 7mg/dl Creatinine 0.53mg/dl Glucose Level 127mg/dl Calcium Level 8.8mg/dl Current Medications Medications (Trade) Dose Ordered Sig/Nithin Route PRN Reason Start Time Stop Time Status Last Admin Dose Admin Sodium Chloride (NS) 1,000 ml @ 1,000 mls/hr Q1H STAT IV 03/30/17 14:50 03/30/17 15:49 DC 03/30/17 15:14 Ondansetron HCl (Zofran Inj) 4 mg ONCE STAT IV 03/30/17 14:50 03/30/17 14:53 DC 03/30/17 15:14 Procedures/MDM Acute alcohol intoxication with an episode of hematemesis. No visible bleeding in the mouth. Patient was put on monitor, given normal saline and Zofran. He had no further episodes of vomiting in the ER was monitored for greater than 5 hours. Evaluate him at 4 hours and he was able to speak and said he did not have any abdominal pain was feeling better however he is still too intoxicated to trust with discharge to himself. Performed neurological exam and patient was able to participate with no neurological deficits. Also still does not have any abdominal tenderness. Complete musculoskeletal survey reveals no signs of trauma. There is no evidence of infection, bleeding varices or any other serious acute process that would require admission. Anticipated the patient will be discharged he is sober. Oncoming physician will be dispensed positioning the patient. Departure Diagnosis: Primary Impression: Alcoholic intoxication Additional Impressions: Vomiting Hematemesis Condition: Stable AIYANA OAKES Mar 30, 2017 19:03
[2017-03-30 20:26] VITALS: BP 146/72; PULSE 81; RESP 18; TEMP 98.6
[2017-03-30] MEDS ORDERED: ONDA4TAB11 PO (20:37)
[2017-03-30] MEDS ORDERED: LIDOCAINE/MYLANTA 40 ML BTL ONE (22:04)
[2017-03-30] MEDS ORDERED: FAMOTIDINE 20 MG INJ ONE (22:04)
[2017-03-30] MEDS ORDERED: LIDOCAINE/MYLANTA 40 ML BTL PO ONE (22:30)
[2017-03-30] MEDS ORDERED: SOD CHLORIDE 0.9% 1,000 ML IV ONE (22:30)
[2017-03-30] MEDS ORDERED: FAMOTIDINE 20 MG TAB PO ONE (22:30)
--- NOTE | 2017-03-31 14:55 | EN ---
Date/Time of Note Date/Time of Note DATE: 03/31/17 TIME: 01:00AM ER Progress Note Observation Note Observation: 4 hours Subjective: This patient was signed out to me by Dr. Luigi Wallace on March. Very briefly, this is a patient who presents with alcohol intoxication. The patient's workup was reassuring and he was pending clinical sobriety. Family history: As indicated on the initial history and physical of this ER visit Objective: Vital signs reviewed Const: No apparent distress, well-developed, well-nourished Head: Normocephalic, Atraumatic Eyes: Normal Conjunctiva. ENT: Normal External Ears, Nose and Mouth. Neck: No meningismus. Resp: Symmetric chest wall huerta, no audible wheezes Cardio: Deferred Abd: Non distended Skin: No petechiae or rashes Back: Deferred Ext: No cyanosis, or edema Neur: Awake and alert, oriented 4. No facial droop. Normal strength and sensation. Assessment: Alcohol intoxication Plan: The patient was observed until clinical sobriety. The patient did endorse epigastric discomfort with some nausea during my evaluation. The patient was given Pepcid, a GI cocktail and IV fluids while being observed by me. Ultimately, the patient's mentation returned to baseline. He was alert and oriented. He was able to ambulate without difficulty. He tolerated oral intake without difficulty. Verbal discharge instructions were given to the patient. The patient left prior to receiving his hardcopy discharge paperwork. TIANNA SCOTT MD Mar 31, 2017 14:55
== END 2017-03-30 23:21 | disposition left against medical advice (07) ==
LOC: E/R 14:34
DX: F10.920 Alcohol use, unspecified with intoxication, uncomplicated (principal); Z87.891 Personal history of nicotine dependence
CPT/HCPCS: 36415; 80048; 85025; 96374; 96376; 99284; J2405; J7030

== ENCOUNTER 2017-04-05 14:04 | Emergency (ER) | payer SELFPAY ==
[~2017-04-05] VITALS: Ht 162.6 cm; Wt 65.5 kg
[~2017-04-05 14:04] MED LIST changes: -CHLO5CAP2 PO; -FER325 PO; -FOLI-49 PO; +ONDA4TAB11 PO; -ONDA4TAB14 PO; -PANT40TA3 PO; -PANT40TA4 PO; -THIA100T10 PO
[2017-04-05 14:22] VITALS: Ht 162.6 cm; Wt 65.5 kg
== END 2017-04-05 16:00 | disposition left against medical advice (07) ==
LOC: E/R 14:04
DX: Z53.21 Procedure and treatment not carried out due to patient leaving prior to being seen by health care provider (principal)

== ENCOUNTER 2017-05-13 08:30 | Emergency (ER) | END 2017-05-13 21:23 | disposition left against medical advice (07) ==

== ENCOUNTER 2017-05-15 22:48 | Emergency (ER) | END 2017-05-15 23:53 | disposition left against medical advice (07) ==

== ENCOUNTER 2017-07-03 19:46 | Emergency (ER) | END 2017-07-04 00:14 | disposition left against medical advice (07) ==

== ENCOUNTER 2017-07-08 14:07 | Emergency (ER) | END 2017-07-08 16:49 | disposition home or self-care (01) ==

== ENCOUNTER 2017-07-23 14:42 | Emergency (ER) | END 2017-07-24 01:52 | disposition home or self-care (01) ==

== ENCOUNTER 2017-07-25 13:10 | Emergency (ER) | END 2017-07-25 17:12 | disposition left against medical advice (07) ==

== ENCOUNTER 2017-08-04 23:35 | Emergency (ER) | END 2017-08-05 00:47 | disposition left against medical advice (07) ==

== ENCOUNTER 2017-08-06 02:33 | Emergency (ER) | END 2017-08-06 14:30 | disposition home or self-care (01) ==

== ENCOUNTER 2017-08-07 15:17 | Emergency (ER) | END 2017-08-07 23:50 | disposition home or self-care (01) ==

== ENCOUNTER 2017-08-18 16:55 | Inpatient (IN) | END 2017-08-20 13:20 | disposition home or self-care (01) | DRG 552 ==

== ENCOUNTER 2017-10-08 23:54 | Emergency (ER) | END 2017-10-09 07:30 | disposition home or self-care (01) ==

== ENCOUNTER 2017-10-15 00:24 | Emergency (ER) | END 2017-10-15 00:59 | disposition left against medical advice (07) ==

== ENCOUNTER 2017-10-16 15:28 | Emergency (ER) | END 2017-10-16 17:50 | disposition home or self-care (01) ==

== ENCOUNTER 2017-11-16 17:18 | Emergency (ER) | END 2017-11-17 00:50 | disposition home or self-care (01) ==

== ENCOUNTER 2017-11-19 11:08 | Emergency (ER) | END 2017-11-19 16:31 | disposition home or self-care (01) ==

== ENCOUNTER 2018-01-21 08:50 | Emergency (ER) | END 2018-01-21 11:53 | disposition left against medical advice (07) ==

== ENCOUNTER 2018-04-16 09:42 | Emergency (ER) | payer MEDICAID ==
[~2018-04-16] VITALS: Ht 162.6 cm; Wt 97.2 kg
[~2018-04-16 09:42] MED LIST changes: +LORA-441 PO; +METO10TA92 PO; +OMEP40CA6 PO; -ONDA4TAB11 PO; +ONDA4TAB8 PO
[2018-04-16 09:44] VITALS: Ht 162.6 cm; Wt 97.2 kg
[2018-04-16] MEDS ORDERED: SOD CHLORIDE 0.9% 1,000 ML IV STA (09:57)
[2018-04-16] MEDS ORDERED: KETOROLAC 15 MG INJ IV STA (10:57)
[2018-04-16 11:00] VITALS: BP 148/88; PULSE 88; RESP 18
--- NOTE | 2018-04-16 11:00 | ERD ---
ER Documentation Chief Complaint Chief Complaint ETOH,VOMITING BLOOD,MID ABDOMINAL PAIN,RIGHT EAR FOREIGN BODY HPI This is a 32-year-old who is well-known to [facility], who presents with hematemesis and alcohol intoxication. Also states that he has a foreign body in his right ear. Review of his DEAN care plan shows that the patient had 40 hospital visits over the last year. Patient has no fever. ROS All systems reviewed and are negative except as per history of present illness. Medications Home Meds Active Scripts Ondansetron Hcl* (Zofran*) 4 Mg Tablet, 4 MG PO Q6H for NAUSEA AND/OR VOMITING, #10 TAB Prov:CESARIO ABREU MD 01/21/18 Lorazepam* (Ativan*) 0.5 Mg Tablet, 0.5 MG PO Q8, #10 TAB Prov:CESARIO ABREU MD 01/21/18 Metoclopramide* (Reglan*) 10 Mg Tablet, 10 MG PO Q6 PRN for NAUSEA AND/OR VOMITING, #10 TAB Prov:JOE LUNA MD 11/19/17 Omeprazole* (Omeprazole*) 40 Mg Capsule.dr, 40 MG PO DAILY, #10 CAP Prov:JOE LUNA MD 11/19/17 Allergies Allergies: Coded Allergies: No Known Allergy (Unverified , 08/07/17) PMhx/Soc History of Surgery: No Anesthesia Reaction: No Hx Neurological Disorder: No Hx Respiratory Disorders: No Hx Cardiac Disorders: No Hx Psychiatric Problems: No Hx Miscellaneous Medical Probl: No Hx Alcohol Use: Yes (HEAVY ALCOHOL USER) Hx Substance Use: No Hx Tobacco Use: No Smoking Status: Never smoker Physical Exam Vitals Vital Signs Date Temp Pulse Resp B/P (MAP) Pulse Ox O2 O2 Flow FiO2 Time Delivery Rate 04/16/18 97.9 88 18 148/88 98 Room Air 11:00 (108) 04/16/18 97.7 102 18 159/101 98 09:44 (120) Physical Exam Const: No acute distress Head: Atraumatic Eyes: Normal Conjunctiva ENT: Normal External Ears, Nose and Mouth. Neck: Full range of motion. No meningismus. Resp: Clear to auscultation bilaterally Cardio: Regular rate and rhythm, no murmurs Abd: Soft, epigastric tender, non distended. Normal bowel sounds Skin: No petechiae or rashes Back: No midline or flank tenderness Ext: No cyanosis, or edema Neur: Awake and alert Psych: Normal Mood and Affect Result Diagram: 04/16/18 1013 04/16/18 1013 Results 24 hrs Laboratory Tests Test 04/16/18 10:13 White Blood Count 4.7 10^3/ul Red Blood Count 5.03 10^6/ul Hemoglobin 14.0 g/dl Hematocrit 40.1 % Mean Corpuscular Volume 79.7 fl Mean Corpuscular Hemoglobin 27.8 pg Mean Corpuscular Hemoglobin Concent 34.9 g/dl Red Cell Distribution Width 14.4 % Platelet Count 269 10^3/UL Mean Platelet Volume 10.1 fl Immature Granulocytes % 0.600 % Neutrophils % 69.8 % Lymphocytes % 25.4 % Monocytes % 3.8 % Eosinophils % 0.0 % Basophils % 0.4 % Nucleated Red Blood Cells % 0.0 /100WBC Immature Granulocytes # 0.030 10^3/ul Neutrophils # 3.3 10^3/ul Lymphocytes # 1.2 10^3/ul Monocytes # 0.2 10^3/ul Eosinophils # 0.0 10^3/ul Basophils # 0.0 10^3/ul Nucleated Red Blood Cells # 0.0 10^3/ul Sodium Level 145 mmol/L Potassium Level 3.7 mmol/L Chloride Level 102 mmol/L Carbon Dioxide Level 25 mmol/L Anion Gap 18 Blood Urea Nitrogen 11 mg/dl Creatinine 0.53 mg/dl Est Glomerular Filtrat Rate mL/min > 60 mL/min Glucose Level 123 mg/dl Calcium Level 8.7 mg/dl Total Bilirubin 0.5 mg/dl Direct Bilirubin 0.00 mg/dl Indirect Bilirubin 0.5 mg/dl Aspartate Amino Transf (AST/SGOT) 55 IU/L Alanine Aminotransferase (ALT/SGPT) 35 IU/L Alkaline Phosphatase 95 IU/L Total Protein 8.4 g/dl Albumin 4.9 g/dl Globulin 3.50 g/dl Albumin/Globulin Ratio 1.40 Lipase 52 U/L Current Medications Medications Dose Sig/Nithin Start Time Status Last (Trade) Ordered Route PRN Stop Time Admin Dose Reason Admin Sodium 1,000 ml @ Q1H STAT 04/16/18 DC 04/16/18 Chloride 1,000 mls/hr IV 09:57 04/16/18 10:09 10:56 Ketorolac 15 mg ONCE STAT 04/16/18 DC Tromethamine IV 10:57 04/16/18 (Toradol) 11:00 Procedures/MDM This is a 32-year-old male who presents for evaluation of epigastric pain, and hematemesis. Workup for evaluation of acute pancreatitis, was initiated, and lab work was also done, I do not get the opportunity to evaluate patient's years , as he got up from his guardian stated that he wished to leave AGAINST MEDICAL ADVICE, The patient has made the decision to leave this Emergency Department and any ongoing care against the advice of the emergency physician. The patient has been informed of and verbalized understanding of the inherent risks of this decision, including , disability and and worsening of his condition. The patient explained to me the reason for wanting to sign out against medical advice which was he did not want to wait for laboratory work]. The patient was given alternative therapeutic options including [analgesia]. The patient has the capacity to make this decision and accepts the responsibility of leaving at this time. The patient and all necessary parties have been advised that the patient may return at any time for further evaluation or treatment. The patient's condition at time of discharge is stable]. Departure Diagnosis: Primary Impression: Alcohol intoxication Complication of substance-induced condition: uncomplicated Qualified Codes: F10.920 - Alcohol use, unspecified with intoxication, uncomplicated Condition: Stable Patient Instructions: Alcohol Intoxication Additional Instructions: Call your primary care doctor TOMORROW for an appointment during the next 2-3 days.See the doctor sooner or return here if your condition worsens before your appointment time. BLAINE STERLING MD Apr 16, 2018 11:00
== END 2018-04-16 12:19 | disposition left against medical advice (07) ==
LOC: E/R 09:42
DX: F10.920 Alcohol use, unspecified with intoxication, uncomplicated (principal); R40.2142 Coma scale, eyes open, spontaneous, at arrival to emergency department; R40.2252 Coma scale, best verbal response, oriented, at arrival to emergency department; R40.2362 Coma scale, best motor response, obeys commands, at arrival to emergency department
CPT/HCPCS: 36415; 80053; 83690; 85025; J7030; Z7502

== ENCOUNTER 2018-04-24 10:08 | Emergency (ER) | payer MEDICAID ==
[~2018-04-24] VITALS: Ht 160 cm; Wt 145.0 kg
[2018-04-24 10:13] VITALS: BP 145/84; PULSE 107; RESP 26; Ht 160 cm; Wt 145.0 kg
--- NOTE | 2018-04-24 10:37 | EN ---
Date/Time of Note Date/Time of Note DATE: 04/24/18 TIME: 10:37 ER Progress Note Patient left from the emergency room about 5-10 minutes after he was put into his room. He was not seen by myself or other physician prior to this TYRON DANIELS DO Apr 24, 2018 10:37
== END 2018-04-24 10:24 | disposition left against medical advice (07) ==
LOC: E/R 10:08
DX: Z53.21 Procedure and treatment not carried out due to patient leaving prior to being seen by health care provider (principal)

== ENCOUNTER 2018-11-14 08:05 | Emergency (ER) | payer MEDICAID ==
[~2018-11-14] VITALS: Ht 162.6 cm; Wt 75.2 kg
[~2018-11-14 08:05] MED LIST changes: +FAMO-96 PO; +UDMYL PO
[2018-11-14 08:06] VITALS: Ht 162.6 cm; Wt 75.2 kg
[2018-11-14] MEDS ORDERED: ONDANSETRON (ODT) 4 MG TAB ODT STA (08:28)
[2018-11-14] MEDS ORDERED: LIDOCAINE/MYLANTA 40 ML BTL PO ONE (08:30)
[2018-11-14] MEDS ORDERED: FAMOTIDINE 20 MG TAB PO ONE (08:30)
[2018-11-14] MEDS ORDERED: ONDANSETRON 4 MG INJ IV STA (08:37)
--- NOTE | 2018-11-14 08:49 | ERD ---
ER Documentation Chief Complaint Chief Complaint been drinking alcohol x 8 days; vomittng blood; chest pain HPI This is a 33-year-old male with a significant history of chronic daily use, multiple previous episodes of gastritis and reported vomiting blood who is presenting today with constant moderate aching sharp cramping epigastric pain with associated nausea and an episode of reported bloody vomit this morning. The patient admits to waking up at 4:00AM this morning and drinking multiple beers. He endorses a decreased appetite. He does not endorse any other alleviating or exacerbating factors. The patient denies changes to bowel movements or urination. He denies any constipation or diarrhea. He does not endorse any black or bloody or tarry stools. He does not endorse dysuria or hematuria or urgency or frequency. The patient denies feeling sick recently. The patient denies fever or chills. The patient has had no headache or vision changes. The patient does not endorse neck or back pain. The patient denies lightheadedness or dizziness. The patient has had no chest pain or trouble breathing. The patient has had no focal deficits. The patient has had no weakness or numbness or tingling to the face or extremities. ROS All systems reviewed and are negative except as per history of present illness. Medications Home Meds Active Scripts Ondansetron Hcl* (Zofran*) 4 Mg Tablet, 4 MG PO Q6H for NAUSEA AND/OR VOMITING, #10 TAB Prov:CESARIO ABREU MD 01/21/18 Lorazepam* (Ativan*) 0.5 Mg Tablet, 0.5 MG PO Q8, #10 TAB Prov:CESARIO ABREU MD 01/21/18 Metoclopramide* (Reglan*) 10 Mg Tablet, 10 MG PO Q6 PRN for NAUSEA AND/OR VOMITING, #10 TAB Prov:JOE LUNA MD 11/19/17 Omeprazole* (Omeprazole*) 40 Mg Capsule.dr, 40 MG PO DAILY, #10 CAP Prov:JOE LUNA MD 11/19/17 Allergies Allergies: Coded Allergies: No Known Allergy (Unverified , 08/07/17) PMhx/Soc History of Surgery: No Anesthesia Reaction: No Hx Neurological Disorder: No Hx Respiratory Disorders: No Hx Cardiac Disorders: No Hx Psychiatric Problems: No Hx Miscellaneous Medical Probl: No Hx Alcohol Use: Yes (HEAVY ALCOHOL USER) Hx Substance Use: No Hx Tobacco Use: No FmHx Family History: No diabetes Physical Exam Vitals Vital Signs Date Temp Pulse Resp B/P (MAP) Pulse Ox O2 O2 Flow FiO2 Time Delivery Rate 11/14/18 98.3 79 22 139/98 98 Room Air 09:21 (112) 11/14/18 98.8 108 24 167/77 98 08:06 (107) Physical Exam Const: No acute distress Head: Atraumatic. Faint erythema to the cheeks. Eyes: Normal Conjunctiva ENT: Normal External Ears, Nose and Mouth. Neck: Full range of motion. No meningismus. Resp: Clear to auscultation bilaterally Cardio: Regular rate and rhythm, no murmurs Abd: Soft, non distended. Epigastric tenderness to palpation with voluntary guarding. No involuntary guarding. No rebound. Normal bowel sounds Skin: No petechiae or rashes Back: No midline or flank tenderness Ext: No cyanosis, or edema Neur: Awake and alert Psych: Anxious Result Diagram: 11/14/18 0839 11/14/18 0839 Results 24 hrs Laboratory Tests Test 11/14/18 08:39 White Blood Count 3.6 10^3/ul Red Blood Count 5.32 10^6/ul Hemoglobin 15.3 g/dl Hematocrit 44.1 % Mean Corpuscular Volume 82.9 fl Mean Corpuscular Hemoglobin 28.8 pg Mean Corpuscular Hemoglobin Concent 34.7 g/dl Red Cell Distribution Width 13.3 % Platelet Count 316 10^3/UL Mean Platelet Volume 10.3 fl Immature Granulocytes % 0.300 % Neutrophils % 52.0 % Lymphocytes % 40.8 % Monocytes % 5.5 % Eosinophils % 0.6 % Basophils % 0.8 % Nucleated Red Blood Cells % 0.0 /100WBC Immature Granulocytes # 0.010 10^3/ul Neutrophils # 1.9 10^3/ul Lymphocytes # 1.5 10^3/ul Monocytes # 0.2 10^3/ul Eosinophils # 0.0 10^3/ul Basophils # 0.0 10^3/ul Nucleated Red Blood Cells # 0.0 10^3/ul Prothrombin Time 12.8 Sec Prothrombin Time Ratio 1.0 INR International Normalized Ratio 0.95 Sodium Level 142 mmol/L Potassium Level 3.5 mmol/L Chloride Level 100 mmol/L Carbon Dioxide Level 27 mmol/L Anion Gap 15 Blood Urea Nitrogen 9 mg/dl Creatinine 0.64 mg/dl Est Glomerular Filtrat Rate mL/min > 60 mL/min Glucose Level 133 mg/dl Calcium Level 9.0 mg/dl Total Bilirubin 0.9 mg/dl Direct Bilirubin 0.00 mg/dl Indirect Bilirubin 0.9 mg/dl Aspartate Amino Transf (AST/SGOT) 52 IU/L Alanine Aminotransferase (ALT/SGPT) 41 IU/L Alkaline Phosphatase 93 IU/L Total Protein 8.6 g/dl Albumin 4.9 g/dl Globulin 3.70 g/dl Albumin/Globulin Ratio 1.32 Lipase 70 U/L Ethyl Alcohol Level 215.0 mg/dl Current Medications Medications Dose Sig/Nithin Start Time Status Last (Trade) Ordered Route PRN Stop Time Admin Dose Reason Admin Ondansetron 8 mg ONCE STAT 11/14/18 DC HCl (Zofran ODT 08:28 11/14/18 Odt) 08:38 Famotidine 20 mg ONCE ONCE 11/14/18 DC (Pepcid) PO 08:30 11/14/18 08:38 40 ml ONCE ONCE 11/14/18 DC 11/14/18 Miscellaneous PO 08:30 11/14/18 09:00 Medication 08:31 (Gi Cocktail (2)) Famotidine 20 mg ONCE ONCE 11/14/18 DC 11/14/18 (Pepcid Iv) IV 09:00 11/14/18 08:59 09:01 Ondansetron 4 mg ONCE STAT 11/14/18 DC 11/14/18 HCl (Zofran IV 08:37 11/14/18 09:00 Inj) 08:38 Thiamine 100 mg ONCE ONCE 11/14/18 DC 11/14/18 HCl PO 09:00 11/14/18 09:00 (Vitamin B1) 09:01 Folic Acid 1 mg ONCE ONCE 11/14/18 DC 11/14/18 (Folic Acid) PO 09:00 11/14/18 09:00 09:01 Sodium 1,000 ml @ Q1H ONCE 11/14/18 11/14/18 Chloride 1,000 mls/hr IV 09:00 8/5/19 09:00 09:59 Procedures/MDM MDM The patient's presentation warrants further investigation. Previous medical records, if available, were reviewed. LABS The patient's laboratory testing was obtained and reviewed. No emergent treatment was required unless described below. CBC: Leukopenia with low clinical suspicion for a systemic infection. No E/o anemia or thrombocytopenia Chemistry: No E/o severe acidosis or alkalosis or renal failure or liver disease or diabetic ketoacidosis PT/INR: No E/o significant coagulopathy Tox: E/o alcohol abuse. EKG EKG read by me: Rate/Rhythm: Regular rate and rhythm at a rate of 91 bpm Intervals: Normal [place]: Normal Impression: No evidence of acute ischemia or arrhythmia IMAGING Imaging and Radiology interpretation reviewed. CXR COMPARISON: 07/23/2017 FINDINGS: Lung volumes are mildly diminished. There is no airspace consolidation, focal infiltrate or effusion. Cardiac silhouette and mediastinal contours are unremarkable. Regional bones appear intact. IMPRESSION: Mildly diminished lung volumes, otherwise no acute findings. Electronically viewed and signed by Physician Linda on 11/14/2018 08:57 TREATMENT/DISPOSITION The patient presents for epigastric abdominal pain, nausea and reported episode of hematemesis. I do have high suspicion for alcoholic gastritis. The patient admits to chronic heavy daily alcohol abuse. The patient was observed in the emergency department without any episodes of vomiting. The patient's chest x- ray is unremarkable. I do not see any evidence of pneumoperitoneum or pneumomediastinum. I have very low suspicion for viscus perforation. I do not suspect Tasha-Lopez tear or Boerhaave syndrome. The patient was treated with IV fluids, Pepcid, GI cocktail and Zofran with some improvement of his symptoms. The patient does not have any evidence of peritonitis. The patient does not have clinical symptoms concerning for mesenteric ischemia or ischemic colitis. The patient does not have right upper quadrant tenderness, and I have low suspicion for gallstones, cholecystitis or biliary colic. The patient does not have left upper quadrant tenderness. I have low suspicion for pancreatitis. The patient does not have any right lower quadrant tenderness, or periumbilical tenderness. I have low suspicion for appendicitis. The patient does not have suprapubic tenderness. I have decreased suspicion for cystitis. The patient does not have any left lower quadrant tenderness, and I have low suspicion for diverticulosis or diverticulitis. The patient does not have any flank tenderness. The patient does not have gross hematuria. I have decreased suspicion for nephrolithiasis or renal colic. The patient does not have any palpable pulsatile mass or severe abdominal pain radiating to the back. I have low suspicion for aortic aneurysm, dissection or rupture. The patient's alcohol level is elevated. The patient was counseled extensively on the need for alcohol rehabilitation. He was offered resources. He is with family today. I do feel that he may be safely discharged. DISCHARGE Upon reevaluation of the patient, symptoms have improved. No emergent diagnoses were identified. At this time, I feel that the patient stable for discharge. The patient was instructed to follow-up with a primary care physician in 1-3 days. The patient will be given strict precautions with which to return to the emergency department. Prescriptions: KenyoncidCarmenfran The patient's blood pressure was elevated at greater than 120/80 while in the emergency department. The patient was otherwise stable with no evidence of hypertensive urgency or emergency. The patient does not require admission for blood pressure control. I have discussed with the patient the risks of hypertension. I have instructed the patient to return to the ER for any new or worsening symptoms including chest pain, shortness of breath, headache, blurred vision, confusion, nausea, vomiting or LOC. I have advised the patient to follow up with the primary care physician for outpatient monitoring and treatment for hypertension in 1-3 days. DISCLAIMER Inadvertent spelling and grammatical errors are likely due to EHR/dictation software use and do not reflect on the overall quality of patient care. Note that the electronic time recorded on this note does not necessarily reflect the actual time of the patient encounter. Departure Diagnosis: Primary Impression: Alcoholic gastritis Chronicity: acute Gastritis bleeding: with bleeding Qualified Codes: K29.21 - Alcoholic gastritis with bleeding Additional Impressions: Alcoholic intoxication Complication of substance-induced condition: uncomplicated Qualified Codes: F10.920 - Alcohol use, unspecified with intoxication, uncomplicated Nausea & vomiting Vomiting type: unspecified Vomiting Intractability: non-intractable Qualified Codes: R11.2 - Nausea with vomiting, unspecified Leukopenia Leukopenia type: lymphocytopenia Qualified Codes: D72.810 - Lymphocytopenia Condition: Stable Patient Instructions: Alcohol Intoxication, Nausea and Vomiting-Adult Additional Instructions: Thank you for for coming to [facility] for your care today. Please ask your nurse or provider if you have questions about your care today and do not leave until all your questions have been answered. Please use any medications given as directed and follow-up with your doctor (or the doctor you were referred to) in the next 1-3 days. If you do not have a primary care doctor you may follow up at the [facility] or formerly [facility], [facility] (listed below). You may also use motrin and tylenol as needed for fever and/or pain unless instructed otherwise by your provider or nurse. Indications for more urgent follow-up have been discussed, but you may return to the Emergency Department at ANY time for any worrisome or worsening symptoms. If you have abdominal pain, please know that no test or exam you received is perfect and you should follow up within 8 hours for continued pain. If you had any imaging studies today, such as an X-Ray or CT Scan, these studies will be reviewed later by a radiologist. You will be called if there are important findings that were not identified today, so make sure the contact information you provided at registration is correct. If you received any narcotic pain control medicine today, such as Vicodin, Morphine or Dilaudid, your coordination and judgment may be affected for a number of hours. Please do not drive or operate heavy machinery, and you may want someone to assist you at home. If you were given a prescription for na rcotic medication, be aware that it is very addictive- use sparingly and only if necessary. PLEASE SEEK FURTHER EVALUATION AND MANAGEMENT AT YOUR DOCTORS OFFICE WITHIN THE NEXT 1-3 DAYS. IT IS YOUR RESPONSIBILITY TO MAKE AN APPOINTMENT FOR FOLOW-UP CARE. IF YOU HAVE A PRIMARY DOCTOR, PLEASE CALL THEIR OFFICE TO SCHEDULE AN APPOINTMENT FOR FOLLOW UP. IF YOU DO NOT HAVE A PRIMARY DOCTOR YOU CAN CALL OUR PHYSICIAN REFERRAL HOTLINE AT IF YOU CAN NOT AFFORD TO SEE A PHYSICIAN YOU CAN CHOSE FROM THE FOLLOWING [facility]: [facility] [address] [facility] [address] [facility] [address] [facility] [address]. [facility] [address] [facility]. [facility] [address] TIANNA CONNELLY MD Nov 14, 2018 08:48
[2018-11-14] MEDS ORDERED: FAMOTIDINE 20 MG INJ IV ONE (09:00)
[2018-11-14] MEDS ORDERED: FOLIC ACID 1 MG TAB PO ONE (09:00)
[2018-11-14] MEDS ORDERED: THIAMINE 100 MG TAB PO ONE (09:00)
[2018-11-14] MEDS ORDERED: SOD CHLORIDE 0.9% 1,000 ML IV ONE (09:00)
[2018-11-14 10:30] VITALS: BP 136/92; PULSE 88; RESP 18
== END 2018-11-14 10:36 | disposition home or self-care (01) ==
LOC: E/R 08:05
DX: K29.21 Alcoholic gastritis with bleeding (principal); F10.920 Alcohol use, unspecified with intoxication, uncomplicated; D72.810 Lymphocytopenia
CPT/HCPCS: 36415; 71045; 80053; 80307; 83690; 85025; 85610; 93005; 96374; 96375; J2405; J7030; Z7502; Z7610